=== PATIENT | male | born 1965 | race Caucasian/White ===

== ENCOUNTER 2016-10-21 22:00 | Inpatient (IN) | payer BC ==
[~2016-10-21] VITALS: Ht 175.3 cm; Wt 103.4 kg
--- NOTE | 2016-10-21 22:20 | ED Cardiac General ---
History of Present Illness General Chief Complaint: Cardiac/General Problems Stated Complaint: ELEVATED BLOOD PRESSURE Source: patient Exam Limitations: no limitations History of Present Illness Time seen by provider: 22:18 Initial Comments To ER with reports of hypertension, headache and general malaise. He also reports increasing shortness of breath with minimal activity over the past few days. He's had issues with hypertension in the past and is currently on Bystolic and was started on lisinopril 5 mg 2 days ago. 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 Also states that he's had chest heaviness/tightness that has awakened him from sleep over the course of the past week. He did have a stress test and a cardiac catheterization about 9 years ago. He does not have chest pain present currently, but does c/o headache without focal neurologic symptoms, general fatigue. Location: central Activities at Onset: none NTG SL DATA DEVELOPER: No ASA po DATA DEVELOPER: No Allergies and Home Medications Allergies Coded Allergies: tramadol (Verified Allergy, Unknown, 10/21/16) Review of Systems Constitutional: see HPINo chills, No fever EENTM: No Symptoms Reported Respiratory: See HPI SOA With Exertion Cardiovascular: See HPI Chest Pain Gastrointestinal: No Symptoms Reported Genitourinary: No Symptoms Reported Musculoskeletal: no symptoms reported Skin: no symptoms reported Psychiatric/Neurological: No Symptoms Reported Physical Exam Vital Signs Vital Sign - Last 12Hours 10/21/16 22:00 Temp 98.8 Pulse 73 Resp 20 B/P 161/109 Pulse Ox 99 O2 Delivery Room Air Capillary Refill : General Appearance: No Apparent Distress WD/WN HEENT: PERRL/EOMI TMs Normal Neck: Full Range of Motion Normal Inspection Respiratory: No Accessory Muscle Use No Respiratory Distress Cardiovascular: Regular Rate, Rhythm Normal Peripheral Pulses Gastrointestinal: Normal Bowel Sounds Non Tender Soft Extremity: Normal Capillary Refill Normal Inspection Neurologic/Psychiatric: Alert Oriented x3 No Motor/Sensory Deficits Skin: Normal Color Warm/Dry Progress/Results/Core Measures Results/Orders Lab Results Laboratory Tests Test 10/21/16 22:08 Range/Units Activated Partial Thromboplast Time 27 24-35 SEC Alanine Aminotransferase (ALT/SGPT) 58 H 0-55 U/L Albumin 4.3 3.2-4.5 G/DL Alkaline Phosphatase 96 40-136 U/L Anion Gap 12 5-14 MMOL/L Aspartate Amino Transf (AST/SGOT) 28 5-34 U/L B-Type Natriuretic Peptide < 10.0 <100.0 PG/ML BUN/Creatinine Ratio 12 Basophils # (Auto) 0.0 0.0-0.1 10^3/uL Basophils (%) (Auto) 1 0-10 % Blood Urea Nitrogen 14 7-18 MG/DL Calcium Level 9.2 8.5-10.1 MG/DL Carbon Dioxide Level 22 21-32 MMOL/L Chloride Level 104 98-107 MMOL/L Creatinine 1.13 0.60-1.30 MG/DL Eosinophils # (Auto) 0.1 0.0-0.3 10^3/uL Eosinophils (%) (Auto) 2 0-10 % Estimat Glomerular Filtration Rate > 60 Glucose Level 114 H 70-105 MG/DL Hematocrit 48 40-54 % Hemoglobin 17.0 13.3-17.7 G/DL INR Comment 0.9 0.8-1.4 Lymphocytes # (Auto) 3.6 1.0-4.0 X 10^3 Lymphocytes (%) (Auto) 44 12-44 % Magnesium Level 2.5 H 1.8-2.4 MG/DL Mean Corpuscular Hemoglobin 29 25-34 PG Mean Corpuscular Hemoglobin Concent 35 32-36 G/DL Mean Corpuscular Volume 82 80-99 FL Mean Platelet Volume 11.0 H 7.4-10.4 FL Monocytes # (Auto) 0.7 0.0-1.0 X 10^3 Monocytes (%) (Auto) 8 0-12 % Myoglobin 63.4 10.0-92.0 NG/ML Neutrophils # (Auto) 3.8 1.8-7.8 X 10^3 Neutrophils (%) (Auto) 46 42-75 % Platelet Count 243 130-400 10^3/uL Potassium Level 3.7 3.6-5.0 MMOL/L Prothrombin Time 12.3 12.2-14.7 SEC Red Blood Count 5.84 4.35-5.85 10^6/uL Red Cell Distribution Width 13.1 10.0-14.5 % Sodium Level 138 135-145 MMOL/L Total Bilirubin 1.4 H 0.1-1.0 MG/DL Total Protein 7.2 6.4-8.2 G/DL Troponin I < 0.30 <0.30 NG/ML White Blood Count 8.3 4.3-11.0 10^3/uL My Orders Orders-CROSSPENNIE APRN Cbc With Automated Diff (10/21/16 22:07) Magnesium (10/21/16 22:07) Chest 1 View, Ap/Pa Only (10/21/16 22:07) Ekg Tracing (10/21/16 22:07) Cardiac Profile 1 (10/21/16 22:07) Comprehensive Metabolic Panel (10/21/16 22:07) Myoglobin Serum (10/21/16 22:07) Protime With Inr (10/21/16:) Partial Thromboplastin Time (10/21/16 22:07) O2 (10/21/16 22:07) Monitor-Rhythm Ecg Trace Only (10/21/16 22:07) Lipid Panel (10/22/16 06:00) Saline Lock/Iv-Start (10/21/16 22:07) Ct Head Wo (10/21/16 22:07) BNP (10/21/16 22:07) Labetalol Injection (Normodyne Injection (10/21/16 22:30) Fentanyl Injection (Sublimaze Injection (10/21/16 22:30) Enalaprilat Injection (Vasotec Injection (10/21/16 22:30) Lipase (10/21/16 22:51) Medications Given in ED Current Medications Medications Dose Ordered Sig/Prince Route Start Time Stop Time Status Last Admin Dose Admin Enalaprilat 2.5 mg ONCE ONCE IV 10/21/16 22:30 10/21/16 22:32 DC 10/21/16 22:36 2.5 MG Fentanyl Citrate 50 mcg ONCE ONCE IVP 10/21/16 22:30 10/21/16 22:32 DC 10/21/16 22:36 50 MCG Vital Signs/I&O Vital Sign - Last 12Hours 10/21/16 22:00 Temp 98.8 Pulse 73 Resp 20 B/P 161/109 Pulse Ox 99 O2 Delivery Room Air Diagnostic Imaging Diagonstic Imaging: CT Comments CT scan of the head shows no intracranial hemorrhage or mass effect or edema. No evidence of acute cortical stroke. The visualized sinuses and mastoid air cells are clear. Departure Communication Time/Spoke to Admitting Phy: 23:05 Communication Discussed the case with Dr. Braga. She agrees patient should be admitted for cardiac workup. Time/Spoke to Consulting Physi: 23:05 Communication/Consulting Discussed the case with Dr. Navarro and he agrees to consult Progress Notes 2245- blood pressure was 169/110 on arrival here. Heart rate 70 and regular. Patient was then given a small amount of Vasotec injection, RN believes to be about a quarter of the 2.5 mg dose ordered (0.625 mg) and blood pressure was 150 /93. No additional Vasotec was given even though this reduction in blood pressure was unlikely to be related to the Vasotec. 2306-blood pressure is currently 138/89, heart rate 69 on sinus without ectopy or ST segment changes Impression Impression: Primary Impression: Intermittent chest pain Additional Impressions: Dyspnea on exertion Hypertensive urgency Disposition: ADMITTED INPATIENT Condition: Stable Decision to Admit Reason: Admit from ER (General) Decision to Admit/Date: Oct 21, 2016 Time/Decision to Admit Time: 22:46 Departure-Patient Inst. Referrals: NO,LOCAL PHYSICIAN (PCP/Family) Primary Care Physician PENNIE CROSS APRN Oct 21, 2016 22:20
[2016-10-21] MEDS ORDERED: LABETALOL HCL 20 MG/4 ML VIAL IV ONE (22:30)
[2016-10-21] MEDS ORDERED: fentaNYL INJECTION 100 MCG/2 ML AMP IVP ONE (22:30)
[2016-10-21] MEDS ORDERED: ENALAPRILAT 2.5 MG/2 ML (VASOTEC) VIAL IV ONE (22:30)
[2016-10-21 22:31] LABS: BASOPHILS % (AUTO) 1 % (0-10); EOSINOPHILS # (AUTO) 0.1 10^3/uL (0.0-0.3); EOSINOPHILS % (AUTO) 2 % (0-10); LYMPHOCYTES # (AUTO) 3.6 X 10^3 (1.0-4.0); LYMPHOCYTES % (AUTO) 44 % (12-44); MEAN CORPUSCULAR HEMOGLOBIN 29 PG (25-34); MEAN CORPUSCULAR HGB CONC 35 G/DL (32-36); MEAN CORPUSCULAR VOLUME 82 FL (80-99); MONOCYTES # (AUTO) 0.7 X 10^3 (0.0-1.0); MONOCYTES % (AUTO) 8 % (0-12); NEUTROPHILS # (AUTO) 3.8 X 10^3 (1.8-7.8); NEUTROPHILS % (AUTO) 46 % (42-75); PLATELET COUNT 243 10^3/uL (130-400); RED BLOOD COUNT 5.84 10^6/uL (4.35-5.85); RED CELL DISTRIBUTION WIDTH 13.1 % (10.0-14.5); WHITE BLOOD COUNT 8.3 10^3/uL (4.3-11.0)
[2016-10-21 22:43] LABS: INR 0.9 (0.8-1.4); PROTHROMBIN TIME PATIENT 12.3 SEC (12.2-14.7)
[2016-10-21 22:51] LABS: ALANINE AMINOTRANSFERASE 58 U/L (0-55); ALBUMIN 4.3 G/DL (3.2-4.5); ANION GAP 12 MMOL/L (5-14); ASPARTATE AMINO TRANSFERASE 28 U/L (5-34); BILIRUBIN,TOTAL 1.4 MG/DL (0.1-1.0); BLOOD UREA NITROGEN 14 MG/DL (7-18); BUN/CREATININE RATIO 12; CALCIUM 9.2 MG/DL (8.5-10.1); CARBON DIOXIDE 22 MMOL/L (21-32); CHLORIDE 104 MMOL/L (98-107); CREATININE SERUM 1.13 MG/DL (0.60-1.30); GFR ESTIMATED > 60; GLUCOSE 114 MG/DL (70-105); MAGNESIUM 2.5 MG/DL (1.8-2.4); POTASSIUM 3.7 MMOL/L (3.6-5.0); SODIUM 138 MMOL/L (135-145); TOTAL PROTEIN 7.2 G/DL (6.4-8.2)
[2016-10-21 22:58] LABS: MYOGLOBIN SERUM 63.4 NG/ML (10.0-92.0)
[2016-10-21 23:55] VITALS: BP 154/98
[2016-10-22] VITALS (10 sets, daily range): BP systolic 104–152; BP diastolic 65–99
[2016-10-22] MEDS ORDERED: ACETAMINOPHEN 325 MG TABLET/CAPLET (TYLENOL) ONE (00:01)
[2016-10-22] MEDS ORDERED: IBUPROFEN 800 MG (MOTRIN) TAB PO ONE (00:13)
[2016-10-22] MEDS: IBUPROFEN 800 MG (MOTRIN) TAB PO PRN ×2 (00:32→08:01)
[2016-10-22] MEDS ORDERED: ACETAMINOPHEN 325 MG TABLET/CAPLET (TYLENOL) PO PRN (01:45)
[2016-10-22] MEDS ORDERED: ENALAPRILAT 2.5 MG/2 ML (VASOTEC) VIAL IV PRN (01:45)
[2016-10-22] MEDS ORDERED: ONDANSETRON 4 MG/2 ML (SDV) Z0FRAN IV PRN (01:45)
[2016-10-22 05:11] LABS: CHOLESTEROL 131 MG/DL (< 200); DIRECT LDL 61 MG/DL (1-129); TRIGLYCERIDES 333 MG/DL (<150); VLDL CHOLESTEROL 67 MG/DL (5-40)
--- NOTE | 2016-10-22 06:09 | Diagnostic Imaging Report ---
INDICATION: Hypertension with headache. Comparison with 07/19/2016 FINDINGS: Portable chest shows the lungs to be well-aerated and clear. The heart is not enlarged. No hilar adenopathy. No pulmonary edema. No pneumothorax or pleural effusion. IMPRESSION: Normal portable chest. No changes since previous exam. Dictated by: Dictated on workstation # [id number]
--- NOTE | 2016-10-22 07:39 | Diagnostic Imaging Report ---
PROCEDURE: CT head without contrast. TECHNIQUE: Multiple contiguous axial images were obtained through the brain without the use of intravenous contrast. INDICATION: Hypertension with severe headaches. Baseline. FINDINGS: There is no evidence of intracranial hemorrhage. There is no mass effect or edema. The cortical gyral pattern is normal with no shift of the midline. Basal cisterns are clear. The paranasal sinuses and mastoid air cells are clear. IMPRESSION: Normal CT head without contrast. These findings are in agreement with the preliminary report. Dictated by: Dictated on workstation # [id number]
[2016-10-22] MEDS ORDERED: IBUP-30 PO (08:28)
[2016-10-22] MEDS ORDERED: LISI-556 PO (08:28)
[2016-10-22] MEDS ORDERED: PITA2TAB2 PO (08:28)
[2016-10-22] MEDS ORDERED: NEBI5TAB8 PO (08:28)
--- NOTE | 2016-10-22 08:56 | Consultation-Cardiology ---
HPI-Cardiology Cardiology Consultation Date of Consultation 10/22/16 Date of Admission Indication: chest pain HPI 51-year-old gentleman with history of hypertension, had a cardiac catheterization about 9 years ago and reported that it was normal. 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 Has been having increasing dyspnea on exertion and significant headache, noted to have severe hypertension. Blood pressure improve after loading him with medication. He did not have any further episode of chest pain, still having mild upper epigastric tenderness, reproducible. Denied any palpitation, syncope or near syncopal episodes. Home Medications & Allergies Allergies: Coded Allergies: tramadol (Verified Allergy, Unknown, 10/21/16) Home Medication List Reviewed: Yes IOD-Aumkaf-Qgwnzs Hx Patient Social History Alcohol Use: Occasionally Uses Recreational Drug Use: No Smoking Status: Former Smoker Type Used: Cigarettes Recent Foreign Travel: No Recent Infectious Disease Expo: No Recent Hopitalizations: No Physical Abuse Screen: No Sexual Abuse: No Immunizations Up To Date Date of Influenza Vaccine: Jun 21, 2016 Past Medical History past medical history as discussed below Family Medical History Family Medical Hx noncontributory Constitutional: no symptoms reported see HPI malaise EENTM: no symptoms reported see HPI Respiratory: see HPINo cough, dyspnea on exertionNo hemoptysis, No orthopnea , No phlegm, No short of breath, No stridor, No wheezing, No other Cardiovascular: see HPI chest painNo edema, No Hx of Intervention, No palpitations, No syncope, No vascular heart diseas, No other Gastrointestinal: see HPI abdominal pain other (heartburn) Genitourinary: no symptoms reported see HPI Musculoskeletal: no symptoms reported see HPI Skin: no symptoms reported see HPI Psychiatric/Neurological: No Symptoms Reported See HPI Reviewed Test Results Reviewed Test Results Lab Laboratory Tests Test 10/21/16 22:08 10/22/16 04:07 Range/Units Activated Partial Thromboplast Time 27 24-35 SEC Alanine Aminotransferase (ALT/SGPT) 58 H 0-55 U/L Albumin 4.3 3.2-4.5 G/DL Alkaline Phosphatase 96 40-136 U/L Anion Gap 12 5-14 MMOL/L Aspartate Amino Transf (AST/SGOT) 28 5-34 U/L B-Type Natriuretic Peptide < 10.0 <100.0 PG/ML BUN/Creatinine Ratio 12 Basophils # (Auto) 0.0 0.0-0.1 10^3/uL Basophils (%) (Auto) 1 0-10 % Blood Urea Nitrogen 14 7-18 MG/DL Calcium Level 9.2 8.5-10.1 MG/DL Carbon Dioxide Level 22 21-32 MMOL/L Chloride Level 104 98-107 MMOL/L Creatinine 1.13 0.60-1.30 MG/DL Eosinophils # (Auto) 0.1 0.0-0.3 10^3/uL Eosinophils (%) (Auto) 2 0-10 % Estimat Glomerular Filtration Rate > 60 Glucose Level 114 H 70-105 MG/DL Hematocrit 48 40-54 % Hemoglobin 17.0 13.3-17.7 G/DL INR Comment 0.9 0.8-1.4 Lipase 37 8-78 U/L Lymphocytes # (Auto) 3.6 1.0-4.0 X 10^3 Lymphocytes (%) (Auto) 44 12-44 % Magnesium Level 2.5 H 1.8-2.4 MG/DL Mean Corpuscular Hemoglobin 29 25-34 PG Mean Corpuscular Hemoglobin Concent 35 32-36 G/DL Mean Corpuscular Volume 82 80-99 FL Mean Platelet Volume 11.0 H 7.4-10.4 FL Monocytes # (Auto) 0.7 0.0-1.0 X 10^3 Monocytes (%) (Auto) 8 0-12 % Myoglobin 63.4 10.0-92.0 NG/ML Neutrophils # (Auto) 3.8 1.8-7.8 X 10^3 Neutrophils (%) (Auto) 46 42-75 % Platelet Count 243 130-400 10^3/uL Potassium Level 3.7 3.6-5.0 MMOL/L Prothrombin Time 12.3 12.2-14.7 SEC Red Blood Count 5.84 4.35-5.85 10^6/uL Red Cell Distribution Width 13.1 10.0-14.5 % Sodium Level 138 135-145 MMOL/L Total Bilirubin 1.4 H 0.1-1.0 MG/DL Total Protein 7.2 6.4-8.2 G/DL Troponin I < 0.30 < 0.30 <0.30 NG/ML White Blood Count 8.3 4.3-11.0 10^3/uL Cholesterol Level 131 < 200 MG/DL HDL Cholesterol 27 L 40-60 MG/DL LDL Cholesterol Direct 61 1-129 MG/DL Triglycerides Level 333 H <150 MG/DL VLDL Cholesterol 67 H 5-40 MG/DL Physical Exam Vital Signs Vital Sign - Last 12Hours 10/21/16 22:00 Temp 98.8 Pulse 73 Resp 20 B/P 161/109 Pulse Ox 99 O2 Delivery Room Air Capillary Refill : Less Than 3 Seconds General Appearance: No Apparent Distress WD/WN Eyes: Bilateral Eye EOMI, Bilateral Eye Normal Inspection, Bilateral Eye PERRL HEENT: PERRL/EOMI TMs Normal Normal ENT Inspection Pharynx Normal Neck: Full Range of Motion Normal Inspection Non Tender Supple Carotid Bruit Respiratory: Chest Non Tender Lungs Clear Normal Breath Sounds No Accessory Muscle Use No Respiratory Distress Cardiovascular: Regular Rate, Rhythm No Edema No Gallop No JVD No Murmur Normal Peripheral Pulses Gastrointestinal: Normal Bowel Sounds No Organomegaly No Pulsatile Mass Non Tender Soft Back: Normal Inspection No CVA Tenderness No Vertebral Tenderness Extremity: Normal Capillary Refill Normal Inspection Normal Range of Motion Non Tender No Calf Tenderness No Pedal Edema Neurologic/Psychiatric: Alert Oriented x3 No Motor/Sensory Deficits Normal Mood/Affect Skin: Normal Color Warm/Dry Lymphatic: No Adenopathy A/P-Cardiology Admission Diagnosis Chest pain nonspecific etiology Hypertensive emergency Hyperlipidemia/hypertriglyceridemia Abdominal pain Assessment/Plan Chest pain nonspecific etiology atypical in presentation, resembling angina, planning to proceed with stress test today, cardiac enzymes and EKG did not show any acute abnormality Shortness of breath on exertion, planning to evaluate exercise stress test. Hypertension, hypertensive emergency with headache. Blood pressure is better, secondary to noncompliance with diet and medication, restarted on medication, educated in length about diet. Hyperlipidemia/hypertriglyceridemia. Patient was educated on diet, restart medication and monitor lipids. Gastroesophageal reflux disease, history of peptic ulcer disease, heartburn and abdominal discomfort, tobaccoism, will need to have EGD done as an outpatient. Tobaccoism, patient chewed tobacco daily. Educated on avoiding tobacco product. Obesity, BMI 33, educated on diet and weight loss. Clinical Quality Measures AMI/AHF: ASA po Prior to arrival: No DVT/VTE Risk/Contraindication: Risk Factor Score Per Nursin RFS Level Per Nursing on Admit: 2=Moderate DINAH JOSE MD Oct 22, 2016 08:56
[2016-10-22] MEDS ORDERED: PANTOPRAZOLE 40 MG/10 ML (PROTONIX) VIAL IV SCH (09:00)
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
[2016-10-22] MEDS ORDERED: CATHETER FLUSH 10 ML SYR IV PRN (10:15)
[2016-10-22] MEDS ORDERED: NFNEB10T PO (10:55)
[2016-10-22] MEDS ORDERED: LISI-552 PO (10:55)
[2016-10-22] MEDS ORDERED: lisINopril 20 MG (ZESTRIL) TAB PO NR (10:58)
[2016-10-22] MEDS ORDERED: lisINopril 20 MG (ZESTRIL) TAB ONE (10:58)
[2016-10-22] MEDS ORDERED: CATHETER FLUSH 10 ML SYR IV SCH (14:00)
--- NOTE | 2016-10-23 08:33 | STRESS TEST ---
PROCEDURE PHYSICIAN: DINAH JOSE DATE OF PROCEDURE: 10/22/2016 EXERCISE ECHOCARDIOGRAM STRESS TEST REPORT: REFERRING PHYSICIAN: Dr. Braga. INDICATION FOR THE PROCEDURE: Chest pain. BASELINE HEART RATE: 61 BASELINE BLOOD PRESSURE: 121/71 BASELINE EKG: Sinus rhythm with no ischemic changes. IN SUMMARY: The patient started exercising with a baseline heart rate, blood pressure and EKG mentioned above. He was able to exercise for total of 9 minutes on standard Narendra protocol, achieving maximum heart rate of 144, which is 85% of maximum expected heart rate. With peak exercise level, EKG was showing minimal nondiagnostic changes. Blood pressure was 197/79. He was fairly short of breath. O2 sat was 93%. During recovery, heart rate and blood pressure returned to baseline, EKG returned to baseline. Echocardiographic images were acquired and reviewed in the parasternal long axis parasternal short axis, apical 4 chamber and apical 2 chamber views. Review of the images showed normal left ventricular size with normal contractility with no ischemic changes. IN CONCLUSION: 1. Good exercise tolerance a total of 9 minutes on standard Narendra protocol. Total of 10.1 METs, achieving 85% of maximum expected heart rate. 2. Hypertensive response to exercise returned to baseline during recovery. 3. Minimal nondiagnostic EKG changes with exercise. Returned to baseline during recovery. 4. Normal echocardiographic images at rest and with peak stress test with no ischemic changes. 5. Definity was used for enhancement of the left ventricular cavity. Job ID: [id number] Dictated Date: 10/22/2016 17:39:29 Obstetrics/Gynecology Nurse Date: 10/23/2016 08:30:30 / jennifer
== END 2016-10-22 11:35 | disposition home or self-care (01) | DRG 305 ==
LOC: EDUNIT# 22:06 → ER 22:06 → ICU 22:30
PROVIDERS: ADMIT Family Medicine; ATTEND Family Medicine
DX: I16.0 Hypertensive urgency (principal); I10 Essential (primary) hypertension; R07.89 Other chest pain; Z91.14 Patient's other noncompliance with medication regimen; E78.5 Hyperlipidemia, unspecified; E78.1 Pure hyperglyceridemia; K21.9 Gastro-esophageal reflux disease without esophagitis; F17.220 Nicotine dependence, chewing tobacco, uncomplicated; E66.9 Obesity, unspecified; Z68.33 Body mass index [BMI] 33.0-33.9, adult
CPT/HCPCS: 36415; 70450; 71010; 80053; 80061; 83690; 83735; 83874; 83880; 84484; 85025; 85610; 85730; 93005; 96374; 96375

== ENCOUNTER 2016-11-03 09:00 | Outpatient (CLI) | payer BC ==
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
[~2016-11-03] VITALS: Ht 175.3 cm; Wt 108.9 kg
[~2016-11-03 09:00] MED LIST: IBUP-30 PO; LISI-552 PO; LISI-556 PO; NEBI5TAB8 PO; NFNEB10T PO; PITA2TAB2 PO
[2016-11-03] MEDS ORDERED: NFNEB10T PO (09:30)
[2016-11-03] MEDS ORDERED: LISI-552 PO (09:30)
[2016-11-03] MEDS ORDERED: AMOX500C2 PO (09:30)
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
[2016-11-04] MEDS ORDERED: PANT40TA2 PO (11:43)
[2016-11-04] MEDS ORDERED: SUCR1TAB36 PO (11:43)
[2016-11-08] MEDS ORDERED: DIAZ5TAB3 PO (10:59)
[2016-11-08] MEDS ORDERED: SENN-1 PO (10:59)
[2016-11-08] MEDS ORDERED: OXYC-465 PO (10:59)
[2016-11-08] MEDS ORDERED: ASPI325T32 PO (10:59)
[2016-11-08] MEDS ORDERED: OXC20TCR PO (10:59)
[2016-11-14] MEDS ORDERED: AMLO10TA2 PO (11:19)
== END 2016-11-03 09:41 ==
LOC: PREOP 09:00
PROVIDERS: ATTEND Surgery
DX: Z01.818 Encounter for other preprocedural examination (principal); K21.9 Gastro-esophageal reflux disease without esophagitis; Z12.11 Encounter for screening for malignant neoplasm of colon

== ENCOUNTER 2016-11-04 09:40 | Day surgery (SDC) | payer BC ==
[~2016-11-04] VITALS: Ht 175.3 cm; Wt 108.9 kg
[~2016-11-04 09:40] MED LIST changes: +AMOX500C2 PO
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
[2016-11-04] MEDS ORDERED: NS IV 1000 ML 1,000 ML IV STA (10:01)
--- NOTE | 2016-11-04 10:03 | Progress Note-Pre Operative ---
Pre-Operative Progress Note H&P Reviewed The H&P was reviewed, patient examined and no changes noted. Date H&P Reviewed: Nov 04, 2016 Time H&P Reviewed: 10:03 Pre-Operative Diagnosis: gerd screening colonoscopy MOISÉS MEREDITH DO Nov 04, 2016 10:03 am
[2016-11-04] MEDS ORDERED: NS IV 1000 ML 1,000 ML ONE (10:04)
[2016-11-04] MEDS ORDERED: HURRICAINE EXT TUBE (BENZOCAINE) XX PRN (10:15)
[2016-11-04 10:19] VITALS: BP 126/74
[2016-11-04] MEDS ORDERED: HURRICAINE EXT TUBE (BENZOCAINE) ONE (10:42)
[2016-11-04] MEDS ORDERED: PROPOFOL INJECTION 50 ML IV ONE (10:46)
[2016-11-04] MEDS ORDERED: MIDAZOLAM 2 MG/2 ML (VERSED) VIAL ONE ×2 (10:46→10:51)
[2016-11-04] MEDS ORDERED: SUCR1TAB36 PO (11:43)
[2016-11-04] MEDS ORDERED: PANT40TA2 PO (11:43)
--- NOTE | 2016-11-04 11:43 | Progress Note-Post Operative ---
Post-Operative Progess Note Pre-Operative Diagnosis gerd screening colonoscopy Post-Operative Diagnosis gastritis, colon polyps Post-Op Procedure Note Date of Procedure: Nov 04, 2016 Name of Procedure: egd c biposies, colonoscopy hot bx polypectomy x 4 Procedure Note/Findings see note Anesthesia Type per hospital administrator Estimated blood loss (mL): none Specimen(s) collected antrum, body stomach, descending and sigmoid polyps MOISÉS MEREDITH DO Nov 04, 2016 11:43 am
--- NOTE | 2016-11-04 11:46 | Discharge Inst-Simple/Standard ---
Discharge Inst-Standard Discharge Medications New, Converted or Re-Newed RX: Transmitted to Pharmacy Patient Instructions/Follow Up Plan of Care/Instructions/FU: Follow up with Dr. Temple in 2 - 3 weeks. Take medication as directed. Will need repeat colonoscopy in 3 to 5 years or sooner if any changes in current condition. Activity as Tolerated: Yes Discharge Diet: No Restrictions GARRICK MCNALLY APRN Nov 04, 2016 11:45
[2016-11-04 12:10] VITALS: BP 122/71
[2016-11-04 12:30] VITALS: BP 98/65
[2016-11-04 12:40] VITALS: BP 98/65
--- NOTE | 2016-11-05 10:25 | PROCEDURE REPORT ---
PROCEDURE PHYSICIAN: MOISÉS MEREDITH DATE OF PROCEDURE: 11/04/2016 PREOPERATIVE DIAGNOSIS: GERD, screening colonoscopy. POSTOPERATIVE DIAGNOSES: 1. Gastritis. 2. Colon polyps. PROCEDURE: 1. EGD with biopsies. 2. Colonoscopy with hot biopsy polypectomy x4. SURGEON: Maverick. ANESTHESIA: Per INSPECTOR PACKER. ESTIMATED BLOOD LOSS: None. COMPLICATIONS: None. INDICATIONS: The patient is a 51-year-old male who had recent epigastric abdominal pain and was started on Protonix and had relief. The patient has stopped taking Protonix at this time. He has not had screening colonoscopy either to date. He understands the risks and benefits and wished to proceed with procedures. Consent was signed on chart. PROCEDURE: The patient was taken the endoscopy suite, placed in left lateral recumbent position. Timeout was performed. The scope was then inserted the mouth, down the esophagus, stomach and the duodenum without difficulty. There were no polyps, masses, or ulcerations within the duodenum. The scope was slowly retracted back into the stomach where it was further insufflated noting significant erythema in the antrum and body of the stomach. Biopsies of the antrum and body were obtained. The scope was retroflexed noting no hiatal hernia. No other pathology was noted. The scope was returned to its normal position and slowly withdrawn into the distal esophagus, which had no polyps, masses, ulcerations or erythematous changes. The scope was continued be slowly retracted back noting no other pathology. COLONOSCOPY: Digital rectal exam was performed. There is no palpable polyps, masses, ulcerations. The scope was inserted in the rectum, advanced all of the way to the cecum with minimal difficulty. Prep was adequate. The scope was then slowly retracted. There were no polyps, masses, ulcerations within the cecum, ascending, transverse colon. Within the descending colon, 2 small polyps were present, which hot biopsy polypectomy was performed on each of these. The scope was continued be slowly retracted back where the sigmoid colon 2 other small polyps were present, which hot biopsy polypectomies were performed. The scope was returned back to the rectum where it was also retroflexed noting no other pathology. The scope was returned to its normal position and slowly withdrawn until completely removed. The patient tolerated the procedure well without any complications and taken to the recovery room in stable condition. RECOMMENDATIONS: The patient will need repeat colonoscopy in 3 to 5 years. We will also keep him on the Protonix and will change to a Protonix 40 mg twice a day for 2 weeks and then once daily. We will also put on Carafate 1 gram 4 times a day. We will see him back in the office in approximately 3 weeks to discuss pathology results and see how he is doing at that time. If he has any problems prior the patient will be reevaluated at that time. If he has any problems with his colon prior to 3 to 5 time frame, he should be reexamined at that time for repeat colonoscopy. Job ID: [id number] Dictated Date: 11/04/2016 11:46:41 Fabrication Supervisor Date: 11/05/2016 10:17:11 / derrick
[2016-11-08] MEDS ORDERED: OXYC-465 PO (10:59)
[2016-11-08] MEDS ORDERED: DIAZ5TAB3 PO (10:59)
[2016-11-08] MEDS ORDERED: ASPI325T32 PO (10:59)
[2016-11-08] MEDS ORDERED: SENN-1 PO (10:59)
[2016-11-08] MEDS ORDERED: OXC20TCR PO (10:59)
[2016-11-14] MEDS ORDERED: AMLO10TA2 PO (11:19)
== END 2016-11-04 12:40 | disposition home or self-care (01) ==
LOC: ENDO 09:40
PROVIDERS: ATTEND Surgery
DX: Z12.11 Encounter for screening for malignant neoplasm of colon (principal); D12.4 Benign neoplasm of descending colon; K63.5 Polyp of colon; K29.70 Gastritis, unspecified, without bleeding
CPT/HCPCS: 88305

== ENCOUNTER 2016-11-05 13:49 | Inpatient (IN) | payer BC ==
[~2016-11-05] VITALS: Ht 175.3 cm; Wt 109.8 kg
[~2016-11-05 13:49] MED LIST changes: +PANT40TA2 PO; +SUCR1TAB36 PO
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
--- NOTE | 2016-11-05 14:13 | Diagnostic Imaging Report ---
EXAM: CT head. TECHNIQUE: Noncontrast axial images of the brain were obtained. INDICATION: Left-sided weakness Comparison 10/21/16. FINDINGS: There is no intracranial hemorrhage, edema or mass effect. The brain parenchyma appears unremarkable. No hydrocephalus. The visualized portions of the orbits and paranasal sinuses appear unremarkable. IMPRESSION: Unremarkable study. Dictated by: Dictated on workstation # [id number]
[2016-11-05 14:14] LABS: BASOPHILS % (AUTO) 1 % (0-10); EOSINOPHILS # (AUTO) 0.1 10^3/uL (0.0-0.3); EOSINOPHILS % (AUTO) 2 % (0-10); LYMPHOCYTES # (AUTO) 2.4 X 10^3 (1.0-4.0); LYMPHOCYTES % (AUTO) 36 % (12-44); MEAN CORPUSCULAR HEMOGLOBIN 29 PG (25-34); MEAN CORPUSCULAR HGB CONC 34 G/DL (32-36); MEAN CORPUSCULAR VOLUME 84 FL (80-99); MEAN PLATELET VOLUME 10.7 FL (7.4-10.4); MONOCYTES # (AUTO) 0.7 X 10^3 (0.0-1.0); MONOCYTES % (AUTO) 11 % (0-12); NEUTROPHILS # (AUTO) 3.4 X 10^3 (1.8-7.8); NEUTROPHILS % (AUTO) 51 % (42-75); PLATELET COUNT 216 10^3/uL (130-400); WHITE BLOOD COUNT 6.7 10^3/uL (4.3-11.0)
--- NOTE | 2016-11-05 14:14 | Diagnostic Imaging Report ---
PA view of the chest. INDICATION: Left arm numbness. FINDINGS: The lungs are clear. The heart size is normal. No effusion or pneumothorax. The mediastinum and john appear unremarkable. IMPRESSION: Unremarkable exam. Dictated by: Dictated on workstation # [id number]
[2016-11-05] MEDS ORDERED: NS 100 ML (IVPB) BAG IV ONE (14:15)
[2016-11-05] MEDS ORDERED: IOHEXOL 350 MG/ML 100 ML (OMNIPAQUE 350) VIAL IV ONE (14:15)
[2016-11-05 14:30] LABS: PROTHROMBIN TIME PATIENT 12.6 SEC (12.2-14.7)
[2016-11-05 14:38] LABS: ALANINE AMINOTRANSFERASE 64 U/L (0-55); ALBUMIN 4.1 G/DL (3.2-4.5); ANION GAP 10 MMOL/L (5-14); ASPARTATE AMINO TRANSFERASE 34 U/L (5-34); BILIRUBIN,TOTAL 1.5 MG/DL (0.1-1.0); BLOOD UREA NITROGEN 10 MG/DL (7-18); BUN/CREATININE RATIO 9; CALCIUM 8.9 MG/DL (8.5-10.1); CARBON DIOXIDE 24 MMOL/L (21-32); CHLORIDE 108 MMOL/L (98-107); CREATININE SERUM 1.08 MG/DL (0.60-1.30); GFR ESTIMATED > 60; GLUCOSE 118 MG/DL (70-105); POTASSIUM 4.1 MMOL/L (3.6-5.0); SODIUM 142 MMOL/L (135-145); TOTAL PROTEIN 6.9 G/DL (6.4-8.2)
[2016-11-05] MEDS ORDERED: fentaNYL INJECTION 100 MCG/2 ML AMP IVP ONE (15:15)
[2016-11-05] MEDS ORDERED: KETOROLAC 30 MG/ML VIAL IVP ONE (15:15)
--- NOTE | 2016-11-05 15:44 | Diagnostic Imaging Report ---
PROCEDURE: CT angiography of the head and CT angiography of the neck with and without contrast. TECHNIQUE: Contiguous noncontrast images were obtained from the skull base through the vertex. After intravenous contrast administration, helical CT angiography of the neck was performed. Source data was reformatted into multiple MIP projections. Delayed post contrast acquisition was also obtained. INDICATION: Left-sided weakness. Vision loss. 80 mL of Omnipaque 350 is administered intravenously. FINDINGS: CTA NECK: The aortic arch appears normal. There is normal variation of common origin of the brachiocephalic and left common carotid artery. The subclavian arteries are normal. The right common carotid artery and the left common carotid artery are normal. No significant plaque at the carotid bifurcation of the right side. Minimal calcified plaque in the proximal left internal carotid artery is seen. Both external carotid arteries are patent. The internal carotid artery segments in the neck appear normal. The vertebral arteries are codominant and both sides demonstrate patency with no significant disease. Soft tissue findings in the neck demonstrate unremarkable appearance of the lung apices, thyroid gland, submandibular and parotid glands. The visualized portions of the paranasal sinuses appear grossly unremarkable. No significantly enlarged lymph nodes in the cervical chain on either side. The osseous structures demonstrate ossification with a posterior longitudinal ligament in the cervical spine most prominent at the C2/3 level and appears to result in spinal canal stenosis reducing the AP dimension of the spinal canal at the disc level to 7 mm with suggestion of mild to moderate compression of the spinal cord at this level. Effect on the spinal cord can be assessed with an MRI of the cervical spine. CTA HEAD: The basilar artery is relatively small in caliber but is patent. There is roughly 50% contribution to the perfusion of the right POWDER CUTTING OPERATOR from a well formed right PCOM. The left the PCOM appears very small. The intracranial segments of the right internal carotid artery appears patent with no significant stenosis. The right MCA and ALEX are patent. The left ICA intracranially is patent with patent MCA and ALEX branches. The central venous sinuses appear patent. The postcontrast parenchymal phase images in the brain demonstrate no enhancing mass. IMPRESSION: CTA NECK: 1. Minimal atherosclerotic plaque in the proximal left ICA with no significant stenosis or vessel occlusion. 2. 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 This can be better assessed with MRI of the cervical spine. CTA HEAD: No significant vessel occlusion, stenosis or aneurysm in the central intracranial arteries. Dictated by: Dictated on workstation # [id number]
[2016-11-05 16:00] VITALS: BP 135/78
[2016-11-05] MEDS ORDERED: NS IV 1000 ML 1,000 ML ONE (16:44)
[2016-11-05] MEDS ORDERED: LORazepam INJ 2 MG/ML (ATIVAN) VIAL IVP ONE (16:45)
[2016-11-05] MEDS: NS IV 1000 ML 1,000 ML IV SCH (16:59)
[2016-11-05] MEDS ORDERED: CATHETER FLUSH 10 ML SYR IV PRN (17:00)
[2016-11-05] MEDS ORDERED: fentaNYL INJECTION 100 MCG/2 ML AMP IVP NR (17:15)
[2016-11-05] MEDS ORDERED: LORazepam INJ 2 MG/ML (ATIVAN) VIAL IVP NR (17:15)
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
[2016-11-05] MEDS ORDERED: GADOBUTROL 10 MMOL/10 ML (GADAVIST) VIAL IV ONE (18:00)
--- NOTE | 2016-11-05 18:07 | Diagnostic Imaging Report ---
PROCEDURE: MR imaging cervical spine without contrast. TECHNIQUE: Multiplanar, multisequence MR imaging of the cervical spine was performed without contrast. INDICATION: 51-year-old male presents with onset of left arm numbness and blurred vision in left eye COMPARISON: CT head and neck from 11/05/16. FINDINGS: The craniovertebral junction is normal. The cervical cord and thecal sac demonstrate no abnormal MR signal. The cervical vertebral bodies appear well aligned and the vertebral heights appear well-maintained. There is a disc degeneration at essentially all cervical levels. There is anterior bridging osteophytes at C3-4, C4-5 and C6-7. There is also prominent bridging of the osteophyte, posteriorly, at C2-3 demonstrated on the previous CTA. C2-3: Broad-based disc osteophyte complex which impresses on the thecal sac and indents the cord. There is moderate severe left lateral recess narrowing and moderate left neural foraminal encroachment. Associated canal stenosis is noted with the canal measuring approximately 8 mm in the AP dimension. Ossification of the posterior longitudinal ligament extends along the posterior aspect of the C3 vertebral body. C3-4: Broad-based disc osteophyte complex which impresses on the thecal sac. There is some mild to moderate left lateral recess narrowing and left neural foramen encroachment. These findings are accentuated by bilateral hypertrophic facet changes, left greater than right. C4-5: Disc degeneration with broad-based disc osteophyte complex which impresses on the thecal sac and mildly indents the cord. There is no significant canal stenosis or neural foramen encroachment. C5-6: Broad-based disc osteophyte complex which impresses on the thecal sac and indents the cord. There is moderate bilateral lateral recess narrowing and moderate severe left neural foramen encroachment and mild to moderate right neural foramen encroachment. C6-7: Minimal chronic broad-based disc osteophyte complex which impresses on the thecal sac and mildly indents the cord. There is moderate left lateral recess narrowing and left neural foramen encroachment with mild right lateral recess narrowing. C7-T1: Disc degeneration but no canal stenosis or neural foramen encroachment. IMPRESSION: Moderate severe cervical spondylosis with disc degeneration at all levels with broad-based disc osteophyte complex at multiple levels. There is also ossification of the posterior longitudinal ligament in the upper cervical level. This does result in borderline canal stenosis. There is, however, moderate to severe lateral recess narrowing and neural foramen encroachment at the levels described above. Additional nonemergent findings, as described. Dictated by: Dictated on workstation # [id number]
--- NOTE | 2016-11-05 18:30 | Diagnostic Imaging Report ---
PROCEDURE: MR imaging of the brain with and without contrast. TECHNIQUE: Multiplanar, multisequence MR imaging of the brain was performed with and without contrast. INDICATION: 51-year-old male presents with new onset left arm numbness and blurred vision in the left eye. COMPARISONS: CTA head and neck from 11/05/16. FINDINGS: There is patient motion which does limit assessment. Midline structures are not displaced. Lateral, third and fourth ventricles are normal in size, shape and anatomic position. There is no evidence of mass, mass effect, hydrocephalus or hemorrhage. The rapp-white differentiation is normal. There are small focal areas of increased FLAIR and T2 signal in both the cerebral hemispheres most likely representing areas of chronic microvascular ischemic change. 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 Rapp-white differentiation is otherwise well maintained and there is no sulcal effacement. There are no abnormal extra-axial fluid collections or hemorrhage. Basilar cisterns appear normal. There are no abnormal areas of enhancement. The craniovertebral junction is normal. The sellar and suprasellar regions are unremarkable. The visualized vascular flow voids are also unremarkable. The petrous apices as well as the seventh and eighth nerve complexes are normal. The semicircular canals and cochlea show normal signal. Sinuses, orbits and mastoid air cells are also grossly normal. IMPRESSION: 1. Patient motion does limit assessment. 2. Scattered areas of nonspecific white matter change in both cerebral hemispheres. This pattern of gliosis does not suggest a demyelinating process. 3. 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 This is a normal variation. Additional nonemergent findings, as described above. Dictated by: Dictated on workstation # [id number]
[2016-11-05 20:00] VITALS: BP 131/76
[2016-11-05] MEDS: NEBIVOLOL 5 MG TAB (BYSTOLIC) PO SCH (20:14)
[2016-11-05] MEDS: SUCRALFATE 1 GM (CARAFATE) TAB PO SCH (20:15)
[2016-11-05] MEDS ORDERED: fentaNYL INJECTION 100 MCG/2 ML AMP IVP PRN (20:30)
[2016-11-05] MEDS ORDERED: KETOROLAC 15 MG/ML VIAL IVP PRN (20:30)
[2016-11-05] MEDS ORDERED: SUCRALFATE 1 GM (CARAFATE) TAB PO SCH (21:00)
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
[2016-11-05] MEDS ORDERED: SUCCINYLCHOLINE INJ 100 MG/5 ML SYR INJ ONE (23:59)
[2016-11-05] MEDS ORDERED: MIDAZOLAM 5 MG/5 ML (VERSED) VIAL IV ONE (23:59)
[2016-11-06 00:30] VITALS: BP 122/56
[2016-11-06] MEDS: NS IV 1000 ML 1,000 ML IV SCH ×4 (02:41→18:00)
[2016-11-06 04:10] VITALS: BP 130/67
[2016-11-06] MEDS: SUCRALFATE 1 GM (CARAFATE) TAB PO SCH ×4 (04:46→19:59)
[2016-11-06] MEDS: PANTOPRAZOLE 40 MG (PROTONIX) TAB PO SCH ×2 (06:06→19:59)
[2016-11-06 06:49] LABS: BILIRUBIN,URINE NEGATIVE (NEGATIVE); KETONES,URINE NEGATIVE (NEGATIVE); LEUKOCYTE ESTERASE ,URINE NEGATIVE (NEGATIVE); NITRITE,URINE NEGATIVE (NEGATIVE); PH,URINE 6 (5-9); PROTEIN,URINE 1+ (NEGATIVE); UROBILINOGEN,URINE NORMAL (NORMAL)
[2016-11-06 06:56] LABS: SQUAMOUS EPITHELIAL CELL,UR 0-2 /HPF
[2016-11-06] MEDS ORDERED: PANTOPRAZOLE 40 MG (PROTONIX) TAB PO SCH (07:00)
[2016-11-06 07:46] VITALS: BP 138/69
[2016-11-06] MEDS ORDERED: NAPR500T3 PO (08:34)
[2016-11-06] MEDS: lisINopril 20 MG (ZESTRIL) TAB PO SCH (09:00)
[2016-11-06] MEDS ORDERED: ASPIRIN 81 MG CHEW (CHILDREN'S ASA) PO SCH (09:00)
[2016-11-06] MEDS ORDERED: GENTAMICIN 40 MG/ML 2 ML INJ SDV ONE (10:52)
[2016-11-06 11:02] VITALS: BP 155/64
--- NOTE | 2016-11-06 12:12 | Diagnostic Imaging Report ---
PROCEDURE: US Carotid Duplex Bilateral. TECHNIQUE: Multiple real-time grayscale images were obtained over the carotid arteries in various projections bilaterally. Additional duplex Doppler and color Doppler images were also obtained. INDICATION: TIA. FINDINGS: Grayscale images demonstrate no significant plaque. There is color Doppler demonstrating patency of the common, internal and external carotid arteries bilaterally. There is antegrade flow in the vertebral arteries. The peak systolic velocities in the right ICA are 97, 98 and 76 CM per second from proximal to distal and on the left are 91, 96 and 89 CM per second. ICA versus CC ratio is up to 0.9 on the right side and 0.9 on the left. IMPRESSION: Estimated underlying stenosis is under 25% bilaterally. Dictated by: Dictated on workstation # [id number]
[2016-11-06] MEDS: LACTATED RINGERS 1,000 ML IV PRN ×3 (12:50→15:34)
[2016-11-06] MEDS ORDERED: DEXMEDETOMIDINE PRE-MIX (OR) 50 ML IV ONE ×2 (13:10→13:11)
[2016-11-06] MEDS ORDERED: proPOfol 200 MG/20 ML (DIPRIVAN) VIAL IV ONE (13:17)
[2016-11-06] MEDS ORDERED: ONDANSETRON 4 MG/2 ML (SDV) Z0FRAN ONE ×2 (13:17→17:18)
[2016-11-06] MEDS ORDERED: LIDOCAINE PF 2% 10 ML (XYLOCAINE) AMP ONE (13:17)
[2016-11-06] MEDS ORDERED: MIDAZOLAM 2 MG/2 ML (VERSED) VIAL ONE (13:17)
[2016-11-06] MEDS ORDERED: LACTATED RINGERS 1,000 ML IV ONE ×4 (13:17→17:57)
[2016-11-06] MEDS ORDERED: fentaNYL INJECTION 250 MCG/5 ML AMP ONE (13:17)
[2016-11-06] MEDS ORDERED: SUCCINYLCHOLINE INJ 100 MG/5 ML SYR ONE (13:17)
[2016-11-06] MEDS ORDERED: SEVOFLURANE (ULTANE) 15 ML INHAL SOLN ONE ×5 (13:17→17:57)
[2016-11-06] MEDS ORDERED: TRANEXAMIC ACID 100 MG/ML 10 ML INJECTION IV ONE (13:33)
[2016-11-06] MEDS ORDERED: ceFAZolin 2 GM/50 ML NS 50 ML IV ONE (14:15)
[2016-11-06] MEDS ORDERED: ceFAZolin INJECTION 1,000 MG in NS (IVPB) 50 ML IV ONE (14:15)
[2016-11-06] MEDS ORDERED: ceFAZolin 1,000 MG (ANCEF) VIAL ONE (14:19)
[2016-11-06] MEDS ORDERED: ROCURONIUM 50 MG/5 ML (ZEMURON) VIAL IV ONE (14:22)
[2016-11-06] MEDS ORDERED: PHENYLEPHRINE 100 MCG/ML 10 ML (ANESTHESIA) SYR ONE (16:11)
[2016-11-06] MEDS ORDERED: HYDROmorphone (DILAUDID) 2 MG/ML VIAL ONE (17:18)
[2016-11-06] MEDS ORDERED: morphine INJ 10 MG/ML 1ML (SYR OR VIAL) ONE (17:18)
--- NOTE | 2016-11-06 17:43 | Progress Note-Post Operative ---
Post-Operative Progess Note [employer] Pre-Operative Diagnosis Cervical Stenosis, OPLL, Cervical Spondylosis with Myelopathy Post-Operative Diagnosis Same Post-Op Procedure Note Date of Procedure: Nov 06, 2016 Name of Procedure: C2-7 Laminectomy w/ foraminotomies and C2-T2 PSF with instrumentation and bone graft Procedure Note/Findings Stenosis Anesthesia Type GETA Estimated blood loss (mL): 1500 TONNY RICHTER MD Nov 06, 2016 5:43 pm
[2016-11-06] MEDS ORDERED: morphine INJ 10 MG/ML 1ML (SYR OR VIAL) IVP PRN ×2 (18:00)
[2016-11-06] MEDS ORDERED: ONDANSETRON 4 MG/2 ML (SDV) Z0FRAN IV PRN (18:00)
[2016-11-06] MEDS ORDERED: PROMETHAZINE 12.5 MG (PHENERGAN) SUPP PR PRN (18:00)
[2016-11-06] MEDS ORDERED: MEPERIDINE (DEMEROL) INJ 50 MG/ML IVP PRN (18:00)
[2016-11-06] MEDS ORDERED: ONDANSETRON 4 MG/2 ML (SDV) Z0FRAN IVP PRN (18:00)
[2016-11-06] MEDS ORDERED: HYDROmorphone (DILAUDID) 2 MG/ML VIAL IVP PRN (18:00)
[2016-11-06] MEDS ORDERED: DIAZEPAM 5 MG (VALIUM) TABLET PO PRN (18:00)
[2016-11-06] MEDS ORDERED: diphenhydrAMINE 25 MG TAB (BENADRYL) PO PRN (18:00)
[2016-11-06] MEDS ORDERED: PROMETHAZINE 25 MG (PHENERGAN) TAB PO PRN (18:00)
--- NOTE | 2016-11-06 18:22 | Diagnostic Imaging Report ---
EXAM: Fluoroscopy. INDICATION: Cervical fusion FINDINGS: Fluoroscopic assistance was provided for Dr. Troncoso during this cervical fusion exam. 18.5 seconds of fluoroscopy time was visualized. AP and lateral spot films of the cervical spine were obtained. There are bilateral pedicle screws and interconnecting rods extending from C2 through the upper most thoracic spine. IMPRESSION: 1. Fluoroscopic assistance was provided for Dr. Troncoso. 2. A followup AP and lateral study would be recommended for continued evaluation. Dictated by: Dictated on workstation # [id number]
[2016-11-06 19:16] VITALS: BP 106/56
[2016-11-06] MEDS: oxyCODONE/APAP 10/325MG (PERCOCET 10) TABLET PO PRN (19:59)
[2016-11-06 20:30] VITALS: BP 105/58
[2016-11-06] MEDS: NEBIVOLOL 5 MG TAB (BYSTOLIC) PO SCH (21:00)
--- NOTE | 2016-11-06 21:44 | Progress Note (SOAP) ---
Subjective Subjective/Events-last exam PT SEEN THIS MORNING - HE DENIED ANY HEADACHE, DIZZINESS, NECK PAIN, ARM PAIN OR NUMBNESS. HE REPORTS THAT HE IS NERVOUS THIS MORNING ABOUT HIS UPCOMING SURGERY LATER TODAY. Review of Systems General: Fatigue Malaise HEENT: No Head Aches Pulmonary: No Dyspnea, No Cough Cardiovascular: No: Chest Pain, Palpitations Gastrointestinal: No: Abdominal Pain, Nausea Musculoskeletal: No: neck pain Neurological: No: Confusion, Weakness Objective Exam Vital Signs Date Time Temp Pulse Resp B/P Pulse Ox O2 Delivery O2 Flow Rate FiO2 11/06/16 20:24 4.50 11/06/16 19:16 97.4 68 18 106/56 98 Room Air 11/06/16 11:02 98.3 73 20 155/64 96 Room Air 11/06/16 09:00 96 Room Air 11/06/16 07:46 98.1 75 20 138/69 97 Room Air 11/06/16 07:00 74 11/06/16 04:10 97.8 76 18 130/67 96 Room Air 11/06/16 01:00 74 11/06/16 00:30 96.8 71 18 122/56 95 Room Air I & O 11/06/16 07:00 Intake Total 1000 ml Output Total 700 ml Balance 300 ml Capillary Refill : Less Than 3 Seconds General Appearance: No Apparent Distress WD/WN HEENT: PERRL/EOMI Respiratory: Chest Non Tender Lungs Clear Normal Breath Sounds No Accessory Muscle Use No Respiratory Distress Cardiovascular: Regular Rate, Rhythm Gastrointestinal: normal bowel sounds non tender soft no organomegaly no pulsatile mass Extremity: No Pedal Edema Neurologic/Psychiatric: Alert Oriented x3 Normal Mood/Affect Skin: Normal Color Warm/Dry Lymphatic: No Adenopathy Assessment/Plan Assessment/Plan Assess & Plan/Chief Complaint TIA MIGRAINE HEADACHE HYPERTENSION ANXIETY C2/C3 MILD TO MODERATE CORD COMPRESSION TIA SYMPTOMS - CT SCAN NEGATIVE - - MRI NEGATIVE - PLANNING ON SURGERY OF PATIENT'S NECK TODAY - WILL NOT START ASPIRIN AT THIS TIME. - SEE EMERGENCY DEPT REPORT OF CONVERSATION WITH SPECIALIST FROM [facility] WITH DR. CEVALLOS'S RECOMMENDATIONS. WILL GET CAROTID ULTRASOUND TODAY. HYPERTENSION -RESTARTED HOME MEDS. PLANNING ON SURGERY LATER TODAY WITH DR. RICHTER. C2/3 COMPRESSION - DEFER TO DR. RICHTER Diagnosis/Problems: Clinical Quality Measures DVT/VTE Risk/Contraindication: Risk Factor Score Per Nursin RFS Level Per Nursing on Admit: 1=Low/No VTE PPX Stroke: Date of last known well: Nov 05, 2016 Time of last known well: 12:00 CRYSTAL BESS MD Nov 06, 2016 21:44
[2016-11-06] MEDS: ceFAZolin INJECTION 2,000 MG in NS (IVPB) 50 ML IV SCH (22:37)
[2016-11-07 00:49] VITALS: BP 103/56
[2016-11-07] MEDS: NS IV 1000 ML 1,000 ML IV SCH ×3 (02:25→22:28)
[2016-11-07] MEDS: oxyCODONE/APAP 10/325MG (PERCOCET 10) TABLET PO PRN ×3 (02:52→10:10)
[2016-11-07 04:20] VITALS: BP 108/56
[2016-11-07] MEDS: ceFAZolin INJECTION 2,000 MG in NS (IVPB) 50 ML IV SCH ×2 (05:22→14:20)
[2016-11-07] MEDS: SUCRALFATE 1 GM (CARAFATE) TAB PO SCH ×4 (05:23→20:44)
[2016-11-07] MEDS: PANTOPRAZOLE 40 MG (PROTONIX) TAB PO SCH ×2 (05:23→20:44)
[2016-11-07] MEDS: MULTIVIT W/MINERALS TAB (THERAGRAN M) PO SCH (05:24)
[2016-11-07 05:25] LABS: MEAN PLATELET VOLUME 11.5 FL (7.4-10.4); RED BLOOD COUNT 3.89 10^6/uL (4.35-5.85); RED CELL DISTRIBUTION WIDTH 12.8 % (10.0-14.5)
[2016-11-07 05:47] LABS: ALANINE AMINOTRANSFERASE 42 U/L (0-55); ALBUMIN 3.1 G/DL (3.2-4.5); ANION GAP 8 MMOL/L (5-14); ASPARTATE AMINO TRANSFERASE 31 U/L (5-34); BILIRUBIN,TOTAL 1.5 MG/DL (0.1-1.0); BLOOD UREA NITROGEN 10 MG/DL (7-18); BUN/CREATININE RATIO 11; CALCIUM 7.7 MG/DL (8.5-10.1); CARBON DIOXIDE 23 MMOL/L (21-32); CHLORIDE 108 MMOL/L (98-107); CREATININE SERUM 0.92 MG/DL (0.60-1.30); GFR ESTIMATED > 60; GLUCOSE 120 MG/DL (70-105); POTASSIUM 4.4 MMOL/L (3.6-5.0); SODIUM 139 MMOL/L (135-145); TOTAL PROTEIN 4.9 G/DL (6.4-8.2)
--- NOTE | 2016-11-07 06:35 | Progress Note (SOAP) ---
Subjective Subjective/Events-last exam Feeling ok, moderate pain, but arms/legs moving better and numbness improved. Objective Exam Vital Signs Date Time Temp Pulse Resp B/P Pulse Ox O2 Delivery O2 Flow Rate FiO2 11/07/16 04:20 98.1 78 20 108/56 98 Nasal Cannula 4.00 11/07/16 01:00 66 11/07/16 00:49 98.6 75 20 103/56 98 Nasal Cannula 4.00 11/06/16 22:03 63 11/06/16 21:00 Nasal Cannula 4.00 11/06/16 20:30 96.9 74 20 105/58 99 Nasal Cannula 4.00 11/06/16 20:24 4.50 11/06/16 19:16 97.4 68 18 106/56 98 Nasal Cannula 4.00 11/06/16 11:02 98.3 73 20 155/64 96 Room Air 11/06/16 09:00 96 Room Air 11/06/16 07:46 98.1 75 20 138/69 97 Room Air 11/06/16 07:00 74 I & O 11/07/16 07:00 Intake Total 3825 ml Output Total 1465 ml Balance 2360 ml Capillary Refill : Less Than 3 Seconds General Appearance: No Apparent Distress Neck: Supple Tender Midline Respiratory: No Accessory Muscle Use No Respiratory Distress Cardiovascular: Regular Rate, Rhythm Neurologic/Psychiatric: Alert Oriented x3 No Motor/Sensory Deficits Results Lab Laboratory Tests 11/07/16 04:54: Alanine Aminotransferase (ALT/SGPT) 42, Albumin 3.1L, Alkaline Phosphatase 61, Anion Gap 8, Aspartate Amino Transf (AST/SGOT) 31, BUN/Creatinine Ratio 11, Blood Urea Nitrogen 10, Calcium Level 7.7L, Carbon Dioxide Level 23, Chloride Level 108H, Creatinine 0.92, Estimat Glomerular Filtration Rate > 60, Glucose Level 120H, Hematocrit 34L, Hemoglobin 11.3#L, Mean Corpuscular Hemoglobin 29, Mean Corpuscular Hemoglobin Concent 34, Mean Corpuscular Volume 87, Mean Platelet Volume 11.5H, Platelet Count 191, Potassium Level 4.4, Red Blood Count 3.89L, Red Cell Distribution Width 12.8, Sodium Level 139, Total Bilirubin 1.5H , Total Protein 4.9L, White Blood Count 10.0 Assessment/Plan Assessment/Plan Assess & Plan/Chief Complaint Cervical Spondylosis Ossification of Posterior Longitudinal ligament Cervical Stenosis - Neural Canal and neural foraminal due to osseous structures S/P C2-T2 PSF with Lami Up with PT today Pain control Defer to Dr Braga for other Medical Issues Likely home Thursday from spine perspective unless other issues require additional treatment/time Diagnosis/Problems: Clinical Quality Measures DVT/VTE Risk/Contraindication: Risk Factor Score Per Nursin RFS Level Per Nursing on Admit: 1=Low/No VTE PPX Stroke: Date of last known well: Nov 05, 2016 Time of last known well: 12:00 TONNY RICHTER MD Nov 07, 2016 6:34 am
[2016-11-07] MEDS: lisINopril 20 MG (ZESTRIL) TAB PO SCH (08:40)
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
--- NOTE | 2016-11-07 10:03 | Progress Note (SOAP) ---
Subjective Subjective/Events-last exam PT IS A 51 Y/O MALE WHO IS KNOWN TO ME FROM CLINIC AND PREVIOUS HOSPITALIZATIONS. HE WAS ADMITTED WITH TIA LIKE SYMPTOMS AND PATIENT WAS FOUND TO HAVE CERVICAL SPINE STENOSIS. PT IS FEELING LESS PAIN FROM HIS NECK TODAY - FEELS LIKE HIS MUSCLES ARE NOT QUITE TIGHT COMPARED TO YESTERDAY. Review of Systems General: Fatigue Malaise HEENT: No Head Aches Pulmonary: No Dyspnea, No Cough Cardiovascular: No: Chest Pain Gastrointestinal: No: Abdominal Pain, Nausea Musculoskeletal: : neck pain Neurological: : WeaknessNo: Confusion Objective Exam Vital Signs Date Time Temp Pulse Resp B/P Pulse Ox O2 Delivery O2 Flow Rate FiO2 11/07/16 06:53 73 11/07/16 04:20 98.1 78 20 108/56 98 Nasal Cannula 4.00 11/07/16 01:00 66 11/07/16 00:49 98.6 75 20 103/56 98 Nasal Cannula 4.00 11/06/16 22:03 63 11/06/16 21:00 Nasal Cannula 4.00 11/06/16 20:30 96.9 74 20 105/58 99 Nasal Cannula 4.00 11/06/16 20:24 4.50 11/06/16 19:16 97.4 68 18 106/56 98 Nasal Cannula 4.00 11/06/16 11:02 98.3 73 20 155/64 96 Room Air I & O 11/07/16 07:00 Intake Total 3825 ml Output Total 1665 ml Balance 2160 ml Capillary Refill : Less Than 3 Seconds General Appearance: No Apparent Distress WD/WN HEENT: PERRL/EOMI Pharynx Normal Neck: Full Range of Motion Supple Respiratory: Chest Non Tender Lungs Clear Normal Breath Sounds Cardiovascular: Regular Rate, Rhythm Gastrointestinal: normal bowel sounds non tender soft no organomegaly Extremity: Normal Capillary Refill No Pedal Edema Neurologic/Psychiatric: Alert Oriented x3 Normal Mood/Affect Other (NECK WITH MAGUI IN PLACE, DRESSING BLOODY) Skin: Warm/Dry Lymphatic: No Adenopathy Results Lab Laboratory Tests 11/07/16 04:54: Alanine Aminotransferase (ALT/SGPT) 42, Albumin 3.1L, Alkaline Phosphatase 61, Anion Gap 8, Aspartate Amino Transf (AST/SGOT) 31, BUN/Creatinine Ratio 11, Blood Urea Nitrogen 10, Calcium Level 7.7L, Carbon Dioxide Level 23, Chloride Level 108H, Creatinine 0.92, Estimat Glomerular Filtration Rate > 60, Glucose Level 120H, Hematocrit 34L, Hemoglobin 11.3#L, Mean Corpuscular Hemoglobin 29, Mean Corpuscular Hemoglobin Concent 34, Mean Corpuscular Volume 87, Mean Platelet Volume 11.5H, Platelet Count 191, Potassium Level 4.4, Red Blood Count 3.89L, Red Cell Distribution Width 12.8, Sodium Level 139, Total Bilirubin 1.5H , Total Protein 4.9L, White Blood Count 10.0 Microbiology 11/05/16 MRSA Screen - Final, Complete MRSA not isolated Assessment/Plan Assessment/Plan Assess & Plan/Chief Complaint TIA MIGRAINE HEADACHE HYPERTENSION ANXIETY 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 CEVALLOS'S RECOMMENDATIONS. HYPERTENSION -RESTARTED HOME MEDS. C2/3 COMPRESSION - DEFER TO DR. RICHTER Clinical Quality Measures DVT/VTE Risk/Contraindication: Risk Factor Score Per Nursin RFS Level Per Nursing on Admit: 1=Low/No VTE PPX Stroke: Date of last known well: Nov 05, 2016 Time of last known well: 12:00 CRYSTAL BESS MD Nov 07, 2016 10:03
[2016-11-07] MEDS ORDERED: ASPIRIN E.C. 325 MG (ECOTRIN) TABLET PO NR (10:10)
[2016-11-07] MEDS ORDERED: LORazepam INJ 2 MG/ML (ATIVAN) VIAL IVP PRN (10:45)
[2016-11-07] MEDS ORDERED: fentaNYL PCA 300 MCG/30 ML VIAL IV PRN (10:45)
[2016-11-07] MEDS ORDERED: fentaNYL INJECTION 100 MCG/2 ML AMP IVP NR (10:52)
[2016-11-07] MEDS ORDERED: LORazepam INJ 2 MG/ML (ATIVAN) VIAL IVP NR (10:53)
[2016-11-07 12:45] VITALS: BP 121/68
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
--- NOTE | 2016-11-07 13:34 | Anesthesia-General Post-Op ---
General Patient Condition Mental Status/LOC: Same as Preop Cardiovascular: Satisfactory Nausea/Vomiting: Absent Respiratory: Satisfactory Pain: Controlled Complications: Absent Post Op Complications Complications None Follow Up Care/Instructions Patient Instructions None needed. Anesthesia/Patient Condition Patient Condition Patient is doing well, stable vital signs, no apparent adverse anesthesia problems. 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 No complications reported per nursing. NAYELI MERCER CRNA Nov 07, 2016 13:34
[2016-11-07 13:45] VITALS: BP 127/73
--- NOTE | 2016-11-07 14:26 | OPERATIVE REPORT ---
PROCEDURE PHYSICIAN: TONNY TRONCOSO DATE OF PROCEDURE: 11/06/2016 PREOPERATIVE DIAGNOSES: 1. Cervical stenosis neural canal, neural foraminal due to disk and osseous structures. 2. 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 3. Cervical spondylosis with myelopathy. POSTOPERATIVE DIAGNOSES: 1. Cervical stenosis neural canal, neural foraminal due to disk and osseous structures. 2. 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 3. Cervical spondylosis with myelopathy. PROCEDURES PERFORMED: 1. C2-3 laminectomy. 2. C3-4 laminectomy. 3. C3-4 laminectomy. 4. C4-5 laminectomy. 5. C5-6 laminectomy. 6. C6-7 laminectomy. 7. Bilateral foraminotomies from C2-7. 8. C2-3 posterior spinal fusion. 9. C3-4 posterior spinal fusion. 10. C4-5 posterior spinal fusion. 11. C5-6 posterior spinal fusion. 12. C6-7 posterior spinal fusion. 13. C7-T1 posterior spinal fusion. 14. T1-2 posterior spinal fusion. 15. C2-T2 posterior lateral mass and pedicle screw instrumentation. 16. Autograph for spine surgery, local. 17. Allograph for spine surgery, morselized. DATE AND TIME OF SURGERY: Please see anesthesia record. IMPLANTS USED: Medtronic vertex select instrumentation and MagniFuse bone graft. SURGEON: Dr. Troncoso. HEAD TURNING MACHINE OPERATOR: SARAH oFrte. ROLE OF PRODUCT TESTER FIBERGLASS: Aid in retraction of the procedure, aid in implantation, instrumentation, wound closure. ANESTHESIA: General endotracheal. ESTIMATED BLOOD LOSS: 1500 mL. IV FLUIDS: Please see anesthesia record. ANTIBIOTICS: Ancef. COMPLICATIONS: None. Mr. Mc is a 51 year-old male with severe onset of neck pain, weakness, numbness, tingling, gait disturbance and myelopathy features, which were rapidly progressive, intolerable, admitted for symptoms and high-grade stenosis found on imaging and desires operative treatment. DESCRIPTION OF PROCEDURE: The patient was taken to the preoperative holding area and brought back to the operative suite. After adequate induction of general anesthetic and appropriate preoperative antibiotics, the patient was turned prone on Bucky table. Careful padding to the lower extremities and sterile prep and drape the posterior cervicothoracic spine. Spinal monitoring was performed throughout the procedure and stable. Incision made from C2 to T2. Full exposure carried out to the edges of the lateral mass. Once exposure was confirmed and levels were verified, screw holes were placed for T1 and T2 pedicle screws. Lateral mass screws were drilled into C3-4-5 and 6 and pars screws were placed into C2. At this point, the decompression was begun. Bilateral C2-3, 3-4, 4-5, 5-6 and 6-7 laminal foraminotomies were created. Once the foraminotomies were created bilaterally, a trough was created to perform and en bloc removal of the lamina and a dome laminectomy of 2 and 7 was performed with a complete laminectomy of C3-4-5 and 6. Once these were removed in their entirety, hemostasis was achieved with bipolar electrocautery and FloSeal. Decompression was assured, neural monitoring was stable. Screws were placed in all the holes, rods were applied. Correction and raising of the head to try to correct some of the kyphosis was present and then once final tightening was performed, a high speed bur was used to corticate posterior lateral structures from C2 to T2 and a combination of autograft and allograft bone was packed in the posterior lateral gutters along the length of the fusion for the fusion portion the procedure. Deep drain was placed. The wound was closed in layers. The patient was transferred to the recovery room in stable condition having tolerated procedure well with stable spinal monitoring. Job ID: [id number] Dictated Date: 11/06/2016 17:47:01 Motion Picture Equipment Supervisor Date: 11/07/2016 14:13:49 / jennifer
[2016-11-07 15:35] VITALS: BP 138/71
[2016-11-07 19:15] VITALS: BP 147/70
[2016-11-07] MEDS: NEBIVOLOL 5 MG TAB (BYSTOLIC) PO SCH (20:44)
[2016-11-07] MEDS: ACETAMINOPHEN 325 MG TABLET/CAPLET (TYLENOL) PO PRN (23:32)
[2016-11-08] VITALS: BP 135/71
--- NOTE | 2016-11-08 00:57 | Progress Note (SOAP) ---
Subjective Subjective/Events-last exam POD #2, s/p C2-7 laminectomy, bilateral laminoforaminotomies, C2-T2 PSF Complains of severe posterior cervical pain BUE paresthesia improvement Ambulated in room with PT on POD #1 Review of Systems General: No Chills Pulmonary: No Cough Cardiovascular: No: Chest Pain Gastrointestinal: No: Abdominal Pain, Nausea, Vomiting Musculoskeletal: : neck pain Neurological: No: Incoordination, Numbness, Weakness Objective Exam Vital Signs Date Time Temp Pulse Resp B/P Pulse Ox O2 Delivery O2 Flow Rate FiO2 11/07/16 23:32 100.9 11/07/16 21:00 18 11/07/16 21:00 Room Air 11/07/16 19:15 99.1 106 22 147/70 97 Room Air 11/07/16 19:00 96 11/07/16 18:16 20 11/07/16 15:35 97.5 92 20 138/71 97 Room Air 11/07/16 13:45 99.1 92 20 127/73 94 Room Air 11/07/16 12:45 98.2 90 16 121/68 97 Nasal Cannula 2.50 11/07/16 12:18 86 11/07/16 11:53 20 11/07/16 09:00 Room Air 11/07/16 06:53 73 11/07/16 04:20 98.1 78 20 108/56 98 Nasal Cannula 4.00 11/07/16 01:00 66 I & O 11/08/16 07:00 Intake Total 1750 ml Output Total 1240 ml Balance 510 ml Capillary Refill : Less Than 3 Seconds General Appearance: Moderate Distress Neck: Other (Posterior cervical soreness with muscle spasm) Respiratory: No Accessory Muscle Use No Respiratory Distress Gastrointestinal: soft Extremity: Normal Capillary Refill Normal Inspection Other (BUE and BLE motor intact, NVI) Neurologic/Psychiatric: Alert Oriented x3 No Motor/Sensory Deficits 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 Norm as Tested Skin: Other (Dressing CDI) Results Lab Laboratory Tests 11/07/16 04:54: Alanine Aminotransferase (ALT/SGPT) 42, Albumin 3.1L, Alkaline Phosphatase 61, Anion Gap 8, Aspartate Amino Transf (AST/SGOT) 31, BUN/Creatinine Ratio 11, Blood Urea Nitrogen 10, Calcium Level 7.7L, Carbon Dioxide Level 23, Chloride Level 108H, Creatinine 0.92, Estimat Glomerular Filtration Rate > 60, Glucose Level 120H, Hematocrit 34L, Hemoglobin 11.3#L, Mean Corpuscular Hemoglobin 29, Mean Corpuscular Hemoglobin Concent 34, Mean Corpuscular Volume 87, Mean Platelet Volume 11.5H, Platelet Count 191, Potassium Level 4.4, Red Blood Count 3.89L, Red Cell Distribution Width 12.8, Sodium Level 139, Total Bilirubin 1.5H , Total Protein 4.9L, White Blood Count 10.0 Microbiology 11/05/16 MRSA Screen - Final, Complete MRSA not isolated Assessment/Plan Assessment/Plan Assess & Plan/Chief Complaint Cervical Myelopathy Cervical stenosis with OPLL Intractable pain 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
[2016-11-08] MEDS: oxyCODONE/APAP 10/325MG (PERCOCET 10) TABLET PO PRN (01:50)
[2016-11-08 04:00] VITALS: BP 130/60
[2016-11-08 06:00] LABS: MEAN PLATELET VOLUME 10.9 FL (7.4-10.4); RED BLOOD COUNT 3.57 10^6/uL (4.35-5.85); RED CELL DISTRIBUTION WIDTH 12.8 % (10.0-14.5); WHITE BLOOD COUNT 8.6 10^3/uL (4.3-11.0)
[2016-11-08 06:30] LABS: ALANINE AMINOTRANSFERASE 32 U/L (0-55); ANION GAP 8 MMOL/L (5-14); ASPARTATE AMINO TRANSFERASE 31 U/L (5-34); BILIRUBIN,TOTAL 0.9 MG/DL (0.1-1.0); BLOOD UREA NITROGEN 6 MG/DL (7-18); BUN/CREATININE RATIO 7; CALCIUM 7.7 MG/DL (8.5-10.1); CARBON DIOXIDE 24 MMOL/L (21-32); CHLORIDE 108 MMOL/L (98-107); CREATININE SERUM 0.84 MG/DL (0.60-1.30); GFR ESTIMATED > 60; GLUCOSE 128 MG/DL (70-105); POTASSIUM 3.9 MMOL/L (3.6-5.0); SODIUM 140 MMOL/L (135-145); TOTAL PROTEIN 5.1 G/DL (6.4-8.2)
[2016-11-08] MEDS: SUCRALFATE 1 GM (CARAFATE) TAB PO SCH ×4 (06:33→21:29)
[2016-11-08] MEDS: MULTIVIT W/MINERALS TAB (THERAGRAN M) PO SCH (06:33)
[2016-11-08] MEDS: PANTOPRAZOLE 40 MG (PROTONIX) TAB PO SCH ×2 (06:33→21:29)
[2016-11-08] MEDS: lisINopril 20 MG (ZESTRIL) TAB PO SCH (08:14)
[2016-11-08] MEDS: ASPIRIN E.C. 325 MG (ECOTRIN) TABLET PO SCH (08:14)
[2016-11-08] MEDS: oxyCODONE ER 20 MG (OxyCONTIN CR) TAB PO SCH ×3 (08:14→21:30)
[2016-11-08 08:23] VITALS: BP 110/62
[2016-11-08] MEDS: NS IV 1000 ML 1,000 ML IV SCH ×2 (08:26→17:27)
[2016-11-08] MEDS: DIAZEPAM 5 MG (VALIUM) TABLET PO PRN ×2 (10:56→17:12)
[2016-11-08] MEDS ORDERED: OXC20TCR PO (10:59)
[2016-11-08] MEDS ORDERED: DIAZ5TAB3 PO (10:59)
[2016-11-08] MEDS ORDERED: SENN-1 PO (10:59)
[2016-11-08] MEDS ORDERED: ASPI325T32 PO (10:59)
[2016-11-08] MEDS ORDERED: OXYC-465 PO (10:59)
--- NOTE | 2016-11-08 11:42 | Physical Therapy Progress Note ---
Therapy Progress Note Patient refused tx x2 today. Patient states he is having 10/10 pain in his neck and a lot of spasms. He does not want to participate at this time, however , he states he has been ambulating to the bathroom and actually took a shower this morning. Will check back Thursday if he is still here. ALIZE BUSTOS PT Nov 08, 2016 11:42
[2016-11-08 12:13] VITALS: BP 124/71
[2016-11-08 16:00] VITALS: BP 116/68
--- NOTE | 2016-11-08 16:13 | Progress Note (SOAP) ---
Subjective Subjective/Events-last exam PT STATES THAT HE IS FEELING BETTER TODAY - HE IS HAVING NECK PAIN, BUT IT HAS IMPROVED. Review of Systems General: Fatigue Pulmonary: No Dyspnea Cardiovascular: No: Chest Pain Gastrointestinal: No: Nausea Musculoskeletal: : neck pain Neurological: : Weakness Objective Exam Vital Signs Date Time Temp Pulse Resp B/P Pulse Ox O2 Delivery O2 Flow Rate FiO2 11/08/16 12:13 99.0 81 16 124/71 100 Room Air 11/08/16 09:00 Room Air 11/08/16 08:23 96.2 80 16 110/62 93 Room Air 11/08/16 07:00 81 11/08/16 04:00 97.0 91 22 130/60 94 Room Air 11/08/16 01:00 109 11/08/16 00:02 99.7 11/08/16 00:00 98.4 109 22 135/71 92 Room Air 11/07/16 23:32 100.9 11/07/16 21:00 18 11/07/16 21:00 Room Air 11/07/16 19:15 99.1 106 22 147/70 97 Room Air 11/07/16 19:00 96 11/07/16 18:16 20 I & O 11/08/16 07:00 Intake Total 3100 ml Output Total 1685 ml Balance 1415 ml Capillary Refill : Less Than 3 Seconds General Appearance: No Apparent Distress WD/WN HEENT: PERRL/EOMI Neck: Supple Respiratory: Chest Non Tender Lungs Clear Normal Breath Sounds Cardiovascular: Regular Rate, Rhythm Gastrointestinal: normal bowel sounds non tender soft no organomegaly Extremity: No Pedal Edema Neurologic/Psychiatric: Alert Oriented x3 No Motor/Sensory Deficits Skin: Warm/Dry Lymphatic: No Adenopathy Results Lab Laboratory Tests 11/08/16 05:40: Alanine Aminotransferase (ALT/SGPT) 32, Albumin 3.0L, Alkaline Phosphatase 59, Anion Gap 8, Aspartate Amino Transf (AST/SGOT) 31, BUN/Creatinine Ratio 7, Blood Urea Nitrogen 6L, Calcium Level 7.7L, Carbon Dioxide Level 24, Chloride Level 108H, Creatinine 0.84, Estimat Glomerular Filtration Rate > 60, Glucose Level 128H, Hematocrit 31L, Hemoglobin 10.5L, Mean Corpuscular Hemoglobin 29, Mean Corpuscular Hemoglobin Concent 34, Mean Corpuscular Volume 88, Mean Platelet Volume 10.9H, Platelet Count 166, Potassium Level 3.9, Red Blood Count 3.57L, Red Cell Distribution Width 12.8, Sodium Level 140, Total Bilirubin 0.9, Total Protein 5.1L, White Blood Count 8.6 Microbiology 11/05/16 MRSA Screen - Final, Complete MRSA not isolated Assessment/Plan Assessment/Plan Assess & Plan/Chief Complaint TIA MIGRAINE HEADACHE HYPERTENSION ANXIETY 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 CEVALLOS'S RECOMMENDATIONS. HYPERTENSION -RESTARTED HOME MEDS. C2/3 COMPRESSION - DEFER TO DR. RICHTER - MUSCLE SPASMS - THE VALIUM WAS SOPPED LAST NIGHT BY SPECIALIST -- I RESTARTED AROUND 10PM TODAY. Clinical Quality Measures DVT/VTE Risk/Contraindication: Risk Factor Score Per Nursin RFS Level Per Nursing on Admit: 1=Low/No VTE PPX Stroke: Date of last known well: Nov 05, 2016 Time of last known well: 12:00 CRYSTAL BESS MD Nov 08, 2016 16:13
[2016-11-08 20:04] VITALS: BP 97/51
[2016-11-08] MEDS: NEBIVOLOL 5 MG TAB (BYSTOLIC) PO SCH (21:29)
[2016-11-08] MEDS: ACETAMINOPHEN 325 MG TABLET/CAPLET (TYLENOL) PO PRN (23:22)
[2016-11-09] VITALS: BP 128/61
[2016-11-09] MEDS: DIAZEPAM 5 MG (VALIUM) TABLET PO PRN (01:31)
[2016-11-09] MEDS: NS IV 1000 ML 1,000 ML IV SCH ×2 (03:56→14:08)
[2016-11-09 04:00] VITALS: BP 143/75
[2016-11-09] MEDS: MULTIVIT W/MINERALS TAB (THERAGRAN M) PO SCH (06:35)
[2016-11-09] MEDS: PANTOPRAZOLE 40 MG (PROTONIX) TAB PO SCH ×2 (06:35→20:42)
[2016-11-09] MEDS: SUCRALFATE 1 GM (CARAFATE) TAB PO SCH ×4 (06:35→20:43)
[2016-11-09] MEDS: ASPIRIN E.C. 325 MG (ECOTRIN) TABLET PO SCH (08:10)
[2016-11-09] MEDS: lisINopril 20 MG (ZESTRIL) TAB PO SCH (08:10)
[2016-11-09] MEDS: oxyCODONE ER 20 MG (OxyCONTIN CR) TAB PO SCH ×3 (08:10→20:42)
[2016-11-09 08:15] VITALS: BP 132/77
--- NOTE | 2016-11-09 09:03 | Progress Note (SOAP) ---
Subjective Subjective/Events-last exam Was doing much better yesterday, but overnight started spasming and having a lot of pain. He feels like he is hurting too much to go home today. Objective Exam Vital Signs Date Time Temp Pulse Resp B/P Pulse Ox O2 Delivery O2 Flow Rate FiO2 11/09/16 04:00 98.4 85 16 143/75 93 Room Air 11/09/16 00:00 99.1 96 21 128/61 90 Room Air 11/08/16 21:00 Room Air 11/08/16 20:04 99.3 81 16 97/51 96 Room Air 11/08/16 16:00 100.2 85 24 116/68 91 Room Air 11/08/16 12:13 99.0 81 16 124/71 100 Room Air I & O 11/09/16 07:00 Intake Total 3680 ml Output Total 1320 ml Balance 2360 ml Capillary Refill : Less Than 3 Seconds General Appearance: Mild Distress Neck: Limited Range of Motion Tender Midline Respiratory: No Accessory Muscle Use No Respiratory Distress Gastrointestinal: soft Extremity: Normal Capillary Refill Neurologic/Psychiatric: Alert Oriented x3 No Motor/Sensory Deficits Results Lab Microbiology 11/05/16 MRSA Screen - Final, Complete MRSA not isolated Assessment/Plan Assessment/Plan Assess & Plan/Chief Complaint Cervical Spondylosis Ossification of Posterior Longitudinal ligament Cervical Stenosis - Neural Canal and neural foraminal due to osseous structures S/P C2-T2 PSF with Lami Up with PT today Pain control Likely home tomorrow if pain is controlled better Clinical Quality Measures DVT/VTE Risk/Contraindication: Risk Factor Score Per Nursin RFS Level Per Nursing on Admit: 1=Low/No VTE PPX Stroke: Date of last known well: Nov 05, 2016 Time of last known well: 12:00 TONNY RICHTER MD Nov 09, 2016 9:03 am
[2016-11-09] MEDS: oxyCODONE/APAP 10/325MG (PERCOCET 10) TABLET PO PRN ×2 (10:15→18:37)
[2016-11-09] MEDS ORDERED: DIAZEPAM 2 MG (VALIUM) TAB PO ONE (10:45)
[2016-11-09 11:43] VITALS: BP 133/78
--- NOTE | 2016-11-09 11:59 | Progress Note (SOAP) ---
Subjective Subjective/Events-last exam PT REPORTS THAT HE IS IN QUITE A BIT OF PAIN - HAS NOT HAD ADEQUATE PAIN CONTROL SINCE 11PM LAST NIGHT AND IS HAVING MUSCLE SPAMS OF HIS NECK AND UPPER BACK Review of Systems General: Fatigue Malaise HEENT: No Head Aches Pulmonary: No Dyspnea, No Cough Cardiovascular: No: Chest Pain Gastrointestinal: No: Abdominal Pain, Nausea Musculoskeletal: : back pain (UPPER BACK): neck pain Neurological: : WeaknessNo: Confusion Objective Exam Vital Signs Date Time Temp Pulse Resp B/P Pulse Ox O2 Delivery O2 Flow Rate FiO2 11/09/16 11:43 98.3 85 16 133/78 93 Room Air 11/09/16 09:00 Room Air 11/09/16 08:15 99.3 82 20 132/77 95 Room Air 11/09/16 04:00 98.4 85 16 143/75 93 Room Air 11/09/16 00:00 99.1 96 21 128/61 90 Room Air 11/08/16 21:00 Room Air 11/08/16 20:04 99.3 81 16 97/51 96 Room Air 11/08/16 16:00 100.2 85 24 116/68 91 Room Air 11/08/16 12:13 99.0 81 16 124/71 100 Room Air I & O 11/09/16 07:00 Intake Total 3680 ml Output Total 1320 ml Balance 2360 ml Capillary Refill : Less Than 3 Seconds General Appearance: No Apparent Distress WD/WN HEENT: PERRL/EOMI Pharynx Normal Respiratory: Chest Non Tender Lungs Clear Normal Breath Sounds Cardiovascular: Regular Rate, Rhythm Gastrointestinal: normal bowel sounds non tender soft no organomegaly no pulsatile mass Extremity: No Pedal Edema Neurologic/Psychiatric: Alert Oriented x3 No Motor/Sensory Deficits Normal Mood/Affect Skin: Warm/Dry Lymphatic: No Adenopathy Results Lab Microbiology 11/05/16 MRSA Screen - Final, Complete MRSA not isolated Assessment/Plan Assessment/Plan Assess & Plan/Chief Complaint TIA MIGRAINE HEADACHE HYPERTENSION ANXIETY 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 CEVALLOS'S RECOMMENDATIONS. HYPERTENSION -RESTARTED HOME MEDS. C2/3 COMPRESSION - DEFER TO DR. RICHTER - MUSCLE SPASMS -SCHEDULE VALIUM THREE TIMES DAILY. Clinical Quality Measures DVT/VTE Risk/Contraindication: Risk Factor Score Per Nursin RFS Level Per Nursing on Admit: 1=Low/No VTE PPX Stroke: Date of last known well: Nov 05, 2016 Time of last known well: 12:00 CRYSTAL BESS MD Nov 09, 2016 11:59
[2016-11-09] MEDS: DIAZEPAM 5 MG (VALIUM) TABLET PO SCH ×2 (14:12→20:43)
[2016-11-09 16:00] VITALS: BP 125/74
[2016-11-09] MEDS: NEBIVOLOL 5 MG TAB (BYSTOLIC) PO SCH (20:42)
[2016-11-10] VITALS (22 sets, daily range): BP systolic 77–153; BP diastolic 40–95
[2016-11-10] MEDS: NS IV 1000 ML 1,000 ML IV SCH ×2 (00:14→19:04)
[2016-11-10] MEDS: SUCRALFATE 1 GM (CARAFATE) TAB PO SCH ×4 (06:37→21:00)
[2016-11-10] MEDS: MULTIVIT W/MINERALS TAB (THERAGRAN M) PO SCH (06:37)
[2016-11-10] MEDS: PANTOPRAZOLE 40 MG (PROTONIX) TAB PO SCH (06:37)
[2016-11-10] MEDS: oxyCODONE/APAP 10/325MG (PERCOCET 10) TABLET PO PRN (06:39)
[2016-11-10] MEDS ORDERED: FUROSEMIDE 40 MG/4 ML INJ (LASIX) ONE (08:48)
[2016-11-10] MEDS ORDERED: FUROSEMIDE 40 MG/4 ML INJ (LASIX) IVP ONE ×2 (08:50→13:45)
[2016-11-10] MEDS ORDERED: NALOXONE 0.4 MG/ML 1 ML (NARCAN) VIAL ONE (08:51)
[2016-11-10] MEDS ORDERED: NALOXONE 0.4 MG/ML 1 ML (NARCAN) VIAL IV ONE ×2 (08:54→13:45)
--- NOTE | 2016-11-10 09:22 | Physical Therapy Progress Note ---
Therapy Progress Note Per nursing will not be seen due to getting ready to be sent to ICU for possible PE. Nursing states pt was at 40% Sat. when they arrived. 1 visit, no tx. YAN WEISS PTA Nov 10, 2016 09:22
--- NOTE | 2016-11-10 09:27 | Physical Therapy Daily Note ---
PT Daily Note-Current Subjective Pt sitting in recliner upon arrival. Pt reports feeling better. Pt agrees to PT. Mental Status Patient Orientation: Person, Place, Situation Transfers Functional [place] Measure 0=Not Assessed/NA 4=Minimal Assistance 1=Total Assistance 5=Supervision or Setup 2=Maximal Assistance 6=Modified [place] 3=Moderate Assistance 7=Complete IndependenceIRFPAI Quality Coding Scale 6 Independent with activity with or without an assistive device 5 Patient requires set up or clean up by helper. Patient completes activity by themselves 4 Supervision or touching assist (CGA). [place] provide cues , steadying assist 3 The helper provides less than half the effort to complete the activity 2 The helper provides more than half the effort to complete the activity 1 Dependent. The helper does all the effort to complete an activity 7 Patient refused to complete or attempt activity 9 The patient did not perform the activity before the current illness or injury 88 Not attempted due to Medical conditions or safety concerns Transfers (B, C, W/C) (FIM): 5 Scootin Sit to/from Stand: 5 Sit to Stand (QC): 5 Weight Bearing Weight Bearing Restriction: Full Weight Bearing Location Restriction: LE Bilateral Gait Training Does the Patient Walk?: Yes Gait (FIM): 4 Distance (FIM): 3=150 ft Distance: 400' Walk 50 ft with 2 Turns(QC): 4 Walk 150 ft (QC): 4 Gait Level of Assist: 4 Gait Persons Needed: 1 Gait Assistive Device: FWW Pt walks with normalized gait. Wheelchair Training Does the Pt Use a Wheelchair?: No Treatments Pt transfers from recliner and ambulates in hallway using FWW at [facility]. Pt returns to recliner to rest with feet at end of tx. Pt is left with all needs met. Assessment Current Status: Good Progress Pt tolerates ambulation better than previous tx and walks farther and more independence. PT Resident Physician In Radiology Goals Resident Physician In Radiology Goals PT [facility]pc Goals Time Frame: Nov 14, 2016 Transfers (B,C,W/C) (FIM): 6 Rollin Gait (FIM): 6 Distance: 150' Gait Assistive Device: FWW PT Plan Problem List Problem List: Activity Tolerance, Functional Strength, Balance Treatment/Plan Treatment Plan: Continue Plan of Care Treatment Plan: Bed Mobility, Education, Functional Activity [place], Functional Strength, Gait, Safety, Therapeutic Exercise, Transfers Treatment Duration: Nov 14, 2016 Visits Per Week: 5-6 Minutes/Day (M-F): 15-30 Minutes/Day (Sat/[place]): 15-30 Safety Risks/Education Patient Education: Gait Training, Correct Positioning, Safety Issues Teaching Recipient: Patient, Significant Other Teaching Methods: Discussion Response to Teaching: Verbalize Understanding Time/GCodes Time In: 855 Time Out: 920 Total Billed Treatment Time: 25 Total Billed Treatment visit, GT (17m) & FA (8m) YAN WEISS PTA Nov 10, 2016 09:27
--- NOTE | 2016-11-10 09:56 | Consultation-Cardiology ---
HPI-Cardiology Cardiology Consultation Date of Consultation 11/10/16 Date of Admission Indication: acute respiratory failure HPI 51 years old gentleman who was seen in the hospital for chest pain and shortness of breath about 2 weeks ago had a stress test did not show any ischemia, admitted on November 05 for headache and numbness in his arm, underwent CT 2-7 laminectomy surgery on November 06, 2016, was doing well and getting ready for discharge today, this morning he was noted to have more facial swelling and increasing shortness of breath, tachycardic, transferred to the intensive care unit. Upper my evaluation he was on BiPAP machine. Unable to provide full history, history was obtained by reviewing his records and discussing with his family. 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) Alcohol Use: Occasionally Uses Recreational Drug Use: No Smoking Status: Former Smoker Type Used: Smokeless Tobacco 2nd Hand Smoke Exposure: No Recent Foreign Travel: No Recent Infectious Disease Expo: No Recent Hopitalizations: No Physical Abuse Screen: No Sexual Abuse: No Immunizations Up To Date Date of Influenza Vaccine: Jun 21, 2016 Past Medical History past medical history as discussed below Family Medical History Significant Family History: Hypertension Family History: Abdominal aortic aneurysm Alcoholism Arthritis Asthma Cardiovascular disease Cataracts Completed stroke Diabetes mellitus Glaucoma Headache disorder Hypertension Kidney disease Myocardial infarction Psychosocial problem Respiratory disorder Severe allergy Visual disorder Constitutional: see HPI malaise weakness EENTM: blurred vision see HPI Respiratory: see HPI dyspnea on exertion short of breath Cardiovascular: see HPINo chest pain, edemaNo Hx of Intervention, No palpitations, No syncope, No vascular heart diseas, No other Gastrointestinal: no symptoms reported see HPI Genitourinary: no symptoms reported see HPI Musculoskeletal: see HPI back pain muscle weakness neck pain Skin: no symptoms reported see HPI Psychiatric/Neurological: No Symptoms Reported See HPI Reviewed Test Results Reviewed Test Results Lab no labs were done today Physical Exam Vital Signs Vital Sign - Last 12Hours 11/05/16 11/06/16 14:10 19:16 Temp 98.1 Pulse 73 Resp 17 B/P 141/85 Pulse Ox 98 O2 Delivery Room Air O2 Flow Rate 4.00 Capillary Refill : Less Than 3 Seconds General Appearance: WD/WN Moderate Distress Eyes: Bilateral Eye EOMI, Bilateral Eye Normal Inspection, Bilateral Eye PERRL HEENT: PERRL/EOMI TMs Normal Normal ENT Inspection Pharynx Normal Neck: Non Tender Supple Other (recovering from surgery to the neck) Respiratory: Chest Non Tender No Accessory Muscle Use No Respiratory Distress Crackles Other (on BiPAP) Cardiovascular: No Edema No Gallop No JVD No Murmur Normal Peripheral Pulses Tachycardia Gastrointestinal: Normal Bowel Sounds No Organomegaly No Pulsatile Mass Non Tender Soft Back: Normal Inspection No CVA Tenderness No Vertebral Tenderness Extremity: Normal Capillary Refill Normal Inspection Normal Range of Motion Non Tender No Calf Tenderness No Pedal Edema Neurologic/Psychiatric: Alert Oriented x3 No Motor/Sensory Deficits Normal Mood/Affect Skin: Normal Color Warm/Dry Lymphatic: No Adenopathy A/P-Cardiology Admission Diagnosis Acute respiratory failure Laminectomy Hypertension Chest pain Assessment/Plan Acute respiratory failure, unknown etiology, could be fluid overload. He is postoperative day number 4, I will evaluate blood gases and chest x-ray, evaluate metabolic profile and BNP. Received a dose of Lasix, on BiPAP. Consider adding Lovenox if okay with Dr. Troncoso Headache, numbness and weakness in the upper extremity, probably secondary to the spinal stenosis, status post C2-7 laminectomy, procedure done on November 06, 2016 Chest pain nonspecific etiology, seen for episode of chest pain in October 2016 , had an exercise stress echo, able to exercise for 9 minutes on Narendra protocol , no ischemic changes. Hypertension, status post admission for hypertensive emergency early in October , currently blood pressure medication on hold, restart them once more stable. Monitor blood pressure closely. History of tobaccoism, chewing tobacco. Hyperlipidemia. Clinical Quality Measures DVT/VTE Risk/Contraindication: Risk Factor Score Per Nursin RFS Level Per Nursing on Admit: 1=Low/No VTE PPX Stroke: Date of last known well: Nov 05, 2016 Time of last known well: 12:00 DINAH JOSE MD Nov 10, 2016 09:56
[2016-11-10] MEDS: ASPIRIN E.C. 325 MG (ECOTRIN) TABLET PO SCH (10:00)
[2016-11-10] MEDS: lisINopril 20 MG (ZESTRIL) TAB PO SCH (10:00)
[2016-11-10 10:10] LABS: ABG HCO3 30 MMOL/L (23-27); ABG OXYGEN SATURATION 99 % (94-100); ABG PCO2 60 MMHG (35-45); ABG PO2 106 MMHG (79-93); ABG TCO2 31.5 MMOL/L (21.0-31.0)
[2016-11-10 10:12] LABS: MEAN PLATELET VOLUME 10.2 FL (7.4-10.4); RED BLOOD COUNT 3.62 10^6/uL (4.35-5.85); RED CELL DISTRIBUTION WIDTH 13.1 % (10.0-14.5); WHITE BLOOD COUNT 8.3 10^3/uL (4.3-11.0)
[2016-11-10 10:14] LABS: ABG PH 7.31 (7.37-7.43); ALLENS TEST YES-POS; PATIENT TEMP 99.4
--- NOTE | 2016-11-10 10:16 | Progress Note (SOAP) ---
Subjective Subjective/Events-last exam PHONE CALL FROM RN THIS MORNING - PT HAD OXYGEN SATURATION OF 40%. HIS DAUGHTER WAS AT THE BEDSIDE, STATED THAT HE HAD BEEN SLEEPING WELL THIS MORNING, NO ACUTE CONCERNS UNTIL STAFF CAME INTO THE ROOM AND STARTED TO TRY TO GET DWAYNE TO WAKE UP AND HE WOULD NOT WAKE EASILY. HE WAS GIVEN NARCAN WHILE I WAS IN THE ROOM AND DWAYNE STARTED TO COMPLAIN OF BURNING PAIN IN HIS SHOULDERS AND BACK. HE DENIES CHEST PAIN, DOES COMPLAIN OF SHORTNESS OF BREATH. DAYTIME RN NOTES THAT PT WAS QUITE SWOLLEN ON HER EVAL OF PATIENT THIS MORNING. NIGHT NURSE DID NOT REPORT FLUID OVERLOAD ON THE HAND-OFF OF THE PATIENT THIS MORNING TO DAYSHIFT NURSE. Review of Systems Cardiovascular: No: Chest Pain Musculoskeletal: : neck pain: shoulder pain Neurological: : Confusion: Weakness Objective Exam Vital Signs Date Time Temp Pulse Resp B/P Pulse Ox O2 Delivery O2 Flow Rate FiO2 11/10/16 09:07 118 11/10/16 09:00 130 14 95 50.00 11/10/16 08:45 102.0 125 14 149/70 88 Nasal Cannula 8.00 11/10/16 00:00 97.0 79 20 153/85 92 Room Air 11/09/16 21:00 Room Air 11/09/16 16:00 96.4 64 20 125/74 98 Room Air 11/09/16 11:43 98.3 85 16 133/78 93 Room Air I & O 11/10/16 07:00 Intake Total 3360 ml Output Total 1829 ml Balance 1531 ml Capillary Refill : Less Than 3 Seconds General Appearance: WD/WN Moderate Distress HEENT: PERRL/EOMI Neck: Full Range of Motion Supple Respiratory: Chest Non Tender Decreased Breath Sounds Cardiovascular: Tachycardia Gastrointestinal: normal bowel sounds non tender soft no organomegaly no pulsatile mass Extremity: Pedal Edema (UPPER EXTREMITY EDEMA ) Neurologic/Psychiatric: Other (AROUSABLE - SLEEPY SITTING UP AT THE SIDE OF THE BED) Skin: Warm/Dry Other (DRESSING ON NECK C/D/I) Lymphatic: No Adenopathy Results Lab Microbiology 11/05/16 MRSA Screen - Final, Complete MRSA not isolated Assessment/Plan Assessment/Plan Assess & Plan/Chief Complaint ACUTE RESPIRATORY FAILURE FLUID OVERLOAD SEPSIS BY CRITERIA LEFT LOWER LOBE PNEUMONIA MIGRAINE HEADACHE HYPERTENSION ANXIETY 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 CEVALLOS'S RECOMMENDATIONS. LEFT LOWER LOBE PNEUMONIA - SEPSIS BY CRITERIA - START ON HOSPITAL ACQUIRED PNEUMONIA PROTOCOL, WILL NOT START ON SEPSIS PROTOCOL DUE TO PT HAVING ACUTE FLUID OVERLOAD AND PUSHING TOO MUCH FLUID WOULD LEAD TO WORSENING ILLNESS OF PATIENT. RESPIRATORY FAILURE - IMPROVED - PT HAD OXYGEN OF 40% ON INITIAL EVAL BY AIDE - BY THE TIME I GOT TO THE ROOM, PT HAD IMPROVED - OXYGEN WAS UP TO 8 LITERS, AND WITH PERSISTENT PRODDING OF PATIENT TO TAKE A DEEP BREATH, HIS OXYGEN WAS UP TO 90%. BIPAP WAS PLACED ON PT, NARCAN GIVEN AND SYMPTOMS STABILIZED. HYPERTENSION -RESTARTED HOME MEDS. C2/3 COMPRESSION - DEFER TO DR. RICHTER - MUSCLE SPASMS -SCHEDULE VALIUM THREE TIMES DAILY - DECREASE DOSE TO 2MG. Clinical Quality Measures DVT/VTE Risk/Contraindication: Risk Factor Score Per Nursin RFS Level Per Nursing on Admit: 1=Low/No VTE PPX Stroke: Date of last known well: Nov 05, 2016 Time of last known well: 12:00 CRYSTAL BESS MD Nov 10, 2016 10:16
--- NOTE | 2016-11-10 10:27 | Diagnostic Imaging Report ---
EXAMINATION: Portable erect AP chest at 1004 hours. INDICATION: Shortness of breath. FINDINGS: The heart is mildly enlarged and the heart has increased in size since the prior exam of 11/05/2016. Also, the central pulmonary vascularity does seem somewhat more prominent than on the prior exam. There is no evidence for overt congestive failure but there may be an element of mild pulmonary congestion present. Also, a new area of pneumonia/atelectasis has developed in the left lung base. The lungs are otherwise clear. There is no significant pleural effusion identified. The mediastinum is not widened. In the interval since the prior study, the patient has undergone a surgical procedure and there are now orthopedic fixation screws and interconnecting rods overlying the cervicothoracic junction. Skin ray are also seen in this area. IMPRESSION: 1. The appearance of the chest has worsened since the prior study as cardiomegaly and mild pulmonary congestion have developed. There is also a new area of pneumonia/atelectasis involving the left lung base. 2. There are post operative changes consistent with an interval fusion of the cervicothoracic junction. 3. These results were discussed with Dr. Nory Braga. Dictated by: Dictated on workstation # [id number]
[2016-11-10] MEDS ORDERED: PHARMACY TO DOSE IV SCH (10:30)
[2016-11-10 10:41] LABS: ALANINE AMINOTRANSFERASE 44 U/L (0-55); ALBUMIN 3.4 G/DL (3.2-4.5); ANION GAP 9 MMOL/L (5-14); ASPARTATE AMINO TRANSFERASE 30 U/L (5-34); BILIRUBIN,TOTAL 0.8 MG/DL (0.1-1.0); BLOOD UREA NITROGEN 13 MG/DL (7-18); BUN/CREATININE RATIO 14; CALCIUM 8.5 MG/DL (8.5-10.1); CARBON DIOXIDE 27 MMOL/L (21-32); CHLORIDE 103 MMOL/L (98-107); CREATININE SERUM 0.93 MG/DL (0.60-1.30); GFR ESTIMATED > 60; GLUCOSE 132 MG/DL (70-105); POTASSIUM 3.9 MMOL/L (3.6-5.0); SODIUM 139 MMOL/L (135-145); TOTAL PROTEIN 5.9 G/DL (6.4-8.2)
[2016-11-10] MEDS ORDERED: VANCOMYCIN 2000 MG/NS 500 ML IVPB IV NR ×2 (11:00)
--- NOTE | 2016-11-10 11:46 | Occ Therapy Progress Note ---
Therapy Progress Note Pt. transferred to ICU. Let nursing know that OT will need new orders to continue treatment. Nursing verbalizes understanding. 1140 SUDHA ANAND OT Nov 10, 2016 11:46
[2016-11-10] MEDS ORDERED: NS IV 1000 ML 1,000 ML IV SCH ×3 (12:00→18:15)
--- NOTE | 2016-11-10 12:45 | Progress Note (SOAP) ---
Subjective Subjective/Events-last exam Transferred to ICU with SOB and fever, neck feels great Objective Exam Vital Signs Date Time Temp Pulse Resp B/P Pulse Ox O2 Delivery O2 Flow Rate FiO2 11/10/16 09:07 118 11/10/16 09:00 130 14 95 50.00 11/10/16 08:45 102.0 125 14 149/70 88 Nasal Cannula 8.00 11/10/16 00:00 97.0 79 20 153/85 92 Room Air 11/09/16 21:00 Room Air 11/09/16 16:00 96.4 64 20 125/74 98 Room Air I & O 11/10/16 07:00 Intake Total 3360 ml Output Total 1829 ml Balance 1531 ml Capillary Refill : Less Than 3 Seconds General Appearance: Mild Distress Results Lab Laboratory Tests 11/10/16 10:02: Isidoro Test YES-POS, Arterial Blood Base Excess 4.0H, Arterial Blood HCO3 30H, Arterial Blood Oxygen Saturation 99, Arterial Blood Partial Pressure CO2 60H, Arterial Blood Partial Pressure O2 106H, Arterial Blood Total CO2 31.5H, Arterial Blood pH 7.31*L, Blood Gas Inspired Oxygen 50% BIPAP, Blood Gas Patient Temperature 99.4, Blood Gas Puncture Site RT RAD, Blood Gas Ventilator Setting NO 11/10/16 10:07: Alanine Aminotransferase (ALT/SGPT) 44, Albumin 3.4, Alkaline Phosphatase 66, Anion Gap 9, Aspartate Amino Transf (AST/SGOT) 30, B-Type Natriuretic Peptide 99.5, BUN/Creatinine Ratio 14, Blood Urea Nitrogen 13, Calcium Level 8.5, Carbon Dioxide Level 27, Chloride Level 103, Creatinine 0.93, Estimat Glomerular Filtration Rate > 60, Glucose Level 132H, Hematocrit 32L, Hemoglobin 10.6L, Mean Corpuscular Hemoglobin 29, Mean Corpuscular Hemoglobin Concent 33, Mean Corpuscular Volume 90, Mean Platelet Volume 10.2, Platelet Count 239, Potassium Level 3.9, Red Blood Count 3.62L, Red Cell Distribution Width 13.1, Sodium Level 139, Total Bilirubin 0.8, Total Protein 5.9L, White Blood Count 8.3 11/10/16 11:25: Lactic Acid Level 0.84 Microbiology 11/05/16 MRSA Screen - Final, Complete MRSA not isolated Assessment/Plan Assessment/Plan Assess & Plan/Chief Complaint Cervical Spondylosis Ossification of Posterior Longitudinal ligament Cervical Stenosis - Neural Canal and neural foraminal due to osseous structures S/P C2-T2 PSF with [facility] D/W Dr Braga, will work on lungs. Clinical Quality Measures DVT/VTE Risk/Contraindication: Risk Factor Score Per Nursin RFS Level Per Nursing on Admit: 1=Low/No VTE PPX Stroke: Date of last known well: Nov 05, 2016 Time of last known well: 12:00 TONNY RICHTER MD Nov 10, 2016 12:45 pm
[2016-11-10] MEDS ORDERED: DIAZEPAM 2 MG (VALIUM) TAB PO SCH (13:00)
[2016-11-10 13:12] LABS: ABG BASE EXCESS 3.7 MMOL/L (-2.5-2.5); ABG HCO3 30 MMOL/L (23-27); ABG OXYGEN SATURATION 99 % (94-100); ABG PCO2 60 MMHG (35-45); ABG PO2 113 MMHG (79-93); ABG TCO2 31.5 MMOL/L (21.0-31.0)
[2016-11-10 13:13] LABS: ALLENS TEST YES-POS
[2016-11-10 13:14] LABS: ABG PH 7.31 (7.37-7.43)
--- NOTE | 2016-11-10 13:25 | Diagnostic Imaging Report ---
INDICATION: Dyspnea, leg swelling. COMPARISON: None. TECHNIQUE: The bilateral lower extremity deep venous system was interrogated from the common femoral vein through the popliteal vein. These images were assessed for grayscale appearance, color and spectral Doppler blood flow, compression, and augmentation. FINDINGS: There is no evidence of intraluminal filling defect. Normal compression and augmentation is noted throughout. Soft tissues are unremarkable. IMPRESSION: 1. No sonographic evidence of deep venous thrombosis in the bilateral lower extremities. Dictated by: Dictated on workstation # [id number]
[2016-11-10] MEDS: ENOXAPARIN 40 MG/0.4 ML (LOVENOX) SYR SC SCH (13:45)
[2016-11-10] MEDS: CEFEPIME INJECTION 2,000 MG in NS (IVPB) 50 ML IV SCH ×2 (14:45→21:34)
--- NOTE | 2016-11-10 15:52 | Pulmonary Progress Note ---
Subjective Subjective/Events-last exam 51yo who presented to hospital secondary JEAN, numbness in arm and found to have cervical stenosis. Pt is now s/p laminectomy that was done 11/06. Pt was transferred up to ICU today secondary to lethargy and unable to wake up. Pt was found to have acute respiratory acidosis on ABG and was placed on BiPAP. BiPAP has not improved patients condition and C02 remains about the same. I am consulted for ICU management. Son is at bedside. Unable to obtain ROS secondary to sedation. Exam Exam Vital Signs Date Time Temp Pulse Resp B/P Pulse Ox O2 Delivery O2 Flow Rate FiO2 11/10/16 14:40 88 15 97 35.00 11/10/16 13:00 82 11/10/16 12:00 84 13 132/90 96 NIV/Bilevel 40.00 11/10/16 12:00 84 12 97 40.00 11/10/16 11:00 92 14 121/78 98 NIV/Bilevel 40.00 11/10/16 10:00 105 9 132/77 97 NIV/Bilevel 40.00 11/10/16 09:07 118 11/10/16 09:00 97 NIV/Bilevel 50 11/10/16 09:00 130 14 95 50.00 11/10/16 08:45 102.0 125 14 149/70 88 Nasal Cannula 8.00 11/10/16 00:00 97.0 79 20 153/85 92 Room Air 11/09/16 21:00 Room Air 11/09/16 16:00 96.4 64 20 125/74 98 Room Air I & O 11/10/16 07:00 Intake Total 3360 ml Output Total 1829 ml Balance 1531 ml General Appearance: Moderate Distress HEENT: PERRL/EOMI Neck: Full Range of Motion Supple Respiratory: Chest Non Tender Decreased Breath Sounds Cardiovascular: Tachycardia Capillary Refill: Less Than 3 Seconds Gastrointestinal: normal bowel sounds non tender soft no organomegaly no pulsatile mass Extremity: Pedal Edema (UPPER EXTREMITY EDEMA ) Neurologic/Psychiatric: Other (AROUSABLE - SLEEPY SITTING UP AT THE SIDE OF THE BED) Skin: Warm/Dry Other (DRESSING ON NECK C/D/I) Lymphatic: No Adenopathy Results Lab Laboratory Tests 11/10/16 10:07 Assessment/Plan Assessment/Plan Cervical Spondylosis Cervical Stenosis - s/p surgery Unresponsive secondary to medications and NIDHI -Will have anesthesia reintubate -Continue to monitor in ICU S/P C2-T2 PSF with [facility] Clinical Quality Measures DVT/VTE Risk/Contraindication: Risk Factor Score Per Nursin RFS Level Per Nursing on Admit: 1=Low/No VTE PPX Stroke: Date of last known well: Nov 05, 2016 Time of last known well: 12:00 ANTONIETTA DEGROOT DO Nov 10, 2016 15:52
[2016-11-10] MEDS ORDERED: proPOfol 200 MG/20 ML (DIPRIVAN) VIAL IV ONE (15:56)
[2016-11-10] MEDS ORDERED: DEXMEDETOMIDINE PRE-MIX 100 ML IV SCH (16:15)
[2016-11-10] MEDS ORDERED: SODIUM CHLORIDE FLUSH 10 ML IV PRN (16:45)
--- NOTE | 2016-11-10 16:55 | Anesthesia-Procedure Note ---
Procedure Start/Stop Time Date of Procedure: Nov 10, 2016 Start Time: 16:15 Stop Time: 16:45 Procedures/Interventions Reason for Intubation: Impending respiratory failure RSI: Yes 100% pre-Ox, [id number]: Yes Intubation Method: orotracheal Videoscope used: Yes Grade View: 2 Medications: Propofol (200 mg), Succinylcholine (100 mg), Versed (2.5mg) Positive End Tide CO2: Yes Breath Sounds after Intubation: bilateral-equal ETT Securred @ (cm): 23 Intubated with ease: No (Patient was difficult to intubate, larynx was anterior and difficult to place tube. There was also some airway edema noted.) Intubation Complications: no complications Post Intubation Xray-done: Yes Progress Care turned over to BOW REPAIRER [employer] and RT. Arterial Line Catheter: 20G Type: Radial Location: Left Procedure: prepped, draped in sterile fashion, good wave-form was obtained, patient tolerated procedure well, no immediate complications, post procedure area cleaned, post procedure dressing applied RAMY FARRELL CRNA Nov 10, 2016 16:55
[2016-11-10] MEDS ORDERED: PROPOFOL DRIP (ICU) 100 ML IV ONE (17:09)
[2016-11-10] MEDS: LEVOFLOXACIN 750 MG/150 ML IV 150 ML IV SCH (17:46)
--- NOTE | 2016-11-10 17:53 | Diagnostic Imaging Report ---
Indication: Dyspnea, intubation. Discussion: Single portable semiupright view of the chest was obtained, comparison earlier same date. Interval intubation with endotracheal tube tip in good position projected over the midtrachea. Postoperative changes of the cervical spine are stable. New enteric tube with tip in the gastric fundus in good position. Low lung volumes with bilateral pulmonary infiltrates, stable. Stable normal heart size. No pleural fluid or pneumothorax. Impression: 1. Enteric tube and endotracheal tube in good position. 2. Bilateral pulmonary infiltrates, stable. Dictated by: Dictated on workstation # [id number]
[2016-11-10] MEDS ORDERED: NOREPINEPHRINE 4 MG in D5W 250 ML (IVPB) 250 ML IV SCH (18:00)
[2016-11-10] MEDS: PROPOFOL DRIP (ICU) 100 ML IV SCH (18:04)
[2016-11-10 18:09] LABS: ABG HCO3 29 MMOL/L (23-27); ABG OXYGEN SATURATION 100 % (94-100); ABG PCO2 53 MMHG (35-45); ABG PH 7.36 (7.37-7.43); ABG PO2 148 MMHG (79-93); ABG TCO2 30.4 MMOL/L (21.0-31.0); ALLENS TEST ART LINE; PATIENT TEMP 100.8
[2016-11-10] MEDS ORDERED: NS IV 1000 ML 1,000 ML IV ONE (18:10)
[2016-11-10] MEDS: morphine INJ 4 MG/ML 1 ML (VIAL/SYRINGE) IVP PRN (19:55)
[2016-11-10] MEDS: NEBIVOLOL 5 MG TAB (BYSTOLIC) PO SCH (21:00)
[2016-11-10] MEDS ORDERED: oxyCODONE ER 20 MG (OxyCONTIN CR) TAB PO SCH (21:00)
[2016-11-10] MEDS ORDERED: VANCOMYCIN 1500 MG/NS 500 ML IVPB IV SCH ×2 (23:00)
[2016-11-11] VITALS (25 sets, daily range): BP systolic 104–169; BP diastolic 54–111
[2016-11-11] MEDS: morphine INJ 4 MG/ML 1 ML (VIAL/SYRINGE) IVP PRN ×2 (02:34→22:36)
[2016-11-11 04:42] LABS: ABG HCO3 28 MMOL/L (23-27); ABG OXYGEN SATURATION 100 % (94-100); ABG PCO2 40 MMHG (35-45); ABG PH 7.46 (7.37-7.43); ABG PO2 129 MMHG (79-93)
[2016-11-11 04:44] LABS: ALLENS TEST ART LINE
[2016-11-11 04:45] LABS: PATIENT TEMP 98.4
[2016-11-11 04:49] LABS: MEAN PLATELET VOLUME 10.4 FL (7.4-10.4); RED BLOOD COUNT 3.01 10^6/uL (4.35-5.85); RED CELL DISTRIBUTION WIDTH 12.7 % (10.0-14.5); WHITE BLOOD COUNT 4.7 10^3/uL (4.3-11.0)
[2016-11-11] MEDS: PROPOFOL DRIP (ICU) 100 ML IV SCH (05:19)
[2016-11-11 05:22] LABS: ALANINE AMINOTRANSFERASE 32 U/L (0-55); ALBUMIN 2.6 G/DL (3.2-4.5); ANION GAP 8 MMOL/L (5-14); ASPARTATE AMINO TRANSFERASE 22 U/L (5-34); BILIRUBIN,TOTAL 0.9 MG/DL (0.1-1.0); BLOOD UREA NITROGEN 14 MG/DL (7-18); BUN/CREATININE RATIO 16; CALCIUM 7.7 MG/DL (8.5-10.1); CARBON DIOXIDE 25 MMOL/L (21-32); CHLORIDE 107 MMOL/L (98-107); CREATININE SERUM 0.86 MG/DL (0.60-1.30); GFR ESTIMATED > 60; GLUCOSE 97 MG/DL (70-105); MAGNESIUM 1.7 MG/DL (1.8-2.4); POTASSIUM 3.4 MMOL/L (3.6-5.0); SODIUM 140 MMOL/L (135-145); TOTAL PROTEIN 4.8 G/DL (6.4-8.2)
[2016-11-11] MEDS: MAGNESIUM 1 GM/100 ML IVPB 100 ML IV SCH ×3 (06:00→08:06)
[2016-11-11] MEDS: KCL 20 MEQ TAB (K-DUR) PO SCH (06:00)
[2016-11-11] MEDS: POTASSIUM CL 10MEQ/50ML IVPB 50 ML IV SCH (06:00)
[2016-11-11] MEDS: SUCRALFATE 1 GM (CARAFATE) TAB PO SCH ×4 (06:00→20:03)
[2016-11-11] MEDS ORDERED: RT-ALBUTEROL/IPRATROPIUM 3 ML (DUONEB) VIAL ONE (06:37)
[2016-11-11] MEDS: RT-ALBUTEROL/IPRATROPIUM 3 ML (DUONEB) VIAL INH SCH ×4 (06:40→20:23)
--- NOTE | 2016-11-11 06:40 | Pulmonary Progress Note ---
Subjective Subjective/Events-last exam PT is now wide awake and alert on ventilator. He appears to be doing well. He is not on any pressors. Exam Exam Vital Signs Date Time Temp Pulse Resp B/P Pulse Ox O2 Delivery O2 Flow Rate FiO2 11/11/16 06:00 73 13 123/71 99 Mechanical Ventilator 50.00 11/11/16 05:19 141/68 11/11/16 05:00 73 13 112/64 99 Mechanical Ventilator 50.00 11/11/16 04:07 80 14 99 50 11/11/16 04:00 98.4 11/11/16 04:00 79 13 117/67 99 Mechanical Ventilator 50.00 11/11/16 03:00 74 14 123/64 99 Mechanical Ventilator 50.00 11/11/16 02:03 77 14 99 50 11/11/16 02:00 80 14 111/67 98 Mechanical Ventilator 50.00 11/11/16 01:00 77 11/11/16 01:00 80 14 104/59 99 Mechanical Ventilator 50.00 11/11/16 00:25 80 14 99 50 11/11/16 00:00 99.0 11/11/16 00:00 99 Mechanical Ventilator 50 11/11/16 00:00 80 13 111/65 100 Mechanical Ventilator 50.00 11/10/16 23:00 83 13 112/67 100 Mechanical Ventilator 50.00 11/10/16 22:08 83 14 100 70 11/10/16 22:00 99.6 82 14 107/67 100 Mechanical Ventilator 50.00 11/10/16 21:00 82 13 96/52 100 Mechanical Ventilator 60.00 11/10/16 20:19 87 14 99 70 11/10/16 20:00 101.0 86 14 111/52 100 Mechanical Ventilator 60.00 11/10/16 20:00 99 Mechanical Ventilator 60 11/10/16 20:00 101.0 11/10/16 19:00 83 11/10/16 19:00 83 14 121/68 100 Mechanical Ventilator 60.00 11/10/16 18:19 82 14 100 70 11/10/16 18:04 98/60 11/10/16 18:00 84 14 95/57 100 NIV/Bilevel 40.00 11/10/16 17:01 92 14 94 50 11/10/16 17:00 87 13 77/40 98 NIV/Bilevel 40.00 11/10/16 16:41 92 15 108/78 94 Mechanical Ventilator 50.00 11/10/16 16:00 94 8 84/52 97 NIV/Bilevel 40.00 11/10/16 16:00 95 NIV/Bilevel 35 11/10/16 15:00 88 122/74 94 NIV/Bilevel 40.00 11/10/16 14:40 88 15 97 35.00 11/10/16 14:00 92 9 140/83 98 NIV/Bilevel 40.00 11/10/16 13:00 81 25 132/95 98 NIV/Bilevel 40.00 11/10/16 13:00 82 11/10/16 12:00 84 13 132/90 96 NIV/Bilevel 40.00 11/10/16 12:00 84 12 97 40.00 11/10/16 12:00 97 NIV/Bilevel 40 11/10/16 11:00 92 14 121/78 98 NIV/Bilevel 40.00 11/10/16 10:00 105 9 132/77 97 NIV/Bilevel 40.00 11/10/16 09:07 118 11/10/16 09:00 97 NIV/Bilevel 50 11/10/16 09:00 130 14 95 50.00 11/10/16 08:45 102.0 125 14 149/70 88 Nasal Cannula 8.00 I & O 11/11/16 07:00 Intake Total 0 ml Output Total 2775 ml Balance -2775 ml General Appearance: No Apparent Distress Anxious HEENT: PERRL/EOMI Neck: Full Range of Motion Supple Respiratory: Chest Non Tender Decreased Breath Sounds Cardiovascular: Tachycardia Capillary Refill: Less Than 3 Seconds Gastrointestinal: normal bowel sounds non tender soft no organomegaly no pulsatile mass Extremity: Pedal Edema (UPPER EXTREMITY EDEMA ) Neurologic/Psychiatric: Other (AROUSABLE - SLEEPY SITTING UP AT THE SIDE OF THE BED) Skin: Warm/Dry Other (DRESSING ON NECK C/D/I) Lymphatic: No Adenopathy Results Lab Laboratory Tests 11/10/16 10:07 11/11/16 04:35 Assessment/Plan Assessment/Plan Cervical Spondylosis Cervical Stenosis - s/p surgery Unresponsive secondary to medications and NIDHI -Pt is wide awake on ventilator. He is motioning that he wants ET tube out. Weaning parameters are good. -Will proceed with extubation now that pt is wide awake and alert. Hypotension -resolved with IVF Electrolyte replacement -replace and recheck S/P C2-T2 PSF with [facility] Clinical Quality Measures DVT/VTE Risk/Contraindication: Risk Factor Score Per Nursin RFS Level Per Nursing on Admit: 1=Low/No VTE PPX Stroke: Date of last known well: Nov 05, 2016 Time of last known well: 12:00 ANTONIETTA DEGROOT DO Nov 11, 2016 06:40
[2016-11-11] MEDS ORDERED: DIAZEPAM 2 MG (VALIUM) TAB PO PRN (06:45)
[2016-11-11] MEDS: NS IV 1000 ML 1,000 ML IV SCH ×3 (06:47→16:00)
[2016-11-11] MEDS ORDERED: PANTOPRAZOLE 40 MG/10 ML (PROTONIX) VIAL IV SCH (07:00)
[2016-11-11] MEDS: MULTIVIT W/MINERALS TAB (THERAGRAN M) PO SCH (07:00)
[2016-11-11] MEDS ORDERED: NS IV NR (07:05)
[2016-11-11] MEDS ORDERED: POTASSIUM PHOSPHATE IV NR (07:05)
--- NOTE | 2016-11-11 07:20 | Progress Note (SOAP) ---
Subjective Subjective/Events-last exam PT REPORTS THAT HE IS FEELING FATIGUED, SORE THROAT, BUT DOES FEEL BETTER, FEELS LIKE HE IS BREATHING EASIER. HE HAS SOME NECK PAIN, BUT IT IS NOT OVERWHELMING PAIN LIKE EARLIER Review of Systems General: Fatigue Malaise HEENT: No Head Aches Pulmonary: DyspneaNo Cough Cardiovascular: No: Chest Pain Gastrointestinal: No: Abdominal Pain, Nausea Musculoskeletal: : neck pain Neurological: : WeaknessNo: Confusion Objective Exam Vital Signs Date Time Temp Pulse Resp B/P Pulse Ox O2 Delivery O2 Flow Rate FiO2 11/11/16 06:30 96 14 157/86 98 Nasal Cannula 4.00 11/11/16 06:00 73 13 123/71 99 Mechanical Ventilator 50.00 11/11/16 05:19 141/68 11/11/16 05:00 73 13 112/64 99 Mechanical Ventilator 50.00 11/11/16 04:07 80 14 99 50 11/11/16 04:00 98.4 11/11/16 04:00 79 13 117/67 99 Mechanical Ventilator 50.00 11/11/16 03:00 74 14 123/64 99 Mechanical Ventilator 50.00 11/11/16 02:03 77 14 99 50 11/11/16 02:00 80 14 111/67 98 Mechanical Ventilator 50.00 11/11/16 01:00 77 11/11/16 01:00 80 14 104/59 99 Mechanical Ventilator 50.00 11/11/16 00:25 80 14 99 50 11/11/16 00:00 99.0 11/11/16 00:00 99 Mechanical Ventilator 50 11/11/16 00:00 80 13 111/65 100 Mechanical Ventilator 50.00 11/10/16 23:00 83 13 112/67 100 Mechanical Ventilator 50.00 11/10/16 22:08 83 14 100 70 11/10/16 22:00 99.6 82 14 107/67 100 Mechanical Ventilator 50.00 11/10/16 21:00 82 13 96/52 100 Mechanical Ventilator 60.00 11/10/16 20:19 87 14 99 70 11/10/16 20:00 101.0 86 14 111/52 100 Mechanical Ventilator 60.00 11/10/16 20:00 99 Mechanical Ventilator 60 11/10/16 20:00 101.0 11/10/16 19:00 83 11/10/16 19:00 83 14 121/68 100 Mechanical Ventilator 60.00 11/10/16 18:19 82 14 100 70 11/10/16 18:04 98/60 11/10/16 18:00 84 14 95/57 100 NIV/Bilevel 40.00 11/10/16 17:01 92 14 94 50 11/10/16 17:00 87 13 77/40 98 NIV/Bilevel 40.00 11/10/16 16:41 92 15 108/78 94 Mechanical Ventilator 50.00 11/10/16 16:00 94 8 84/52 97 NIV/Bilevel 40.00 11/10/16 16:00 95 NIV/Bilevel 35 11/10/16 15:00 88 122/74 94 NIV/Bilevel 40.00 11/10/16 14:40 88 15 97 35.00 11/10/16 14:00 92 9 140/83 98 NIV/Bilevel 40.00 11/10/16 13:00 81 25 132/95 98 NIV/Bilevel 40.00 11/10/16 13:00 82 11/10/16 12:00 84 13 132/90 96 NIV/Bilevel 40.00 11/10/16 12:00 84 12 97 40.00 11/10/16 12:00 97 NIV/Bilevel 40 11/10/16 11:00 92 14 121/78 98 NIV/Bilevel 40.00 11/10/16 10:00 105 9 132/77 97 NIV/Bilevel 40.00 11/10/16 09:07 118 11/10/16 09:00 97 NIV/Bilevel 50 11/10/16 09:00 130 14 95 50.00 11/10/16 08:45 102.0 125 14 149/70 88 Nasal Cannula 8.00 I & O 11/11/16 07:00 Intake Total 0 ml Output Total 2775 ml Balance -2775 ml Capillary Refill : Less Than 3 Seconds General Appearance: No Apparent Distress WD/WN HEENT: PERRL/EOMI Pharynx Normal Respiratory: Chest Non Tender Decreased Breath Sounds Cardiovascular: Regular Rate, Rhythm Gastrointestinal: normal bowel sounds non tender soft no organomegaly no pulsatile mass Extremity: No Pedal Edema Neurologic/Psychiatric: Alert Oriented x3 Normal Mood/Affect Lymphatic: No Adenopathy Results Lab Laboratory Tests 11/10/16 10:02: Isidoro Test YES-POS, Arterial Blood Base Excess 4.0H, Arterial Blood HCO3 30H, Arterial Blood Oxygen Saturation 99, Arterial Blood Partial Pressure CO2 60H, Arterial Blood Partial Pressure O2 106H, Arterial Blood Total CO2 31.5H, Arterial Blood pH 7.31*L, Blood Gas Inspired Oxygen 50% BIPAP, Blood Gas Patient Temperature 99.4, Blood Gas Puncture Site RT RAD, Blood Gas Ventilator Setting NO 11/10/16 10:07: Alanine Aminotransferase (ALT/SGPT) 44, Albumin 3.4, Alkaline Phosphatase 66, Anion Gap 9, Aspartate Amino Transf (AST/SGOT) 30, B-Type Natriuretic Peptide 99.5, BUN/Creatinine Ratio 14, Blood Urea Nitrogen 13, Calcium Level 8.5, Carbon Dioxide Level 27, Chloride Level 103, Creatinine 0.93, Estimat Glomerular Filtration Rate > 60, Glucose Level 132H, Hematocrit 32L, Hemoglobin 10.6L, Mean Corpuscular Hemoglobin 29, Mean Corpuscular Hemoglobin Concent 33, Mean Corpuscular Volume 90, Mean Platelet Volume 10.2, Platelet Count 239, Potassium Level 3.9, Red Blood Count 3.62L, Red Cell Distribution Width 13.1, Sodium Level 139, Total Bilirubin 0.8, Total Protein 5.9L, White Blood Count 8.3 11/10/16 11:25: Lactic Acid Level 0.84 11/10/16 12:45: Isidoro Test YES-POS, Arterial Blood Base Excess 3.7H, Arterial Blood HCO3 30H, Arterial Blood Oxygen Saturation 99, Arterial Blood Partial Pressure CO2 60H, Arterial Blood Partial Pressure O2 113H, Arterial Blood Total CO2 31.5H, Arterial Blood pH 7.31*L, Blood Gas Inspired Oxygen 40% BIPAP, Blood Gas Patient Temperature 98.0, Blood Gas Puncture Site LT RADIAL, Blood Gas Ventilator Setting NO 11/10/16 18:01: Isidoro Test ART LINE, Arterial Blood Base Excess 4.0H, Arterial Blood HCO3 29H, Arterial Blood Oxygen Saturation 100, Arterial Blood Partial Pressure CO2 53H, Arterial Blood Partial Pressure O2 148H, Arterial Blood Total CO2 30.4, Arterial Blood pH 7.36L, Blood Gas Inspired Oxygen 70%, Blood Gas Patient Temperature 100.8, Blood Gas Puncture Site ARTLINE, Blood Gas Ventilator Setting YES, Glucometer 123H 11/11/16 04:35: Isidoro Test ART LINE, Arterial Blood Base Excess 4.0H, Arterial Blood HCO3 28H, Arterial Blood Oxygen Saturation 100, Arterial Blood Partial Pressure CO2 40, Arterial Blood Partial Pressure O2 129H, Arterial Blood Total CO2 29.0, Arterial Blood pH 7.46H, Blood Gas Inspired Oxygen 50%, Blood Gas Patient Temperature 98.4, Blood Gas Puncture Site SHIRA, Blood Gas Ventilator Setting YES, Alanine Aminotransferase (ALT/SGPT) 32, Albumin 2.6L, Alkaline Phosphatase 46, Anion Gap 8, Aspartate Amino Transf (AST/SGOT) 22, BUN/Creatinine Ratio 16, Blood Urea Nitrogen 14, Calcium Level 7.7L, Carbon Dioxide Level 25, Chloride Level 107, Creatinine 0.86, Estimat Glomerular Filtration Rate > 60, Glucose Level 97, Hematocrit 27L, Hemoglobin 8.8L, Magnesium Level 1.7L, Mean Corpuscular Hemoglobin 29, Mean Corpuscular Hemoglobin Concent 33, Mean Corpuscular Volume 89, Mean Platelet Volume 10.4, Phosphorus Level 1.0*L, Platelet Count 203, Potassium Level 3.4L, Red Blood Count 3.01L, Red Cell Distribution Width 12.7, Sodium Level 140, Total Bilirubin 0.9, Total Protein 4.8L, White Blood Count 4.7 Microbiology 11/05/16 MRSA Screen - Final, Complete MRSA not isolated Assessment/Plan Assessment/Plan Assess & Plan/Chief Complaint ACUTE RESPIRATORY FAILURE FLUID OVERLOAD SEPSIS BY CRITERIA LEFT LOWER LOBE PNEUMONIA MIGRAINE HEADACHE HYPERTENSION ANXIETY 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 CEVALLOS'S RECOMMENDATIONS. LEFT LOWER LOBE PNEUMONIA - SEPSIS BY CRITERIA - STARTED ON HOSPITAL ACQUIRED PNEUMONIA PROTOCOL, WILL NOT START ON SEPSIS PROTOCOL DUE TO PT HAVING ACUTE FLUID OVERLOAD AND PUSHING TOO MUCH FLUID WOULD LEAD TO WORSENING ILLNESS OF PATIENT. RESPIRATORY FAILURE - PT DETERIORATED YESTERDAY IN THE ICU - WAS PLACED ON VENT - EXTUBATED THIS MORNING AT [address] DEGROOT. HYPERTENSION -RESTARTED HOME MEDS. C2/3 COMPRESSION - DEFER TO DR. RICHTER - MUSCLE SPASMS -SCHEDULE VALIUM THREE TIMES DAILY - DECREASE DOSE TO 2MG WHEN TAKING PO AND PRN PAIN MEDICATION DOSE DECREASED WELL BY DR. DEGROOT. HYPOPHOSPHATEMIA, HYPOMAGNESEMIA - REPLACEMENT BY PROTOCOL. ANEMIA - MONITOR H AND H. Clinical Quality Measures DVT/VTE Risk/Contraindication: Risk Factor Score Per Nursin RFS Level Per Nursing on Admit: 1=Low/No VTE PPX Stroke: Date of last known well: Nov 05, 2016 Time of last known well: 12:00 CRYSTAL BESS MD Nov 11, 2016 07:20
[2016-11-11] MEDS ORDERED: SALIVA STIMULANT MOUTH SPRAY (BIOTENE) 1.5 OZ MM PRN (07:45)
--- NOTE | 2016-11-11 08:22 | Cardiology Progress Note ---
Subjective Subjective/Events-last exam patient is laying down in bed, extubated this morning. Feeling better. Awake, responding appropriately. Denied any chest pain. Review of Systems General: No Chills, No Night Sweats, No Fatigue, No Malaise, No Appetite, No Other HEENT: No Head Aches, No Visual Changes, No Eye Pain, No Ear Pain, No Dysphasia , No Sinus Congestion, No Post Nasal Drip, No Sore Throat, No Other Pulmonary: DyspneaNo Cough, No Pleuritic Chest Pain, No Other Cardiovascular: No: Chest Pain, Edema, Lt Headedness, Orthopnea, Other, Palpitations, Paroxysmal Noc. Dyspnea Objective-Cardiology Exam Last Set of Vital Signs Vital Signs 11/11/16 11/11/16 11/11/16 04:00 04:07 06:30 Temp 98.4 Pulse 96 Resp 14 B/P 157/86 Pulse Ox 98 O2 Delivery Nasal Cannula O2 Flow Rate 4.00 FiO2 50 Capillary Refill : Less Than 3 Seconds I&O Intake and Output 11/11/16 00:00 Intake Total 1100 ml Output Total 3000 ml Balance -1900 ml Intake Oral 100 ml IV Total 1000 ml Output Urine Total 2875 ml Drainage Total 125 ml General: Alert, Oriented X3, Cooperative, Mild Distress HEENT: Atraumatic, PERRLA Neck: Supple, No JVD, No Thyromegaly Lungs: Clear to Auscultation, Normal Air Movement Heart: Regular Rate, Normal S1, Normal S2, No Murmurs Abdomen: Normal Bowel Sounds, Soft, No Tenderness, No Hepatosplenomegaly, No Masses Extremities: No Clubbing, No Cyanosis, No Edema, Normal Pulses, No Tenderness/ Swelling Skin: No Rashes, No Breakdown, No Significant Lesion Neuro: Normal Gait, Normal Speech, Strength at 5/5 X4 Ext, Normal Tone, Sensation Intact Psych/Mental Status: Mental Status NL, Mood NL Results Lab Laboratory Tests 11/10/16 10:07 11/11/16 04:35 A/P-Cardiology Admission Diagnosis Acute respiratory failure Laminectomy Hypertension Chest pain Assessment/Plan Status post acute respiratory failure, intubated last night, extubated at this time, probably secondary to CO2 retention and pain medication. Managed by Dr. Guerrero. Feeling better at this time. Headache, numbness and weakness in the upper extremity, probably secondary to the spinal stenosis, status post C2-7 laminectomy, procedure done on November 06, 2016 Chest pain nonspecific etiology, seen for episode of chest pain in October 2016 , had an exercise stress echo, able to exercise for 9 minutes on Narendra protocol , no ischemic changes. Hypertension, status post admission for hypertensive emergency early in October , currently blood pressure medication on hold, restart them once more stable. Monitor blood pressure closely. History of tobaccoism, chewing tobacco. Hyperlipidemia. Clinical Quality Measures DVT/VTE Risk/Contraindication: Risk Factor Score Per Nursin RFS Level Per Nursing on Admit: 1=Low/No VTE PPX Stroke: Date of last known well: Nov 05, 2016 Time of last known well: 12:00 DINAH JOSE MD Nov 11, 2016 08:22
--- NOTE | 2016-11-11 09:03 | Diagnostic Imaging Report ---
EXAMINATION: Portable erect AP chest at 0517 hours. INDICATION: Respiratory distress. FINDINGS: This exam is less than optimal due to the shallow inspiration. Allowing for this technical factor, the overall appearance of the chest has not changed significantly since 11/10/2016. The right midlung may be somewhat better aerated. There is still some residual alveolar/interstitial infiltrate involving each lung base. The upper lungs are relatively clear. The heart is stable in size when compared to the prior exam. The mediastinum is not widened. The osseous structures are intact. The orthopedic hardware overlying the cervicothoracic junction, skin ray, ET tube, and NG line noted previously are again evident and no different. IMPRESSION: The right midlung is somewhat better aerated than on the prior study. There is still involvement of both lung bases by atelectasis/infiltrate, however. A followup study would be recommended for continued evaluation. Dictated by: Dictated on workstation # [id number]
--- NOTE | 2016-11-11 09:18 | Diagnostic Imaging Report ---
Indication: PICC line placement. Discussion: Single portable upright view of the chest was obtained, comparison earlier today. New right upper extremity PICC line with tip in the distal SVC in good position. Normal heart size. Postoperative changes are again noted within the cervical spine. Bilateral pulmonary infiltrates are again noted, atelectasis versus pneumonia. No pleural fluid or pneumothorax. Impression: 1. New right upper extremity PICC line with tip in distal SVC in good position. 2. Bilateral pulmonary infiltrates. Dictated by: Dictated on workstation # [id number]
[2016-11-11] MEDS ORDERED: TROUGH ORDER-PHARMACY XX NR (10:00)
[2016-11-11] MEDS: ASPIRIN E.C. 325 MG (ECOTRIN) TABLET PO SCH (10:04)
[2016-11-11] MEDS: lisINopril 20 MG (ZESTRIL) TAB PO SCH (10:04)
[2016-11-11] MEDS: CHLORHEXIDINE 0.12% SOLN 15 ML (PERIDEX) UDC PO SCH ×2 (10:05→20:03)
[2016-11-11] MEDS: LEVOFLOXACIN 750 MG/150 ML IV 150 ML IV SCH (10:05)
[2016-11-11] MEDS: CEFEPIME INJECTION 2,000 MG in NS (IVPB) 50 ML IV SCH ×2 (10:05→20:03)
[2016-11-11] MEDS: ENOXAPARIN 40 MG/0.4 ML (LOVENOX) SYR SC SCH (10:05)
--- NOTE | 2016-11-11 11:04 | Physical Therapy Evaluation ---
PT Evaluation-General Medical Diagnosis Admission Date Nov 05, 2016 at 15:59 Medical Diagnosis: s/p C2-T2 Psf with laminectomy Onset Date: Nov 06, 2016 Therapy Diagnosis Therapy Diagnosis: general debility Height/Weight Height (Feet): 5 Height (Inches): 9.00 Weight (Pounds): 240 Weight (Ounces): 0.0 Precautions Precautions/Isolations: Standard Precautions Weight Bear Status Weight Bearing Restriction: Full Weight Bearing Location Restriction: LE Bilateral Referral Physician: Jose Elias Moulton Reason for Referral: Evaluation/Treatment Medical History Pertinent Medical History: GERD, HTN Additional Medical History resp failure Current History transfer to ICU due to resp. failure and intubated; currently off vent, alert Reviewed History: Yes Social History Home: Single Level Current Living Status: Other Family (son) Entry Into Home: Stairs Without Railing PT Steps Into Home: 2 Prior/Core FIM Prior Level of Function Functional [place]eller Measure 0=Not Assessed/NA 4=Minimal Assistance 1=Total Assistance 5=Supervision or Setup 2=Maximal Assistance 6=Modified Teller 3=Moderate Assistance 7=Complete Teller Bed Mobility: 7 Transfers (B,C,W/C) (FIM): 7 Gait: 7 did ambulate with FWW PLOF per patient and family PT Evaluation-Current Subjective Patient is agreeable to participate with PT. Pain Numeric Pain Scale: 10-Worst Possible Pain Location: Posterior Location Body Site: Neck Pain Description: Pressure, Acute Pt/Family Goals return to home BHUPENDRA Objective Patient Orientation: Normal For Age Problem Solving: Good Attachments: Oxygen, Drains, Romo Catheter PIC line ROM/Strength ROM Lower Extremities bilateral LE WFL Strenght Lower Extremities bilateral LE WFL Integumentary/Posture Integumentary refer to nursing notes Bowel Incontinence: No Bladder Incontinence: No Posture WNL Neuromuscular (Tone, Coordination, Reflexes) grossly intact Sensory Vision: Functional Hearing: Functional Sensation Right Lower Extremit: Intact Sensation Left Lower Extremity: Intact Transfers Functional [place]eller Measure 0=Not Assessed/NA 4=Minimal Assistance 1=Total Assistance 5=Supervision or Setup 2=Maximal Assistance 6=Modified Teller 3=Moderate Assistance 7=Complete Teller Transfers (B, C, W/C) (FIM): 4 Scootin Rollin Supine to/from Sit: 4 Sit to/from Stand: 5 Gait Mode of Locomotion: Walk Anticipated Mode of Locomotion: Walk Gait (FIM): 1 Distance (FIM): 1=up to 49 ft Distance: 30' Gait Level of Assist: 4 Gait Persons Needed: 1 Gait Assistive Device: FWW Comments/Gait Description CGA for safety Balance Sitting Static: Normal Sitting Dynamic: Normal Standing Static: Normal Standing Dynamic: Normal Assessment/Needs 51 y.o. male, transfer to ICU secondary to resp. failure, will benefit from skilled PT to address functional mobility to ensure safe return to home with family at maximum LOF. Patient desires to return to home this week. Rehab Potential: Good PT Finished Cigar Maker Goals Finished Cigar Maker Goals PT Half-Way Goals Time Frame: Nov 17, 2016 Transfers (B,C,W/C) (FIM): 6 Gait (FIM): 6 Distance: 150' Gait Assistive Device: FWW PT Plan Treatment/Plan Treatment Plan: Continue Plan of Care Treatment Plan: Bed Mobility, Education, Functional Activity Oseas, Functional Strength, Gait, Safety, Therapeutic Exercise, Transfers Treatment Duration: Nov 17, 2016 # of days/week 5-6 Visits Per Week: 5-6 Minutes/Day (M-F): 15-30 Minutes/Day (Sat/[place]): 15-30 Pt/Family Agrees w/Plan: Yes Time/GCodes Time In: 1020 Time Out: 1035 Total Billed Treatment Time: 15 Total Billed Treatment 1 visit EVLow 15 min ANABELL FLEMING PT Nov 11, 2016 11:04
[2016-11-11] MEDS: VANCOMYCIN 2000 MG/NS 500 ML IVPB IV SCH ×4 (13:44→22:36)
--- NOTE | 2016-11-11 14:04 | Progress Note-Standard ---
Standard Progress Note Progress Notes/Assess & Plan Progress/Assessment & Plan Up in chair, breathing well No complaints from spine perspective Imp: Post op Pneumonia Cervical Stenosis/Spondylosis Myleopathy Defer to Dr Braga, stable from spine perspective TONNY RICHTER MD Nov 11, 2016 2:04 pm
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
[2016-11-11 18:52] LABS: ALANINE AMINOTRANSFERASE 37 U/L (0-55); ALBUMIN 2.6 G/DL (3.2-4.5); ANION GAP 8 MMOL/L (5-14); ASPARTATE AMINO TRANSFERASE 26 U/L (5-34); BILIRUBIN,TOTAL 0.8 MG/DL (0.1-1.0); BLOOD UREA NITROGEN 9 MG/DL (7-18); BUN/CREATININE RATIO 13; CALCIUM 7.3 MG/DL (8.5-10.1); CARBON DIOXIDE 24 MMOL/L (21-32); CHLORIDE 111 MMOL/L (98-107); CREATININE SERUM 0.67 MG/DL (0.60-1.30); GFR ESTIMATED > 60; GLUCOSE 90 MG/DL (70-105); MAGNESIUM 1.8 MG/DL (1.8-2.4); POTASSIUM 3.6 MMOL/L (3.6-5.0); SODIUM 143 MMOL/L (135-145); TOTAL PROTEIN 4.9 G/DL (6.4-8.2)
[2016-11-11] MEDS: NEBIVOLOL 5 MG TAB (BYSTOLIC) PO SCH (20:03)
[2016-11-12] VITALS (12 sets, daily range): BP systolic 129–176; BP diastolic 68–106
[2016-11-12] MEDS: NS IV 1000 ML 1,000 ML IV SCH (01:29)
[2016-11-12] MEDS: morphine INJ 4 MG/ML 1 ML (VIAL/SYRINGE) IVP PRN (02:40)
[2016-11-12] MEDS ORDERED: POLYETHYLENE GLYCOL 17 GM (MIRALAX) PACK PO PRN ×2 (04:15→04:30)
[2016-11-12] MEDS ORDERED: POLYETHYLENE GLYCOL 17 GM (MIRALAX) PACK PO ONE (04:30)
[2016-11-12 04:58] LABS: MEAN PLATELET VOLUME 10.5 FL (7.4-10.4); RED BLOOD COUNT 3.32 10^6/uL (4.35-5.85); RED CELL DISTRIBUTION WIDTH 12.5 % (10.0-14.5); WHITE BLOOD COUNT 6.1 10^3/uL (4.3-11.0)
[2016-11-12 05:32] LABS: ALANINE AMINOTRANSFERASE 53 U/L (0-55); ALBUMIN 2.9 G/DL (3.2-4.5); ANION GAP 9 MMOL/L (5-14); ASPARTATE AMINO TRANSFERASE 42 U/L (5-34); BILIRUBIN,TOTAL 0.9 MG/DL (0.1-1.0); BLOOD UREA NITROGEN 10 MG/DL (7-18); BUN/CREATININE RATIO 14; CALCIUM 8.1 MG/DL (8.5-10.1); CARBON DIOXIDE 25 MMOL/L (21-32); CHLORIDE 108 MMOL/L (98-107); CREATININE SERUM 0.71 MG/DL (0.60-1.30); GFR ESTIMATED > 60; GLUCOSE 112 MG/DL (70-105); PHOSPHORUS 1.9 MG/DL (2.3-4.7); POTASSIUM 3.8 MMOL/L (3.6-5.0); SODIUM 142 MMOL/L (135-145); TOTAL PROTEIN 5.4 G/DL (6.4-8.2)
[2016-11-12] MEDS: KCL 20 MEQ TAB (K-DUR) PO SCH (05:57)
[2016-11-12] MEDS: MAGNESIUM 1 GM/100 ML IVPB 100 ML IV SCH (05:57)
[2016-11-12] MEDS: POTASSIUM CL 10MEQ/50ML IVPB 50 ML IV SCH (05:57)
[2016-11-12] MEDS: PANTOPRAZOLE 40 MG (PROTONIX) TAB PO SCH (06:13)
[2016-11-12] MEDS: SUCRALFATE 1 GM (CARAFATE) TAB PO SCH ×4 (06:13→21:05)
[2016-11-12] MEDS: MULTIVIT W/MINERALS TAB (THERAGRAN M) PO SCH (06:13)
[2016-11-12] MEDS: oxyCODONE/APAP 7.5-325 MG (PERCOCET 7.5) TABLET PO PRN (06:14)
[2016-11-12] MEDS ORDERED: POTASSIUM PHOSPHATE INJ 30 MM in NS (IVPB) 250 ML IV ONE (06:30)
--- NOTE | 2016-11-12 06:30 | Pulmonary Progress Note ---
Subjective Subjective/Events-last exam Pt is doing well off vent. No complications noted. Exam Exam Vital Signs Date Time Temp Pulse Resp B/P Pulse Ox O2 Delivery O2 Flow Rate FiO2 11/12/16 06:00 75 21 143/97 98 Nasal Cannula 2.00 11/12/16 05:00 78 25 149/93 97 Nasal Cannula 2.00 11/12/16 04:11 98 Nasal Cannula 2.00 11/12/16 04:00 73 15 146/92 97 Nasal Cannula 2.00 11/12/16 03:00 79 23 144/96 98 Nasal Cannula 2.00 11/12/16 02:00 70 17 152/100 97 Nasal Cannula 2.00 11/12/16 01:00 78 11/12/16 01:00 78 13 156/106 97 Nasal Cannula 2.00 11/12/16 00:00 98.3 80 17 148/95 99 Nasal Cannula 2.00 11/12/16 00:00 99 Nasal Cannula 2.00 11/11/16 23:00 82 12 128/69 96 Nasal Cannula 2.00 11/11/16 22:00 85 17 169/96 97 Nasal Cannula 2.00 11/11/16 21:00 85 16 159/111 96 Nasal Cannula 2.00 11/11/16 20:23 97 2.00 11/11/16 20:00 80 16 152/94 98 Nasal Cannula 2.00 11/11/16 19:45 100 Nasal Cannula 2.00 11/11/16 19:00 77 11/11/16 19:00 97.9 75 15 145/82 98 Nasal Cannula 2.00 11/11/16 18:00 77 16 160/89 98 Nasal Cannula 4.00 11/11/16 17:00 88 22 156/92 98 Nasal Cannula 4.00 11/11/16 16:00 81 16 149/94 98 Nasal Cannula 4.00 11/11/16 16:00 97 Nasal Cannula 4.00 11/11/16 16:00 98.0 Nasal Cannula 4.00 11/11/16 15:00 75 14 150/100 99 Nasal Cannula 4.00 11/11/16 14:00 83 13 155/87 98 Nasal Cannula 4.00 11/11/16 13:00 90 11/11/16 13:00 75 13 166/ 99 Nasal Cannula 4.00 11/11/16 12:00 97 Nasal Cannula 4.00 11/11/16 12:00 97.6 Nasal Cannula 4.00 11/11/16 12:00 89 158/90 97 Nasal Cannula 4.00 11/11/16 11:19 98 2.00 11/11/16 10:13 2.00 11/11/16 10:00 92 27 98 Nasal Cannula 4.00 11/11/16 09:00 87 21 96 Nasal Cannula 4.00 11/11/16 08:00 91 13 150/82 97 Nasal Cannula 4.00 11/11/16 08:00 98.4 11/11/16 08:00 97 Nasal Cannula 4.00 11/11/16 07:00 96 11/11/16 07:00 99 15 151/83 96 Nasal Cannula 4.00 11/11/16 06:30 96 14 157/86 98 Nasal Cannula 4.00 I & O 11/12/16 07:00 Intake Total 1970 ml Output Total 3923 ml Balance -1953 ml General Appearance: No Apparent Distress Anxious HEENT: PERRL/EOMI Neck: Full Range of Motion Supple Respiratory: Chest Non Tender Decreased Breath Sounds Cardiovascular: Tachycardia Capillary Refill: Less Than 3 Seconds Gastrointestinal: normal bowel sounds non tender soft no organomegaly no pulsatile mass Extremity: Pedal Edema (UPPER EXTREMITY EDEMA ) Neurologic/Psychiatric: Alert Oriented x3 Other (AROUSABLE - SLEEPY SITTING UP AT THE SIDE OF THE BED) Skin: Warm/Dry Other (DRESSING ON NECK C/D/I) Lymphatic: No Adenopathy Results Lab Laboratory Tests 11/10/16 10:07 11/11/16 04:35 11/11/16 18:30 11/12/16 04:30 Assessment/Plan Assessment/Plan Cervical Spondylosis Cervical Stenosis - s/p surgery -Pain control NIDHI -Home CPAP Hypoxia with pulmonary edema and atelectasis -IS -titrate oxygen to D/C -Lasix 40mg IV X 1 hypophos -replace Transfer to floor Clinical Quality Measures DVT/VTE Risk/Contraindication: Risk Factor Score Per Nursin RFS Level Per Nursing on Admit: 1=Low/No VTE PPX Stroke: Date of last known well: Nov 05, 2016 Time of last known well: 12:00 ANTONIETTA DEGROOT DO Nov 12, 2016 06:30
[2016-11-12] MEDS ORDERED: FUROSEMIDE 40 MG/4 ML INJ (LASIX) ONE (06:39)
[2016-11-12] MEDS ORDERED: FUROSEMIDE 40 MG/4 ML INJ (LASIX) IVP ONE (06:45)
[2016-11-12] MEDS: RT-ALBUTEROL/IPRATROPIUM 3 ML (DUONEB) VIAL INH SCH ×4 (06:51→18:56)
--- NOTE | 2016-11-12 07:24 | Progress Note (SOAP) ---
Subjective Subjective/Events-last exam Pt states that he is doing okay. No complaints as far as spine is concerned. Objective Exam Vital Signs Date Time Temp Pulse Resp B/P Pulse Ox O2 Delivery O2 Flow Rate FiO2 11/12/16 06:52 98 2.00 11/12/16 06:00 75 21 143/97 98 Nasal Cannula 2.00 11/12/16 05:00 78 25 149/93 97 Nasal Cannula 2.00 11/12/16 04:11 98 Nasal Cannula 2.00 11/12/16 04:00 73 15 146/92 97 Nasal Cannula 2.00 11/12/16 03:00 79 23 144/96 98 Nasal Cannula 2.00 11/12/16 02:00 70 17 152/100 97 Nasal Cannula 2.00 11/12/16 01:00 78 11/12/16 01:00 78 13 156/106 97 Nasal Cannula 2.00 11/12/16 00:00 98.3 80 17 148/95 99 Nasal Cannula 2.00 11/12/16 00:00 99 Nasal Cannula 2.00 11/11/16 23:00 82 12 128/69 96 Nasal Cannula 2.00 11/11/16 22:00 85 17 169/96 97 Nasal Cannula 2.00 11/11/16 21:00 85 16 159/111 96 Nasal Cannula 2.00 11/11/16 20:23 97 2.00 11/11/16 20:00 80 16 152/94 98 Nasal Cannula 2.00 11/11/16 19:45 100 Nasal Cannula 2.00 11/11/16 19:00 77 11/11/16 19:00 97.9 75 15 145/82 98 Nasal Cannula 2.00 11/11/16 18:00 77 16 160/89 98 Nasal Cannula 4.00 11/11/16 17:00 88 22 156/92 98 Nasal Cannula 4.00 11/11/16 16:00 81 16 149/94 98 Nasal Cannula 4.00 11/11/16 16:00 97 Nasal Cannula 4.00 11/11/16 16:00 98.0 Nasal Cannula 4.00 11/11/16 15:00 75 14 150/100 99 Nasal Cannula 4.00 11/11/16 14:00 83 13 155/87 98 Nasal Cannula 4.00 11/11/16 13:00 90 11/11/16 13:00 75 13 166/ 99 Nasal Cannula 4.00 11/11/16 12:00 97 Nasal Cannula 4.00 11/11/16 12:00 97.6 Nasal Cannula 4.00 11/11/16 12:00 89 158/90 97 Nasal Cannula 4.00 11/11/16 11:19 98 2.00 11/11/16 10:13 2.00 11/11/16 10:00 92 27 98 Nasal Cannula 4.00 11/11/16 09:00 87 21 96 Nasal Cannula 4.00 11/11/16 08:00 91 13 150/82 97 Nasal Cannula 4.00 11/11/16 08:00 98.4 11/11/16 08:00 97 Nasal Cannula 4.00 I & O 11/12/16 06:59 Intake Total 2595 ml Output Total 3923 ml Balance -1328 ml Capillary Refill : Less Than 3 Seconds General Appearance: No Apparent Distress WD/WN Respiratory: No Accessory Muscle Use Peripheral Pulses: 2+ Radial Pulses (R), 2+ Radial Pulses (L) Extremity: Normal Capillary Refill Normal Range of Motion Neurologic/Psychiatric: Oriented x3 No Motor/Sensory Deficits Results Lab Laboratory Tests 11/11/16 10:10: Vancomycin Level Trough 7.8L 11/11/16 18:30: Alanine Aminotransferase (ALT/SGPT) 37, Albumin 2.6L, Alkaline Phosphatase 47, Anion Gap 8, Aspartate Amino Transf (AST/SGOT) 26, BUN/Creatinine Ratio 13, Blood Urea Nitrogen 9, Calcium Level 7.3L, Carbon Dioxide Level 24, Chloride Level 111H, Creatinine 0.67, Estimat Glomerular Filtration Rate > 60, Glucose Level 90, Magnesium Level 1.8, Phosphorus Level 2.0L, Potassium Level 3.6, Sodium Level 143, Total Bilirubin 0.8, Total Protein 4.9L 11/12/16 04:30: Alanine Aminotransferase (ALT/SGPT) 53, Albumin 2.9L, Alkaline Phosphatase 54, Anion Gap 9, Aspartate Amino Transf (AST/SGOT) 42H, BUN/Creatinine Ratio 14, Blood Urea Nitrogen 10, Calcium Level 8.1L, Carbon Dioxide Level 25, Chloride Level 108H, Creatinine 0.71, Estimat Glomerular Filtration Rate > 60, Glucose Level 112H, Magnesium Level 2.0, Phosphorus Level 1.9L, Potassium Level 3.8, Sodium Level 142, Total Bilirubin 0.9, Total Protein 5.4L, Hematocrit 29L, Hemoglobin 9.7L, Mean Corpuscular Hemoglobin 29, Mean Corpuscular Hemoglobin Concent 33, Mean Corpuscular Volume 88, Mean Platelet Volume 10.5H, Platelet Count 241, Red Blood Count 3.32L, Red Cell Distribution Width 12.5, White Blood Count 6.1 Microbiology 11/10/16 Blood Culture - Preliminary, Resulted No growth 11/10/16 Gram Stain - Final, Resulted 11/10/16 Sputum Culture - Preliminary, Resulted Usual/normal gordon isolated. Assessment/Plan Assessment/Plan Assess & Plan/Chief Complaint Imp: Post op Pneumonia Cervical Stenosis/Spondylosis Myleopathy Continue current medical therapy Up with physical therapy when able DC KAITLIN drain Clinical Quality Measures DVT/VTE Risk/Contraindication: Risk Factor Score Per Nursin RFS Level Per Nursing on Admit: 1=Low/No VTE PPX Stroke: Date of last known well: Nov 05, 2016 Time of last known well: 12:00 DWAYNE KAUR Nov 12, 2016 07:24
--- NOTE | 2016-11-12 07:51 | Progress Note (SOAP) ---
Subjective Subjective/Events-last exam PT REPORTS FEELING BETTER. HE CONTINUES TO HAVE SOME SHORTNESS OF BREATH, HIS PAIN IS IMPROVED. Review of Systems General: Fatigue, Malaise HEENT: No Head Aches, No Eye Pain Pulmonary: Dyspnea, Cough Cardiovascular: No: Chest Pain Genitourinary: No Dysuria, No Frequency Musculoskeletal: neck pain Neurological: No: Confusion Objective Exam Vital Signs Date Time Temp Pulse Resp B/P Pulse Ox O2 Delivery O2 Flow Rate FiO2 11/12/16 06:52 98 2.00 11/12/16 06:00 75 21 143/97 98 Nasal Cannula 2.00 11/12/16 05:00 78 25 149/93 97 Nasal Cannula 2.00 11/12/16 04:11 98 Nasal Cannula 2.00 11/12/16 04:00 73 15 146/92 97 Nasal Cannula 2.00 11/12/16 03:00 79 23 144/96 98 Nasal Cannula 2.00 11/12/16 02:00 70 17 152/100 97 Nasal Cannula 2.00 11/12/16 01:00 78 11/12/16 01:00 78 13 156/106 97 Nasal Cannula 2.00 11/12/16 00:00 98.3 80 17 148/95 99 Nasal Cannula 2.00 11/12/16 00:00 99 Nasal Cannula 2.00 11/11/16 23:00 82 12 128/69 96 Nasal Cannula 2.00 11/11/16 22:00 85 17 169/96 97 Nasal Cannula 2.00 11/11/16 21:00 85 16 159/111 96 Nasal Cannula 2.00 11/11/16 20:23 97 2.00 11/11/16 20:00 80 16 152/94 98 Nasal Cannula 2.00 11/11/16 19:45 100 Nasal Cannula 2.00 11/11/16 19:00 77 11/11/16 19:00 97.9 75 15 145/82 98 Nasal Cannula 2.00 11/11/16 18:00 77 16 160/89 98 Nasal Cannula 4.00 11/11/16 17:00 88 22 156/92 98 Nasal Cannula 4.00 11/11/16 16:00 81 16 149/94 98 Nasal Cannula 4.00 11/11/16 16:00 97 Nasal Cannula 4.00 11/11/16 16:00 98.0 Nasal Cannula 4.00 11/11/16 15:00 75 14 150/100 99 Nasal Cannula 4.00 11/11/16 14:00 83 13 155/87 98 Nasal Cannula 4.00 11/11/16 13:00 90 11/11/16 13:00 75 13 166/ 99 Nasal Cannula 4.00 11/11/16 12:00 97 Nasal Cannula 4.00 11/11/16 12:00 97.6 Nasal Cannula 4.00 11/11/16 12:00 89 158/90 97 Nasal Cannula 4.00 11/11/16 11:19 98 2.00 11/11/16 10:13 2.00 11/11/16 10:00 92 27 98 Nasal Cannula 4.00 11/11/16 09:00 87 21 96 Nasal Cannula 4.00 11/11/16 08:00 91 13 150/82 97 Nasal Cannula 4.00 11/11/16 08:00 98.4 11/11/16 08:00 97 Nasal Cannula 4.00 I & O 11/12/16 06:59 Intake Total 2595 ml Output Total 3923 ml Balance -1328 ml Capillary Refill : Less Than 3 Seconds General Appearance: No Apparent Distress, WD/WN HEENT: PERRL/EOMI, Pharynx Normal Neck: Full Range of Motion, Supple Respiratory: Chest Non Tender, Decreased Breath Sounds Cardiovascular: Regular Rate, Rhythm, No Edema Gastrointestinal: normal bowel sounds, non tender, soft, no organomegaly, no pulsatile mass Neurologic/Psychiatric: Alert, Oriented x3, No Motor/Sensory Deficits, Normal Mood/Affect Skin: Warm/Dry Lymphatic: No Adenopathy Results Lab Laboratory Tests 11/11/16 10:10: Vancomycin Level Trough 7.8L 11/11/16 18:30: Alanine Aminotransferase (ALT/SGPT) 37, Albumin 2.6L, Alkaline Phosphatase 47, Anion Gap 8, Aspartate Amino Transf (AST/SGOT) 26, BUN/Creatinine Ratio 13, Blood Urea Nitrogen 9, Calcium Level 7.3L, Carbon Dioxide Level 24, Chloride Level 111H, Creatinine 0.67, Estimat Glomerular Filtration Rate > 60, Glucose Level 90, Magnesium Level 1.8, Phosphorus Level 2.0L, Potassium Level 3.6, Sodium Level 143, Total Bilirubin 0.8, Total Protein 4.9L 11/12/16 04:30: Alanine Aminotransferase (ALT/SGPT) 53, Albumin 2.9L, Alkaline Phosphatase 54, Anion Gap 9, Aspartate Amino Transf (AST/SGOT) 42H, BUN/Creatinine Ratio 14, Blood Urea Nitrogen 10, Calcium Level 8.1L, Carbon Dioxide Level 25, Chloride Level 108H, Creatinine 0.71, Estimat Glomerular Filtration Rate > 60, Glucose Level 112H, Magnesium Level 2.0, Phosphorus Level 1.9L, Potassium Level 3.8, Sodium Level 142, Total Bilirubin 0.9, Total Protein 5.4L, Hematocrit 29L, Hemoglobin 9.7L, Mean Corpuscular Hemoglobin 29, Mean Corpuscular Hemoglobin Concent 33, Mean Corpuscular Volume 88, Mean Platelet Volume 10.5H, Platelet Count 241, Red Blood Count 3.32L, Red Cell Distribution Width 12.5, White Blood Count 6.1 Microbiology 11/10/16 Blood Culture - Preliminary, Resulted No growth 11/10/16 Gram Stain - Final, Resulted 11/10/16 Sputum Culture - Preliminary, Resulted Usual/normal gordon isolated. 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 CEVALLOS'S RECOMMENDATIONS. LEFT LOWER LOBE PNEUMONIA - SEPSIS BY CRITERIA - STARTED ON HOSPITAL ACQUIRED PNEUMONIA PROTOCOL, WILL NOT START ON SEPSIS PROTOCOL DUE TO PT HAVING ACUTE FLUID OVERLOAD AND PUSHING TOO MUCH FLUID WOULD LEAD TO WORSENING ILLNESS OF PATIENT. RESPIRATORY FAILURE - PT DETERIORATED YESTERDAY IN THE ICU - WAS PLACED ON VENT - EXTUBATED THIS MORNING AT [address] DEGROOT. HYPERTENSION -RESTARTED HOME MEDS. C2/3 COMPRESSION - DEFER TO DR. RICHTER - MUSCLE SPASMS -SCHEDULE VALIUM THREE TIMES DAILY - DECREASE DOSE TO 2MG WHEN TAKING PO AND PRN PAIN MEDICATION DOSE DECREASED WELL BY DR. DEGROOT. HYPOPHOSPHATEMIA, HYPOMAGNESEMIA - REPLACEMENT BY PROTOCOL. ANEMIA - MONITOR H AND H. Clinical Quality Measures DVT/VTE Risk/Contraindication: Risk Factor Score Per Nursin RFS Level Per Nursing on Admit: 1=Low/No VTE PPX Stroke: Date of last known well: Nov 05, 2016 Time of last known well: 12:00 CRYSTAL BESS MD Nov 12, 2016 07:51
[2016-11-12] MEDS ORDERED: POLYETHYLENE GLYCOL 17 GM (MIRALAX) PACK PO NR (08:00)
[2016-11-12] MEDS: ASPIRIN E.C. 325 MG (ECOTRIN) TABLET PO SCH (08:44)
[2016-11-12] MEDS: lisINopril 20 MG (ZESTRIL) TAB PO SCH (08:44)
[2016-11-12] MEDS: SENNA W/DOCUSATE (SENOKOT S) TABLET PO SCH ×2 (08:47→21:05)
--- NOTE | 2016-11-12 09:11 | Cardiology Progress Note ---
Subjective Subjective/Events-last exam Patient is sitting up in chair, complaining of headache. Denies any CP or dyspnea. Review of Systems General: No Night Sweats, Fatigue Malaise HEENT: Head AchesNo Visual Changes, No Dysphasia, No Sore Throat Pulmonary: No Dyspnea, No Cough Cardiovascular: No: Chest Pain, Edema, Palpitations, Paroxysmal Noc. Dyspnea Gastrointestinal: No: Abdominal Pain, Nausea, Vomiting Genitourinary: No Dysuria, No Frequency Musculoskeletal: : back pain: neck pain Neurological: : WeaknessNo: Change in speech, Confusion, Numbness Objective-Cardiology Exam Last Set of Vital Signs Vital Signs 11/11/16 11/12/16 11/12/16 04:07 08:00 08:49 Temp 96.3 Pulse 88 Resp 14 B/P 129/79 Pulse Ox 98 O2 Delivery Nasal Cannula O2 Flow Rate 2.00 FiO2 50 Capillary Refill : Less Than 3 Seconds I&O Intake and Output 11/12/16 00:00 Intake Total 250 ml Output Total 2695 ml Balance -2445 ml Intake Oral 150 ml IV Total 100 ml Output Urine Total 2675 ml Drainage Total 20 ml General: Alert, Oriented X3, Cooperative, Mild Distress HEENT: Atraumatic, PERRLA Neck: Supple, No JVD, No Thyromegaly Lungs: Clear to Auscultation, Normal Air Movement Heart: Regular Rate, Normal S1, Normal S2, No Murmurs Abdomen: Normal Bowel Sounds, Soft, No Tenderness, No Hepatosplenomegaly, No Masses Extremities: No Clubbing, No Cyanosis, No Edema, Normal Pulses, No Tenderness/ Swelling Skin: No Rashes, No Breakdown, No Significant Lesion Neuro: Normal Gait, Normal Speech, Strength at 5/5 X4 Ext, Normal Tone, Sensation Intact Psych/Mental Status: Mental Status NL, Mood NL Results Lab Laboratory Tests 11/11/16 18:30 11/12/16 04:30 A/P-Cardiology Admission Diagnosis Acute respiratory failure Laminectomy Hypertension Chest pain Assessment/Plan Status post acute respiratory failure, intubated last night, extubated at this time, probably secondary to CO2 retention and pain medication. Managed by Dr. Guerrero. Feeling better at this time. Headache, numbness and weakness in the upper extremity, probably secondary to the spinal stenosis, status post C2-7 laminectomy, procedure done on November 06, 2016 Chest pain nonspecific etiology, seen for episode of chest pain in October 2016 , had an exercise stress echo, able to exercise for 9 minutes on Narendra protocol , no ischemic changes. Hypertension, status post admission for hypertensive emergency early in October , blood pressure meds restarted, continue to monitor. History of tobaccoism, chewing tobacco. Hyperlipidemia. Clinical Quality Measures DVT/VTE Risk/Contraindication: Risk Factor Score Per Nursin RFS Level Per Nursing on Admit: 1=Low/No VTE PPX Stroke: Date of last known well: Nov 05, 2016 Time of last known well: 12:00 SID MERIDA Nov 12, 2016 09:11
[2016-11-12] MEDS ORDERED: IBUPROFEN 600 MG (MOTRIN) TAB PO ONE (10:27)
--- NOTE | 2016-11-12 10:35 | Physical Therapy Daily Note ---
PT Daily Note-Current Subjective Pt agrees to PT. Does note that he just laid down and was hesitant to get up; however, during gait, he expressed that it felt good to walk. Pain Numeric Pain Scale: 4 Comment: "headache" requested pain meds Mental Status Patient Orientation: Person, Place, Time, Situation Attachments: Oxygen (in situ during and post treatment. ) Transfers Functional Gary Measure 0=Not Assessed/NA 4=Minimal Assistance 1=Total Assistance 5=Supervision or Setup 2=Maximal Assistance 6=Modified [place] 3=Moderate Assistance 7=Complete IndependenceIRFPAI Quality Coding Scale 6 Independent with activity with or without an assistive device 5 Patient requires set up or clean up by helper. Patient completes activity by themselves 4 Supervision or touching assist (CGA). [place] provide cues , steadying assist 3 The helper provides less than half the effort to complete the activity 2 The helper provides more than half the effort to complete the activity 1 Dependent. The helper does all the effort to complete an activity 7 Patient refused to complete or attempt activity 9 The patient did not perform the activity before the current illness or injury 88 Not attempted due to Medical conditions or safety concerns Transfers (B, C, W/C) (FIM): 5 Supine to/from Sit: 5 Sit to/from Stand: 5 SBA with all functional transfers for safety. Gait Training Gait (FIM): 4 Distance (FIM): 3=150 ft Distance: 200 ft Gait Assistive Device: FWW slow and steady; improved as he progresses. Improved marquez and step length with time. Assessment Current Status: Good Progress Improved functional transfers and gait distance. Making functional gains. PT Towel Hemmer Goals Alf Goals PT Alf Goals Time Frame: Nov 17, 2016 Transfers (B,C,W/C) (FIM): 6 Gait (FIM): 6 Distance: 150' Gait Assistive Device: FWW PT Plan Problem List Problem List: Activity Tolerance, Functional Strength Treatment/Plan Treatment Plan: Continue Plan of Care Treatment Plan: Bed Mobility, Education, Functional Activity Oseas, Functional Strength, Gait, Safety, Therapeutic Exercise, Transfers Treatment Duration: Nov 17, 2016 Visits Per Week: 5-6 Minutes/Day (M-F): 15-30 Minutes/Day (Sat/[place]): 15-30 Safety Risks/Education Patient Education: Transfer Techniques, Safety Issues Teaching Recipient: Patient Teaching Methods: Demonstration, Discussion Response to Teaching: Reinforcement Needed Time/GCodes Time In: 1000 Time Out: 1025 Total Billed Treatment Time: 25 Total Billed Treatment visit FA 10 GT 15 MAGAN BYERS PT Nov 12, 2016 10:35
--- NOTE | 2016-11-12 10:36 | Occupational Ther Daily Note ---
OT Current Status-Daily Note Subjective Pt. states that he has a headache. Does not state a pain number. Nursing notified. Appearance Pt. is awake and oriented. However, somewhat drowsy. Hard to understand at times, as he "mumbles" a bit. Mental Status/Objective Patient Orientation: Person Functional Pioneer Measure 0=Not Assessed/NA 4=Minimal Assistance 1=Total Assistance 5=Supervision or Setup 2=Maximal Assistance 6=Modified [place] 3=Moderate Assistance 7=Complete Pioneer Attachments: Drains, Romo Catheter, IV, Oxygen ADL-Treatment Transfers (B, C, W/C) (FIM): 4 (Pt. requires min assit for supine-sit. Will not let OT put bed flat to practice log rolling. Keeps HOB upright. Then requires min assist to transfer from bed-chair.) Pt. agrees to sit up in chair. States that he is tired. Noted that pt's bandages on back of neck are soaking through. Pt. has soaked his bed sheet and his pillow covering. Nursing notified of this and OT changed bed linens. All needs met up in chair. Family in room with pt. Other Treatment Pt. is educated about back safety and back precautions. Nods that he verbalizes understanding. Is not ready yet to begin ADL training. Education OT Patient Education: Correct positioning, Modified ADL techniques, Progress toward Goal/Update tx plan, Purpose of tx/functional activities, Reviewed precautions, Rehab process, Transfer techniques Teaching Recipient: Patient Teaching Methods: Demonstration, Discussion Response to Teaching: Verbalize Understanding, Return Demonstration OT Short Term Goals Short Term Goals 1=Demonstrate adherence to instructed precautions during ADL tasks. 2=Patient will verbalize/demonstrate understanding of assistive devices/ modifications for ADL. 3=Patient will improve strength/tolerance for activity to enable patient to perform ADL's. OT Custodial Goals Custodial Goals Time Frame: Nov 21, 2016 Eating (FIM): 6 Grooming(FIM): 6 Bathing(FIM): 6 Upper Body Dressing(FIM): 6 Lower Body Dressing(FIM): 5 Toileting(FIM): 6 Toilet/Commode Transfer(FIM): 6 Shower Transfer(FIM): 6 Additional Goals: 2-Verbalize Understanding, 3-ImproveStrength/Oseas 1=Demonstrate adherence to instructed precautions during ADL tasks. 2=Patient will verbalize/demonstrate understanding of assistive devices/ modifications for ADL. 3=Patient will improve strength/tolerance for activity to enable patient to perform ADL's. OT Education/Plan Problem List/Assessment Assessment: Decreased Activ Tolerance, Dependent Transfers, Impaired Bed Mobility, Impaired Funct Balance, Impaired I ADL's, Impaired Self-Care Skills Pt would benefit from skilled OT to increase his independence in basic self care to allow him to return home safely after surgery and respiratory distress/ pneumonia. Discharge Recommendations Plan/Recommendations: Continue POC Therapy D/C Recommendations: Home w/ Family Support, Occupational Therapy Home Care Equpiment Recommendations-D/C: Hip Kit Comment Unsure of all of pt's equipment needs at this time. Treatment Plan/Plan of Care Treatment,Training & Education: Yes Patient would benefit from OT for education, treatment and training to promote independence in ADL's, mobility, safety and/or upper extremity function for ADL' s. Plan of Care: ADL Retraining, Functional Mobility, UE Funct Exercise/Act Treatment Duration: Nov 21, 2016 Visits Per Week: 5 Agreement: Yes Rehab Potential: Good Time/GCodes Start Time: 09:00 Stop Time: 09:15 Total Time Billed (hr/min): 15 Billed Treatment Time 1, SUDHA MOTTA OT Nov 12, 2016 10:36
[2016-11-12] MEDS: LEVOFLOXACIN 750 MG TAB (LEVAQUIN) PO SCH (10:59)
[2016-11-12] MEDS: ENOXAPARIN 40 MG/0.4 ML (LOVENOX) SYR SC SCH (11:00)
[2016-11-12] MEDS ORDERED: IBUPROFEN 600 MG (MOTRIN) TAB PO SCH (12:00)
--- NOTE | 2016-11-12 12:03 | Diagnostic Imaging Report ---
INDICATION: Post extubation. Compared 11/11/2016. FINDINGS: Perihilar and basilar infiltrates are not substantially changed from the prior. Heart size and configuration stable. No gross overdistention of the pulmonary vascularity. No effusion or pneumothorax. Basilar infiltrates remain asymmetric, greater left than right. Postsurgical changes and support apparatus stable. IMPRESSION: Bibasilar and perihilar infiltrates, greater left, showed no substantial change. Dictated by: Dictated on workstation # [id number]
--- NOTE | 2016-11-12 15:16 | Cardiology Progress Note ---
Subjective Subjective/Events-last exam patient is laying down and it, feeling better, still having mild shortness of breath. Review of Systems General: No Chills, No Night Sweats, No Fatigue, No Malaise, No Appetite, No Other HEENT: No Head Aches, No Visual Changes, No Eye Pain, No Ear Pain, No Dysphasia , No Sinus Congestion, No Post Nasal Drip, No Sore Throat, No Other Pulmonary: DyspneaNo Cough, No Pleuritic Chest Pain, No Other Cardiovascular: No: Chest Pain, Edema, Lt Headedness, Orthopnea, Other, Palpitations, Paroxysmal Noc. Dyspnea Objective-Cardiology Exam Last Set of Vital Signs Vital Signs 11/11/16 11/12/16 11/12/16 04:07 11:47 14:37 Temp 98.2 Pulse 84 Resp 16 B/P 150/94 Pulse Ox 99 O2 Delivery Nasal Cannula O2 Flow Rate 2.00 FiO2 50 Capillary Refill : Less Than 3 Seconds I&O Intake and Output 11/12/16 00:00 Intake Total 250 ml Output Total 2695 ml Balance -2445 ml Intake Oral 150 ml IV Total 100 ml Output Urine Total 2675 ml Drainage Total 20 ml General: Alert, Oriented X3, Cooperative, Mild Distress HEENT: Atraumatic, PERRLA Neck: Supple, No JVD, No Thyromegaly Lungs: Clear to Auscultation, Normal Air Movement Heart: Regular Rate, Normal S1, Normal S2, No Murmurs Abdomen: Normal Bowel Sounds, Soft, No Tenderness, No Hepatosplenomegaly, No Masses Extremities: No Clubbing, No Cyanosis, No Edema, Normal Pulses, No Tenderness/ Swelling Skin: No Rashes, No Breakdown, No Significant Lesion Neuro: Normal Gait, Normal Speech, Strength at 5/5 X4 Ext, Normal Tone, Sensation Intact Psych/Mental Status: Mental Status NL, Mood NL Results Lab Laboratory Tests 11/11/16 18:30 11/12/16 04:30 A/P-Cardiology Admission Diagnosis Acute respiratory failure Laminectomy Hypertension Chest pain Assessment/Plan Status post acute respiratory failure, better at this time, CO2 narcosis, reporting improvement, awake, cooperative. Continue to monitor. Headache, numbness and weakness in the upper extremity, probably secondary to the spinal stenosis, status post C2-7 laminectomy, procedure done on November 06, 2016 Chest pain nonspecific etiology, seen for episode of chest pain in October 2016 , had an exercise stress echo, able to exercise for 9 minutes on Narendra protocol , no ischemic changes. Hypertension, status post admission for hypertensive emergency early in October , blood pressure meds restarted, continue to monitor. History of tobaccoism, chewing tobacco. Hyperlipidemia. Clinical Quality Measures DVT/VTE Risk/Contraindication: Risk Factor Score Per Nursin RFS Level Per Nursing on Admit: 1=Low/No VTE PPX Stroke: Date of last known well: Nov 05, 2016 Time of last known well: 12:00 DINAH JOSE MD Nov 12, 2016 3:15 pm
[2016-11-12] MEDS: NEBIVOLOL 5 MG TAB (BYSTOLIC) PO SCH (21:05)
[2016-11-12] MEDS: IBUPROFEN 600 MG (MOTRIN) TAB PO PRN (21:08)
[2016-11-12] MEDS ORDERED: TROUGH ORDER-PHARMACY XX NR (22:00)
[2016-11-13] VITALS: BP 146/79
[2016-11-13 03:45] VITALS: BP 150/85
[2016-11-13 05:45] LABS: MEAN PLATELET VOLUME 10.8 FL (7.4-10.4); RED BLOOD COUNT 3.34 10^6/uL (4.35-5.85); RED CELL DISTRIBUTION WIDTH 12.8 % (10.0-14.5); WHITE BLOOD COUNT 5.3 10^3/uL (4.3-11.0)
[2016-11-13 06:07] LABS: ALANINE AMINOTRANSFERASE 49 U/L (0-55); ALBUMIN 2.9 G/DL (3.2-4.5); ANION GAP 9 MMOL/L (5-14); ASPARTATE AMINO TRANSFERASE 32 U/L (5-34); BILIRUBIN,TOTAL 0.7 MG/DL (0.1-1.0); BLOOD UREA NITROGEN 11 MG/DL (7-18); BUN/CREATININE RATIO 14; CALCIUM 8.4 MG/DL (8.5-10.1); CARBON DIOXIDE 28 MMOL/L (21-32); CHLORIDE 107 MMOL/L (98-107); CREATININE SERUM 0.78 MG/DL (0.60-1.30); GFR ESTIMATED > 60; GLUCOSE 97 MG/DL (70-105); PHOSPHORUS 2.8 MG/DL (2.3-4.7); POTASSIUM 3.5 MMOL/L (3.6-5.0); SODIUM 144 MMOL/L (135-145); TOTAL PROTEIN 5.4 G/DL (6.4-8.2)
[2016-11-13] MEDS: PANTOPRAZOLE 40 MG (PROTONIX) TAB PO SCH (06:36)
[2016-11-13] MEDS: MULTIVIT W/MINERALS TAB (THERAGRAN M) PO SCH (06:36)
[2016-11-13] MEDS: SUCRALFATE 1 GM (CARAFATE) TAB PO SCH ×4 (06:36→20:40)
[2016-11-13] MEDS: RT-ALBUTEROL/IPRATROPIUM 3 ML (DUONEB) VIAL INH SCH ×4 (07:24→19:29)
[2016-11-13 08:00] VITALS: BP 162/92
[2016-11-13] MEDS: IBUPROFEN 600 MG (MOTRIN) TAB PO PRN ×3 (08:30→21:34)
[2016-11-13] MEDS: lisINopril 20 MG (ZESTRIL) TAB PO SCH (08:30)
[2016-11-13] MEDS: SENNA W/DOCUSATE (SENOKOT S) TABLET PO SCH ×2 (08:30→20:40)
[2016-11-13] MEDS: ASPIRIN E.C. 325 MG (ECOTRIN) TABLET PO SCH (08:30)
--- NOTE | 2016-11-13 08:50 | Diagnostic Imaging Report ---
EXAMINATION: Portable erect AP chest obtained at 419h. INDICATION: Respiratory distress The heart is stable in size when compared to the prior exam of 11/12/16. Both lungs do seem better aerated however, particularly the right lung. There is only minimal if any residual density still present in the right lung. There is a small amount of residual pneumonia/atelectasis in the left lung base. The mediastinum is not widened. The osseous structures are intact. The right-sided PICC line and the orthopedic hardware overlying the cervicothoracic spine seen previously are again evident and no different. IMPRESSION: The appearance of the chest has improved as both lungs are better aerated. A followup study would be recommended for continued evaluation. Dictated by: Dictated on workstation # [id number]
--- NOTE | 2016-11-13 09:28 | Progress Note (SOAP) ---
Subjective Subjective/Events-last exam PT CONTINUES TO IMPROVE, HAS PAIN IN HIS NECK, STILL HAS A BIT OF A COUGH AND SHORTNESS OF BREATH, BUT IT HAS IMPROVED SIGNIFICANTLY. Review of Systems General: No Chills, Fatigue HEENT: No Head Aches Pulmonary: No Dyspnea, Cough Cardiovascular: No: Chest Pain, Orthopnea Gastrointestinal: No: Abdominal Pain, Nausea Neurological: Weakness, No: Confusion Objective Exam Vital Signs Date Time Temp Pulse Resp B/P Pulse Ox O2 Delivery O2 Flow Rate FiO2 11/13/16 07:24 96 2.00 11/13/16 03:45 98.1 78 18 150/85 98 Nasal Cannula 2.00 11/13/16 00:00 98.0 89 20 146/79 97 NIV/CPAP 2.00 11/12/16 20:00 Nasal Cannula 2.00 11/12/16 19:50 97.9 97 18 176/84 96 Nasal Cannula 2.00 11/12/16 18:56 94 11/12/16 16:30 97.1 88 20 142/68 94 Room Air 11/12/16 16:30 Nasal Cannula 2.00 11/12/16 16:11 100 13 131/74 99 Nasal Cannula 2.00 11/12/16 14:37 99 2.00 11/12/16 13:00 92 11/12/16 11:47 98.2 84 16 150/94 99 Nasal Cannula 2.00 11/12/16 11:45 98 Nasal Cannula 2.00 11/12/16 10:47 99 2.00 I & O 11/13/16 07:00 Intake Total 1260 ml Output Total 5200 ml Balance -3940 ml Capillary Refill : Less Than 3 Seconds General Appearance: No Apparent Distress, WD/WN HEENT: PERRL/EOMI, Pharynx Normal Neck: Full Range of Motion, Supple Respiratory: Chest Non Tender, Lungs Clear Cardiovascular: Regular Rate, Rhythm Gastrointestinal: normal bowel sounds, non tender, soft, no organomegaly, no pulsatile mass Extremity: No Pedal Edema Neurologic/Psychiatric: Alert, Oriented x3, No Motor/Sensory Deficits, Normal Mood/Affect Skin: Warm/Dry Lymphatic: No Adenopathy Results Lab Laboratory Tests 11/13/16 04:25: Alanine Aminotransferase (ALT/SGPT) 49, Albumin 2.9L, Alkaline Phosphatase 56, Anion Gap 9, Aspartate Amino Transf (AST/SGOT) 32, BUN/Creatinine Ratio 14, Blood Urea Nitrogen 11, Calcium Level 8.4L, Carbon Dioxide Level 28, Chloride Level 107, Creatinine 0.78, Estimat Glomerular Filtration Rate > 60, Glucose Level 97, Hematocrit 30L, Hemoglobin 9.7L, Magnesium Level 2.0, Mean Corpuscular Hemoglobin 29, Mean Corpuscular Hemoglobin Concent 33, Mean Corpuscular Volume 88, Mean Platelet Volume 10.8H, Phosphorus Level 2.8, Platelet Count 265, Potassium Level 3.5L, Red Blood Count 3.34L, Red Cell Distribution Width 12.8, Sodium Level 144, Total Bilirubin 0.7, Total Protein 5.4L, White Blood Count 5.3 Microbiology 11/10/16 Blood Culture - Preliminary, Resulted No growth 11/10/16 Gram Stain - Final, Complete 11/10/16 Sputum Culture - Final, Complete Usual/normal gordon isolated. 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 CEVALLOS'S RECOMMENDATIONS. LEFT LOWER LOBE PNEUMONIA - SEPSIS BY CRITERIA - STARTED ON HOSPITAL ACQUIRED PNEUMONIA PROTOCOL, WILL NOT START ON SEPSIS PROTOCOL DUE TO PT HAVING ACUTE FLUID OVERLOAD AND PUSHING TOO MUCH FLUID WOULD LEAD TO WORSENING ILLNESS OF PATIENT. RESPIRATORY FAILURE - PT DETERIORATED YESTERDAY IN THE ICU - WAS PLACED ON VENT - EXTUBATED THIS MORNING AT [address] DEGROOT. HYPERTENSION -RESTARTED HOME MEDS. C2/3 COMPRESSION - DEFER TO DR. RICHTER - MUSCLE SPASMS -SCHEDULE VALIUM THREE TIMES DAILY - DECREASE DOSE TO 2MG WHEN TAKING PO AND PRN PAIN MEDICATION DOSE DECREASED WELL BY DR. DEGROOT. HYPOPHOSPHATEMIA, HYPOMAGNESEMIA - REPLACEMENT BY PROTOCOL. ANEMIA - MONITOR H AND H. Clinical Quality Measures DVT/VTE Risk/Contraindication: Risk Factor Score Per Nursin RFS Level Per Nursing on Admit: 1=Low/No VTE PPX Stroke: Date of last known well: Nov 05, 2016 Time of last known well: 12:00 CRYSTAL BESS MD Nov 13, 2016 09:28
[2016-11-13] MEDS: oxyCODONE/APAP 7.5-325 MG (PERCOCET 7.5) TABLET PO PRN ×2 (09:29→12:58)
[2016-11-13] MEDS: ENOXAPARIN 40 MG/0.4 ML (LOVENOX) SYR SC SCH (09:29)
--- NOTE | 2016-11-13 09:48 | Physical Therapy Progress Note ---
Therapy Progress Note Patient declined PT this a.m. due to having just returned to bed and is too fatigued to participate. PT will attempt later on this date. 1 ref ANABELL FLEMING PT Nov 13, 2016 09:48
--- NOTE | 2016-11-13 10:25 | Occupational Ther Daily Note ---
OT Current Status-Daily Note Subjective Pt. does not report pain, but just has had pain medication. Appearance Pt. is up in chair with eyes closed. Agrees to shower and complete ADLs. Mental Status/Objective Patient Orientation: Person, Place, Time, Situation Functional [place] Measure 0=Not Assessed/NA 4=Minimal Assistance 1=Total Assistance 5=Supervision or Setup 2=Maximal Assistance 6=Modified [place] 3=Moderate Assistance 7=Complete [place] ADL-Treatment Bathing (FIM): 5 (SBA required only. Pt. and spouse state that spouse will be with him when he completes these tasks at home.) Upper Body (FIM): 5 Lower Body Dressing (FIM): 5 (Pt. is able to doff/don socks with adaptive equipment.) Transfers (B, C, W/C) (FIM): 5 (with walker) Shower Transfer(FIM): 5 Other Treatment Pt. agreed to shower this date. Does not have street clothing available. Pt. instructed on use of sock aide, dressing stick, and home furnishings sales representative. Pt. and spouse are educated on where to get equipment from. Both verbalize understanding. Pt. is also educated on obtaining a long handled sponge to wash and dry feet. Instructed on back safety and back precautions. Pt. verbalizes understanding but still does break them at times by bending over. Nursing notified after shower for dressing changes. Physician came into room this date and states that pt. will be discharging tomorrow. Education OT Patient Education: Correct positioning, Instructions to caregiver, Modified ADL techniques, Progress toward Goal/Update tx plan, Purpose of tx/functional activities, Reviewed precautions, Rehab process, Safety issues, Transfer techniques, Use of adapted equipment Teaching Recipient: Patient, Significant Other Teaching Methods: Demonstration, Discussion Response to Teaching: Verbalize Understanding, Return Demonstration OT Short Term Goals Short Term Goals 1=Demonstrate adherence to instructed precautions during ADL tasks. 2=Patient will verbalize/demonstrate understanding of assistive devices/ modifications for ADL. 3=Patient will improve strength/tolerance for activity to enable patient to perform ADL's. OT [facility] Goals [facility] Goals Time Frame: Nov 21, 2016 Eating (FIM): 6 Grooming(FIM): 6 Bathing(FIM): 6 Upper Body Dressing(FIM): 6 Lower Body Dressing(FIM): 5 Toileting(FIM): 6 Toilet/Commode Transfer(FIM): 6 Shower Transfer(FIM): 6 Additional Goals: 2-Verbalize Understanding, 3-ImproveStrength/[place] 1=Demonstrate adherence to instructed precautions during ADL tasks. 2=Patient will verbalize/demonstrate understanding of assistive devices/ modifications for ADL. 3=Patient will improve strength/tolerance for activity to enable patient to perform ADL's. OT Education/Plan Problem List/Assessment Assessment: Decreased Activ Tolerance Pt would benefit from skilled OT to increase his independence in basic self care to allow him to return home safely after surgery and respiratory distress/ pneumonia. Discharge Recommendations Plan/Recommendations: Discontinue OT Therapy D/C Recommendations: Home w/ Family Support Equpiment Recommendations-D/C: Hip Kit Comment Pt. and family is educated on where to buy a hip kit from. They both verbalize understanding. Target Placement Home tomorrow with spouse assist. Treatment Plan/Plan of Care Treatment,Training & Education: Yes . Plan of Care: ADL Retraining, Functional Mobility, UE Funct Exercise/Act Treatment Duration: Nov 21, 2016 Visits Per Week: 5 Agreement: Yes Rehab Potential: Good OT to discharge pt. today, as pt. has been instructed in use of adaptive equipment, back precautions, and adaptive techniques to maintain back precautions. Pt. has completed ADL training with showering and socks. Street clothing not available, but pt. and spouse know how to don this when it is. Time/GCodes Start Time: 08:30 Stop Time: 09:05 Total Time Billed (hr/min): 35 Billed Treatment Time 1, ADL x 2 SUDHA ANAND OT Nov 13, 2016 10:25
[2016-11-13] MEDS: LEVOFLOXACIN 750 MG TAB (LEVAQUIN) PO SCH (10:34)
--- NOTE | 2016-11-13 10:45 | Pulmonary Progress Note ---
Subjective Subjective/Events-last exam Pt doing better is on RA now. Exam Exam Vital Signs Date Time Temp Pulse Resp B/P Pulse Ox O2 Delivery O2 Flow Rate FiO2 11/13/16 10:30 92 11/13/16 08:23 Room Air 11/13/16 08:00 97.1 82 20 162/92 93 Nasal Cannula 2.00 11/13/16 07:24 96 2.00 11/13/16 03:45 98.1 78 18 150/85 98 Nasal Cannula 2.00 11/13/16 00:00 98.0 89 20 146/79 97 NIV/CPAP 2.00 11/12/16 20:00 Nasal Cannula 2.00 11/12/16 19:50 97.9 97 18 176/84 96 Nasal Cannula 2.00 11/12/16 18:56 94 11/12/16 16:30 97.1 88 20 142/68 94 Room Air 11/12/16 16:30 Nasal Cannula 2.00 11/12/16 16:11 100 13 131/74 99 Nasal Cannula 2.00 11/12/16 14:37 99 2.00 11/12/16 13:00 92 11/12/16 11:47 98.2 84 16 150/94 99 Nasal Cannula 2.00 11/12/16 11:45 98 Nasal Cannula 2.00 11/12/16 10:47 99 2.00 I & O 11/13/16 07:00 Intake Total 1260 ml Output Total 5200 ml Balance -3940 ml General Appearance: No Apparent Distress WD/WN HEENT: PERRL/EOMI Neck: Full Range of Motion Supple Respiratory: No Accessory Muscle Use Cardiovascular: Tachycardia Capillary Refill: Less Than 3 Seconds Peripheral Pulses: 2+ Radial Pulses (R), 2+ Radial Pulses (L) Gastrointestinal: normal bowel sounds non tender soft no organomegaly no pulsatile mass Extremity: Normal Capillary Refill Normal Range of Motion Neurologic/Psychiatric: Oriented x3 No Motor/Sensory Deficits Skin: Warm/Dry Other (DRESSING ON NECK C/D/I) Lymphatic: No Adenopathy Results Lab Laboratory Tests 11/11/16 18:30 11/12/16 04:30 11/13/16 04:25 Assessment/Plan Assessment/Plan Cervical Spondylosis Cervical Stenosis - s/p surgery -Pain control NIDHI -Home CPAP Hypoxia with pulmonary edema and atelectasis -IS -titrate oxygen to D/C -check oxygen desaturation testing prior to discharge Clinical Quality Measures DVT/VTE Risk/Contraindication: Risk Factor Score Per Nursin RFS Level Per Nursing on Admit: 1=Low/No VTE PPX Stroke: Date of last known well: Nov 05, 2016 Time of last known well: 12:00 ANTONIETTA DEGROOT DO Nov 13, 2016 10:45
[2016-11-13 12:00] VITALS: BP 153/94
--- NOTE | 2016-11-13 13:15 | Cardiology Progress Note ---
Subjective Subjective/Events-last exam Patient sitting up in bed. Complaining of neck pain, states headache has improved. Denies any CP or dyspnea. Review of Systems General: No Night Sweats, No Fatigue, No Malaise HEENT: No Visual Changes, No Dysphasia Pulmonary: No Dyspnea, No Cough Cardiovascular: No: Chest Pain, Edema, Palpitations, Paroxysmal Noc. Dyspnea Gastrointestinal: No: Abdominal Pain, Nausea, Vomiting Genitourinary: No Dysuria, No Frequency Musculoskeletal: : neck painNo: back pain Neurological: No: Change in speech, Confusion, Numbness, Weakness Objective-Cardiology Exam Last Set of Vital Signs Vital Signs 11/11/16 11/13/16 11/13/16 11/13/16 04:07 08:00 08:23 10:30 Temp 97.1 Pulse 82 Resp 20 B/P 162/92 Pulse Ox 92 O2 Delivery Room Air O2 Flow Rate 2.00 FiO2 50 Capillary Refill : Less Than 3 Seconds I&O Intake and Output 11/13/16 00:00 Intake Total 3555 ml Output Total 6703 ml Balance -3148 ml Intake Oral 1310 ml IV Total 2245 ml Output Urine Total 6700 ml Drainage Total 3 ml # Bowel Movements 1 General: Alert, Oriented X3, Cooperative, Mild Distress HEENT: Atraumatic, PERRLA Neck: Supple, No JVD, No Thyromegaly Lungs: Clear to Auscultation, Normal Air Movement Heart: Regular Rate, Normal S1, Normal S2, No Murmurs Abdomen: Normal Bowel Sounds, Soft, No Tenderness, No Hepatosplenomegaly, No Masses Extremities: No Clubbing, No Cyanosis, No Edema, Normal Pulses, No Tenderness/ Swelling Skin: No Rashes, No Breakdown, No Significant Lesion Neuro: Normal Gait, Normal Speech, Strength at 5/5 X4 Ext, Normal Tone, Sensation Intact Psych/Mental Status: Mental Status NL, Mood NL Results Lab Laboratory Tests 11/13/16 04:25 A/P-Cardiology Admission Diagnosis Acute respiratory failure Laminectomy Hypertension Chest pain Assessment/Plan Status post acute respiratory failure, better at this time, CO2 narcosis, reporting improvement, awake, cooperative. Continue to monitor. Headache, numbness and weakness in the upper extremity, probably secondary to the spinal stenosis, status post C2-7 laminectomy, procedure done on November 06, 2016. Patient reporting some improvement. Chest pain nonspecific etiology, seen for episode of chest pain in October 2016 , had an exercise stress echo, able to exercise for 9 minutes on Narendra protocol , no ischemic changes. Hypertension, status post admission for hypertensive emergency early in October , continues to be mildly elevated. I will add Norvasc 5mg and continue to monitor BP/HR, History of tobaccoism, chewing tobacco. Hyperlipidemia. Clinical Quality Measures DVT/VTE Risk/Contraindication: Risk Factor Score Per Nursin RFS Level Per Nursing on Admit: 1=Low/No VTE PPX Stroke: Date of last known well: Nov 05, 2016 Time of last known well: 12:00 SID MERIDA Nov 13, 2016 13:15
--- NOTE | 2016-11-13 13:40 | Physical Therapy Progress Note ---
Therapy Progress Note Patient is up independent in hallway with family with FWW. PT and patient discussed POC and both agree to dismiss patient from services at this time with patient ambulating PRN in hallway. ANABELL FLEMING PT Nov 13, 2016 13:40
[2016-11-13] MEDS: amLODIPine 5 MG (NORVASC) TAB PO SCH (14:15)
--- NOTE | 2016-11-13 14:56 | Cardiology Progress Note ---
Subjective Subjective/Events-last exam patient is laying down in bed, still having elevated blood pressure, his shortness of breath is better. Review of Systems General: No Chills, No Night Sweats, No Fatigue, No Malaise, No Appetite, No Other HEENT: No Head Aches, No Visual Changes, No Eye Pain, No Ear Pain, No Dysphasia , No Sinus Congestion, No Post Nasal Drip, No Sore Throat, No Other Pulmonary: No Dyspnea, No Cough, No Pleuritic Chest Pain, No Other Cardiovascular: No: Chest Pain, Edema, Lt Headedness, Orthopnea, Other, Palpitations, Paroxysmal Noc. Dyspnea Objective-Cardiology Exam Last Set of Vital Signs Vital Signs 11/11/16 11/13/16 11/13/16 04:07 12:00 14:20 Temp 98.4 Pulse 95 Resp 18 B/P 153/94 Pulse Ox 92 O2 Delivery Nasal Cannula O2 Flow Rate 2.00 FiO2 50 Capillary Refill : Less Than 3 Seconds I&O Intake and Output 11/13/16 00:00 Intake Total 3555 ml Output Total 6703 ml Balance -3148 ml Intake Oral 1310 ml IV Total 2245 ml Output Urine Total 6700 ml Drainage Total 3 ml # Bowel Movements 1 General: Alert, Oriented X3, Cooperative, Mild Distress HEENT: Atraumatic, PERRLA Neck: Supple, No JVD, No Thyromegaly Lungs: Clear to Auscultation, Normal Air Movement Heart: Regular Rate, Normal S1, Normal S2, No Murmurs Abdomen: Normal Bowel Sounds, Soft, No Tenderness, No Hepatosplenomegaly, No Masses Extremities: No Clubbing, No Cyanosis, No Edema, Normal Pulses, No Tenderness/ Swelling Skin: No Rashes, No Breakdown, No Significant Lesion Neuro: Normal Gait, Normal Speech, Strength at 5/5 X4 Ext, Normal Tone, Sensation Intact Psych/Mental Status: Mental Status NL, Mood NL Results Lab Laboratory Tests 11/13/16 04:25 A/P-Cardiology Admission Diagnosis Acute respiratory failure Laminectomy Hypertension Chest pain Assessment/Plan Status post acute respiratory failure, better at this time, CO2 narcosis, reporting improvement, awake, cooperative. Continue to monitor. Headache, numbness and weakness in the upper extremity, probably secondary to the spinal stenosis, status post C2-7 laminectomy, procedure done on November 06, 2016. Patient reporting some improvement. Chest pain nonspecific etiology, seen for episode of chest pain in October 2016 , had an exercise stress echo, able to exercise for 9 minutes on Narendra protocol , no ischemic changes. Hypertension, status post admission for hypertensive emergency early in October , continues to be mildly elevated. I will add Norvasc 5mg and continue to monitor BP/HR, History of tobaccoism, chewing tobacco. Hyperlipidemia. Clinical Quality Measures DVT/VTE Risk/Contraindication: Risk Factor Score Per Nursin RFS Level Per Nursing on Admit: 1=Low/No VTE PPX Stroke: Date of last known well: Nov 05, 2016 Time of last known well: 12:00 DINAH JOSE MD Nov 13, 2016 14:56
[2016-11-13 15:40] VITALS: BP 155/85
[2016-11-13 20:00] VITALS: BP 169/87
[2016-11-13] MEDS: NEBIVOLOL 5 MG TAB (BYSTOLIC) PO SCH (20:40)
[2016-11-14] VITALS: BP 159/92
[2016-11-14 04:00] VITALS: BP 163/91
[2016-11-14] MEDS: PANTOPRAZOLE 40 MG (PROTONIX) TAB PO SCH (06:26)
[2016-11-14] MEDS: SUCRALFATE 1 GM (CARAFATE) TAB PO SCH ×2 (06:26→10:04)
[2016-11-14] MEDS: MULTIVIT W/MINERALS TAB (THERAGRAN M) PO SCH (06:26)
[2016-11-14] MEDS: IBUPROFEN 600 MG (MOTRIN) TAB PO PRN (06:30)
[2016-11-14] MEDS: RT-ALBUTEROL/IPRATROPIUM 3 ML (DUONEB) VIAL INH SCH ×2 (06:49→10:29)
--- NOTE | 2016-11-14 07:33 | Pulmonary Progress Note ---
Subjective Subjective/Events-last exam PT appears much improved no complications noted. Exam Exam Vital Signs Date Time Temp Pulse Resp B/P Pulse Ox O2 Delivery O2 Flow Rate FiO2 11/14/16 06:52 95 11/14/16 04:00 96.1 80 18 163/91 96 Room Air 11/14/16 00:00 97.6 89 16 159/92 97 NIV/CPAP 11/13/16 20:00 96.8 90 18 169/87 95 Room Air 11/13/16 19:30 95 11/13/16 15:40 97.1 106 18 155/85 93 Room Air 11/13/16 14:20 92 11/13/16 12:00 98.4 95 18 153/94 96 Nasal Cannula 2.00 11/13/16 10:30 92 11/13/16 08:23 Room Air 11/13/16 08:00 97.1 82 20 162/92 93 Nasal Cannula 2.00 I & O 11/14/16 07:00 Intake Total 1740 ml Output Total 3225 ml Balance -1485 ml General Appearance: No Apparent Distress WD/WN HEENT: PERRL/EOMI Neck: Full Range of Motion Supple Respiratory: No Accessory Muscle Use Cardiovascular: Tachycardia Capillary Refill: Less Than 3 Seconds Peripheral Pulses: 2+ Radial Pulses (R), 2+ Radial Pulses (L) Gastrointestinal: normal bowel sounds non tender soft no organomegaly no pulsatile mass Extremity: Normal Capillary Refill Normal Range of Motion Neurologic/Psychiatric: Oriented x3 No Motor/Sensory Deficits Skin: Warm/Dry Other (DRESSING ON NECK C/D/I) Lymphatic: No Adenopathy Results Lab Laboratory Tests 11/13/16 04:25 Assessment/Plan Assessment/Plan Cervical Spondylosis Cervical Stenosis - s/p surgery -Pain control NIDHI -Home CPAP Hypoxia with pulmonary edema and atelectasis - ON RA now -IS -titrate oxygen to D/C -check oxygen desaturation testing prior to discharge Clinical Quality Measures DVT/VTE Risk/Contraindication: Risk Factor Score Per Nursin RFS Level Per Nursing on Admit: 1=Low/No VTE PPX Stroke: Date of last known well: Nov 05, 2016 Time of last known well: 12:00 ANTONIETTA DEGROOT DO Nov 14, 2016 07:33
[2016-11-14 07:51] LABS: PHOSPHORUS 2.8 MG/DL (2.3-4.7)
[2016-11-14 08:00] VITALS: BP 168/94
--- NOTE | 2016-11-14 08:12 | Cardiology Progress Note ---
Subjective Subjective/Events-last exam patient is laying down in bed, denied any chest pain or shortness of breath. Reporting improvement. Review of Systems General: No Chills, No Night Sweats, No Fatigue, No Malaise, No Appetite, No Other HEENT: No Head Aches, No Visual Changes, No Eye Pain, No Ear Pain, No Dysphasia , No Sinus Congestion, No Post Nasal Drip, No Sore Throat, No Other Pulmonary: No Dyspnea, No Cough, No Pleuritic Chest Pain, No Other Cardiovascular: No: Chest Pain, Edema, Lt Headedness, Orthopnea, Other, Palpitations, Paroxysmal Noc. Dyspnea Objective-Cardiology Exam Last Set of Vital Signs Vital Signs 11/11/16 11/13/16 11/14/16 11/14/16 04:07 12:00 04:00 06:52 Temp 96.1 Pulse 80 Resp 18 B/P 163/91 Pulse Ox 95 O2 Delivery Room Air O2 Flow Rate 2.00 FiO2 50 Capillary Refill : Less Than 3 Seconds I&O Intake and Output 11/14/16 00:00 Intake Total 1290 ml Output Total 2125 ml Balance -835 ml Intake Oral 1290 ml Output Urine Total 2125 ml # Voids 3 General: Alert, Oriented X3, Cooperative, Mild Distress HEENT: Atraumatic, PERRLA Neck: Supple, No JVD, No Thyromegaly Lungs: Clear to Auscultation, Normal Air Movement Heart: Regular Rate, Normal S1, Normal S2, No Murmurs Abdomen: Normal Bowel Sounds, Soft, No Tenderness, No Hepatosplenomegaly, No Masses Extremities: No Clubbing, No Cyanosis, No Edema, Normal Pulses, No Tenderness/ Swelling Skin: No Rashes, No Breakdown, No Significant Lesion Neuro: Normal Gait, Normal Speech, Strength at 5/5 X4 Ext, Normal Tone, Sensation Intact Psych/Mental Status: Mental Status NL, Mood NL Results Lab Laboratory Tests Test 11/14/16 07:21 Range/Units Magnesium Level 2.0 1.8-2.4 MG/DL Phosphorus Level 2.8 2.3-4.7 MG/DL A/P-Cardiology Admission Diagnosis Acute respiratory failure Laminectomy Hypertension Chest pain Assessment/Plan Status post acute respiratory failure, better at this time, CO2 narcosis, reporting improvement, awake, cooperative. Continue to monitor. Headache, numbness and weakness in the upper extremity, probably secondary to the spinal stenosis, status post C2-7 laminectomy, procedure done on November 06, 2016. Patient reporting some improvement. Chest pain nonspecific etiology, seen for episode of chest pain in October 2016 , had an exercise stress echo, able to exercise for 9 minutes on Narendra protocol , no ischemic changes. Hypertension, status post admission for hypertensive emergency early in October , continues to be mildly elevated. I will add Norvasc 5mg and continue to monitor BP/HR, History of tobaccoism, chewing tobacco. Hyperlipidemia. I will sign off at this point, reconsult if needed. Clinical Quality Measures DVT/VTE Risk/Contraindication: Risk Factor Score Per Nursin RFS Level Per Nursing on Admit: 1=Low/No VTE PPX Stroke: Date of last known well: Nov 05, 2016 Time of last known well: 12:00 DINAH JOSE MD Nov 14, 2016 08:12
[2016-11-14] MEDS ORDERED: amLODIPine 5 MG (NORVASC) TAB PO NR (09:30)
[2016-11-14] MEDS: lisINopril 20 MG (ZESTRIL) TAB PO SCH (09:33)
[2016-11-14] MEDS: SENNA W/DOCUSATE (SENOKOT S) TABLET PO SCH (09:33)
[2016-11-14] MEDS: amLODIPine 5 MG (NORVASC) TAB PO SCH (09:33)
[2016-11-14] MEDS: ASPIRIN E.C. 325 MG (ECOTRIN) TABLET PO SCH (09:33)
[2016-11-14] MEDS: oxyCODONE/APAP 7.5-325 MG (PERCOCET 7.5) TABLET PO PRN (09:34)
[2016-11-14] MEDS: ENOXAPARIN 40 MG/0.4 ML (LOVENOX) SYR SC SCH (09:34)
[2016-11-14] MEDS: LEVOFLOXACIN 750 MG TAB (LEVAQUIN) PO SCH (10:04)
[2016-11-14] MEDS ORDERED: AMLO10TA2 PO (11:19)
--- NOTE | 2016-11-14 11:22 | Discharge Inst-Complex ---
PDI Med Rec & Follow Up Appt. New Medications: Amlodipine Besylate (Amlodipine Besylate) 10 Mg Tablet 10 MG PO DAILY PT TO STOP AMLODIPINE 5MG AND START ON AMLODIPINE 10MG DAILY #30 Ref 3 TAB Sennosides/Docusate Sodium (Senna S Tablet) 1 Each Tablet 1 EACH PO BID #60 TAB Aspirin (Aspirin EC) 325 Mg Tablet. 325 MG PO DAILY #30 TAB Oxycodone HCl/Acetaminophen (Oxycodone-Acetaminophen 10-325) 1 Each Tablet 1-2 TAB PO Q4HR PRN MODERATE PAIN #45 TAB Continued Medications: Lisinopril (Lisinopril) 20 Mg Tablet 20 MG PO DAILY TAB Nebivolol HCl (Bystolic) 10 Mg Tab 10 MG PO HS TAB Pantoprazole Sodium (Protonix) 40 Mg Tablet.dr 40 MG PO BID Take protonix 40mg twice a day for 2 weeks and then once a day after that. #60 Ref 3 TAB Pitavastatin Calcium (Livalo) 2 Mg Tablet 1 MG PO DAILY TAKES 1/2 (2MG) TABLET TAB Sucralfate (Carafate) 1 Gm Tablet 1 GM PO QID #120 TAB Discontinued Medications: Naproxen (Naproxen) 500 Mg Tablet 500 MG PO BID PRN HEADACHE TAB Prescription: Transmitted to Pharmacy Patient Instructions: CONTACT SURGEON FOR FOLLOW UP PLAN FOLLOW UP WITH [facility] IN 10 DAYS Activity, Diet and PDI Resume Normal Activity: No Discharge Diet: Low Sodium Diet Drink 6-8 Glasses of Fluid/Day: Yes Driving Instructions: No Driving/Refer to Symptoms to Reoprt to : Appetite Changes, Constipation(Persistant), Fever Over 101 Degrees F, Pain/Pressure in Chest, Diarrhea(Persistant), Nausea/ Vomiting, Shortness of Breath Comment: CONTACT SURGEON FOR FURTHER DRESSING/WOUND CARE RECOMMENDATIONS For Problems or Questions: Contact Your Physician Infection Signs and Symptoms: Increased Redness, Foul Odor of Wound, Increased Drainage, Skin Itchy or Has a Rash, Increased Swelling, Temperature Above 101 F Operative Area Clean and Dry: Keep Incision Clean/Dry CRYSTAL BESS MD Nov 14, 2016 11:22
--- NOTE | 2016-11-14 11:25 | Discharge Summary ---
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 HE PRESENTED TO THE HOSPITAL WITH HEADACHE, VISUAL CHANGES, LEFT ARM NUMBNESS. HE STATES THAT HE WAS FEELING GOOD, TAKING HIS BLOOD PRESSURE MEDICATIONS DIRECTED SINCE HIS RECENT HOSPITALIZATION WITH HYPERTENSIVE URGENCY. HE REPORTS THAT IT STARTED WITH VISUAL ABNORMALITY THIS AFTERNOON, LOST HIS CENTRAL VISION, THEN HIS LEFT LATERAL VISION, AND THEN STARTED TO HAVE SOME LEFT ARM NUMBNESS AND A HEADACHE. THE NUMBNESS RESOLVED FAIRLY QUICKLY, BUT HIS HEADACHE REMAINED. HE REPORTS THAT HE HAS HISTORY OF HEADACHES, MIGRAINES/CLUSTER HEADACHES. Discharge Summary Discharge Physical Examination Allergies: Coded Allergies: codeine (Verified Allergy, Unknown, 10/22/16) tramadol (Verified Allergy, Unknown, 10/21/16) Vitals & I&Os General Appearance: Alert, Oriented X3, Cooperative, Mild Distress HEENT: Atraumatic, PERRLA Respiratory: Clear to Auscultation, Normal Air Movement Cardiovascular: Regular Rate, Normal S1, Normal S2, No Murmurs Abdominal: Normal Bowel Sounds, Soft, No Tenderness, No Hepatosplenomegaly, No Masses Extremities: No Clubbing, No Cyanosis, No Edema, Normal Pulses, No Tenderness/ Swelling Skin: No Rashes, No Breakdown, No Significant Lesion Neuro: Normal Gait, Normal Speech, Strength at 5/5 X4 Ext, Normal Tone, Sensation Intact Psych/Mental Status: Mental Status NL, Mood NL Hospital Course ACUTE RESPIRATORY FAILURE FLUID OVERLOAD SEPSIS BY CRITERIA LEFT LOWER LOBE PNEUMONIA MIGRAINE HEADACHE HYPERTENSION ANXIETY 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 CEVALLOS'S RECOMMENDATIONS. LEFT LOWER LOBE PNEUMONIA - SEPSIS BY CRITERIA - STARTED ON HOSPITAL ACQUIRED PNEUMONIA PROTOCOL, WILL NOT START ON SEPSIS PROTOCOL DUE TO PT HAVING ACUTE FLUID OVERLOAD AND PUSHING TOO MUCH FLUID WOULD LEAD TO WORSENING ILLNESS OF PATIENT. RESPIRATORY FAILURE - PT DETERIORATED YESTERDAY IN THE ICU - WAS PLACED ON VENT - EXTUBATED THIS MORNING AT [address] DEGROOT. HYPERTENSION -RESTARTED HOME MEDS. C2/3 COMPRESSION - DEFER TO DR. RICHTER - MUSCLE SPASMS -SCHEDULE VALIUM THREE TIMES DAILY - DECREASE DOSE TO 2MG WHEN TAKING PO AND PRN PAIN MEDICATION DOSE DECREASED WELL BY DR. DEGROOT. HYPOPHOSPHATEMIA, HYPOMAGNESEMIA - REPLACEMENT BY PROTOCOL. ANEMIA - MONITOR H AND H. Pending Labs Discharge Instructions to patient/family Please see electonic discharge instructions given to patient. Discharge Medications Reviewed and agree with Discharge Medication list on patient's Discharge Instruction sheet Clinical Quality Measures DVT/VTE Risk/Contraindication: Risk Factor Score Per Nursin RFS Level Per Nursing on Admit: 1=Low/No VTE PPX Stroke: Date of last known well: Nov 05, 2016 Time of last known well: 12:00 CRYSTAL BESS MD Nov 14, 2016 11:25
== END 2016-11-14 11:37 | disposition home or self-care (01) | DRG 28 ==
LOC: EDUNIT# 13:49 → ER 13:50 → 4TH 15:59 → OBSVTOIN 15:59 → ICU 11-10 09:00 → 4TH 11-12 16:30
PROVIDERS: ADMIT Family Medicine; ATTEND Family Medicine
PROC: 0RG4071 Fusion of Cervicothoracic Vertebral Joint with Autologous Tissue Substitute, Posterior Approach, Posterior Column, Open Approach (ICD-10-PCS; 2016-11-06)
PROC: 0RG6071 Fusion of Thoracic Vertebral Joint with Autologous Tissue Substitute, Posterior Approach, Posterior Column, Open Approach (ICD-10-PCS; 2016-11-06)
PROC: 0RG2071 Fusion of 2 or more Cervical Vertebral Joints with Autologous Tissue Substitute, Posterior Approach, Posterior Column, Open Approach (ICD-10-PCS; principal; 2016-11-06 13:44)
PROC: 5A1935Z Respiratory Ventilation, Less than 24 Consecutive Hours (ICD-10-PCS; 2016-11-10)
DX: G45.9 Transient cerebral ischemic attack, unspecified (principal); M47.12 Other spondylosis with myelopathy, cervical region; G43.909 Migraine, unspecified, not intractable, without status migrainosus; A41.9 Sepsis, unspecified organism; R65.20 Severe sepsis without septic shock; J96.00 Acute respiratory failure, unspecified whether with hypoxia or hypercapnia; J18.9 Pneumonia, unspecified organism; E87.70 Fluid overload, unspecified; E83.39 Other disorders of phosphorus metabolism; E83.42 Hypomagnesemia; D64.9 Anemia, unspecified; J81.1 Chronic pulmonary edema; J98.11 Atelectasis; G47.33 Obstructive sleep apnea (adult) (pediatric); I10 Essential (primary) hypertension; K21.9 Gastro-esophageal reflux disease without esophagitis; F41.9 Anxiety disorder, unspecified; E78.5 Hyperlipidemia, unspecified; Z87.891 Personal history of nicotine dependence
CPT/HCPCS: 36415; 36569; 70450; 70496; 70498; 70553; 71010; 72141; 76937; 80053; 80202; 81000; 82805; 82962; 83605; 83735; 83880; 84100; 85025; 85027; 85610; 87040; 87070; 87081; 87205; 93005; 93880; 93970; 94002; 94003; 94640; 94660; 94664; 94760; 94799; 96374; 96375

== ENCOUNTER 2016-12-04 12:05 | Outpatient (RCR) | payer BC ==
[~2016-12-04 12:05] MED LIST changes: +AMLO10TA2 PO; +ASPI325T32 PO; +DIAZ5TAB3 PO; +NAPR500T3 PO; +OXC20TCR PO; +OXYC-465 PO; +SENN-1 PO
== END 2016-12-04 16:00 | disposition home or self-care (01) ==
LOC: WOUNDCARE 12:05
PROVIDERS: ATTEND Nurse Practitioner
DX: T81.31XA Disruption of external operation (surgical) wound, not elsewhere classified, initial encounter (principal)
CPT/HCPCS: 99213

== ENCOUNTER 2016-12-11 13:37 | Inpatient (IN) | payer BC ==
[~2016-12-11] VITALS: Ht 175.3 cm; Wt 104.3 kg
[2016-12-11] MEDS: LACTATED RINGERS 1,000 ML IV PRN ×2 (14:10→18:40)
[2016-12-11] MEDS ORDERED: VANCOMYCIN 2000 MG/NS 500 ML IVPB IV ONE ×2 (14:15)
[2016-12-11] MEDS ORDERED: FAMOTIDINE 20MG/2ML IV (PEPCID) IV ONE (14:15)
[2016-12-11] MEDS ORDERED: MIDAZOLAM 2 MG/2 ML (VERSED) VIAL ONE (14:29)
[2016-12-11] MEDS ORDERED: fentaNYL INJECTION 100 MCG/2 ML AMP ONE (14:29)
[2016-12-11] MEDS ORDERED: LIDOCAINE PF 2% 10 ML (XYLOCAINE) AMP ONE (14:33)
[2016-12-11] MEDS ORDERED: LACTATED RINGERS 1,000 ML IV ONE ×2 (14:33→18:55)
[2016-12-11] MEDS ORDERED: ONDANSETRON 4 MG/2 ML (SDV) Z0FRAN ONE (14:33)
[2016-12-11] MEDS ORDERED: ROCURONIUM 50 MG/5 ML (ZEMURON) VIAL IV ONE (14:33)
[2016-12-11] MEDS ORDERED: DEXAMETHASONE PF 10 MG/ML (DECADRON) VIAL ONE (14:33)
[2016-12-11] MEDS ORDERED: proPOfol 200 MG/20 ML (DIPRIVAN) VIAL IV ONE (14:33)
[2016-12-11 15:04] VITALS: BP 119/62
[2016-12-11] MEDS ORDERED: morphine INJ 10 MG/ML 1ML (SYR OR VIAL) ONE (15:49)
[2016-12-11] MEDS ORDERED: morphine INJ 10 MG/ML 1ML (SYR OR VIAL) IM PRN (18:00)
[2016-12-11] MEDS ORDERED: ONDANSETRON 4 MG/2 ML (SDV) Z0FRAN IV PRN (18:00)
[2016-12-11] MEDS ORDERED: PROMETHAZINE 25 MG (PHENERGAN) TAB PO PRN (18:00)
[2016-12-11] MEDS ORDERED: ACETAMINOPHEN 325 MG TABLET/CAPLET (TYLENOL) PO PRN (18:00)
[2016-12-11] MEDS ORDERED: GENTAMICIN 40 MG/ML 2 ML INJ SDV ONE (18:08)
[2016-12-11] MEDS ORDERED: NEOSTIGMINE (BLOXIVERZ ) 1 MG/1ML 10 ML VIAL ONE (18:39)
[2016-12-11] MEDS ORDERED: GLYCOPYRROLATE 0.2 MG/ML (ROBINUL) 2 ML VIAL ONE (18:39)
--- NOTE | 2016-12-11 18:49 | Progress Note-Post Operative ---
Post-Operative Progess Note Surgeon (s)/Office Inspector (s) Surgeon TONNY RICHTER MD Office Inspector: None Pre-Operative Diagnosis wound drainage Post-Operative Diagnosis Posterior Cervical Wound Infection Post-Op Procedure Note Date of Procedure: Dec 11, 2016 Name of Procedure Performed: Irrigation and Debridement of Posterior Cervical Wound Description of the Procedure: Wound Irrigated and debrided Findings of the Procedure Wound dehiscence Anesthesia Type GETA Estimated blood loss (mL): 250 Packing: Kerlix/Betadine Specimen(s) collected/removed Cultures TONNY RICHTER MD Dec 11, 2016 6:49 pm
[2016-12-11] MEDS ORDERED: SEVOFLURANE (ULTANE) 15 ML INHAL SOLN ONE (18:57)
[2016-12-11] MEDS ORDERED: VANCOMYCIN INJECTION 1,000 MG in NS (IVPB) 250 ML IV SCH (19:00)
[2016-12-11] MEDS ORDERED: morphine INJ 10 MG/ML 1ML (SYR OR VIAL) IVP PRN (19:15)
[2016-12-11] MEDS ORDERED: ONDANSETRON 4 MG/2 ML (SDV) Z0FRAN IVP PRN (19:15)
[2016-12-11] MEDS ORDERED: VANCOMYCIN 2,500 MG/NS 500 ML IVPB IV SCH ×2 (20:30)
[2016-12-11 20:37] VITALS: BP 106/65
[2016-12-11] MEDS ORDERED: CATHETER FLUSH 10 ML SYR IV PRN (20:45)
[2016-12-11] MEDS: SENNOSIDES 8.6 MG (SENOKOT) TAB PO SCH (21:06)
[2016-12-11] MEDS: FAMOTIDINE 20 MG (PEPCID) TABLET PO SCH (21:06)
[2016-12-11] MEDS: oxyCODONE/APAP 5/325MG (PERCOCET 5) TABLET PO PRN (22:08)
[2016-12-11] MEDS: ceFAZolin INJECTION 1,000 MG in NS (IVPB) 50 ML IV SCH (22:12)
[2016-12-12] VITALS (7 sets, daily range): BP systolic 113–124; BP diastolic 52–74
--- NOTE | 2016-12-12 04:51 | Progress Note (SOAP) ---
Subjective Subjective/Events-last exam Feels fine, pain much better, no complaints currently. Objective Exam Vital Signs Date Time Temp Pulse Resp B/P (MAP) Pulse Ox O2 Delivery O2 Flow Rate FiO2 12/12/16 00:00 95.9 93 18 120/61 94 Nasal Cannula 2.00 12/11/16 20:37 97.1 75 19 106/65 96 Room Air 12/11/16 20:36 3.00 12/11/16 20:05 3.00 12/11/16 15:04 98.2 66 18 119/62 97 Room Air I & O 12/12/16 07:00 Intake Total 3070 ml Balance 3070 ml Capillary Refill : General Appearance: No Apparent Distress Neck: Limited Range of Motion, Other (Dressing in place) Respiratory: No Accessory Muscle Use, No Respiratory Distress Cardiovascular: Regular Rate, Rhythm Assessment/Plan Assessment/Plan Assess & Plan/Chief Complaint Posterior Cervical Wound Infection/Dehiscence Plan: PICC line Wound Vac 6 weeks of IV ABX Clinical Quality Measures DVT/VTE Risk/Contraindication: Risk Factor Score Per Nursin RFS Level Per Nursing on Admit: 2=Moderate TONNY RICHTER MD Dec 12, 2016 4:51 am
[2016-12-12] MEDS: FAMOTIDINE 20 MG (PEPCID) TABLET PO SCH ×2 (05:24→18:39)
[2016-12-12] MEDS: ceFAZolin INJECTION 1,000 MG in NS (IVPB) 50 ML IV SCH ×2 (05:24→14:12)
[2016-12-12] MEDS: MULTIVIT W/MINERALS TAB (THERAGRAN M) PO SCH (05:24)
[2016-12-12 05:56] LABS: BASOPHILS % (AUTO) 0 % (0-10); EOSINOPHILS % (AUTO) 0 % (0-10); LYMPHOCYTES # (AUTO) 0.6 X 10^3 (1.0-4.0); LYMPHOCYTES % (AUTO) 12 % (12-44); MEAN CORPUSCULAR HEMOGLOBIN 28 PG (25-34); MEAN CORPUSCULAR HGB CONC 34 G/DL (32-36); MEAN CORPUSCULAR VOLUME 83 FL (80-99); MEAN PLATELET VOLUME 10.8 FL (7.4-10.4); MONOCYTES # (AUTO) 0.1 X 10^3 (0.0-1.0); MONOCYTES % (AUTO) 1 % (0-12); NEUTROPHILS # (AUTO) 4.6 X 10^3 (1.8-7.8); NEUTROPHILS % (AUTO) 87 % (42-75); PLATELET COUNT 227 10^3/uL (130-400); RED BLOOD COUNT 4.45 10^6/uL (4.35-5.85); RED CELL DISTRIBUTION WIDTH 12.4 % (10.0-14.5); WHITE BLOOD COUNT 5.3 10^3/uL (4.3-11.0)
[2016-12-12 06:31] LABS: ERYTHROCYTE SEDIMENTATION RATE 13 MM/HR (0-30)
[2016-12-12] MEDS ORDERED: VANCOMYCIN 1500 MG/NS 500 ML IVPB IV SCH ×2 (07:00)
[2016-12-12] MEDS: SENNOSIDES 8.6 MG (SENOKOT) TAB PO SCH ×2 (08:23→21:38)
[2016-12-12] MEDS: oxyCODONE/APAP 5/325MG (PERCOCET 5) TABLET PO PRN (08:23)
[2016-12-12 08:44] LABS: ALANINE AMINOTRANSFERASE 24 U/L (0-55); ALBUMIN 3.7 G/DL (3.2-4.5); ANION GAP 8 MMOL/L (5-14); ASPARTATE AMINO TRANSFERASE 18 U/L (5-34); BILIRUBIN,TOTAL 1.6 MG/DL (0.1-1.0); BLOOD UREA NITROGEN 15 MG/DL (7-18); BUN/CREATININE RATIO 15; CALCIUM 8.9 MG/DL (8.5-10.1); CARBON DIOXIDE 22 MMOL/L (21-32); CHLORIDE 102 MMOL/L (98-107); CREATININE SERUM 0.99 MG/DL (0.60-1.30); GFR ESTIMATED > 60; GLUCOSE 230 MG/DL (70-105); POTASSIUM 4.4 MMOL/L (3.6-5.0); SODIUM 132 MMOL/L (135-145); TOTAL PROTEIN 6.5 G/DL (6.4-8.2)
[2016-12-12] MEDS: CEFEPIME INJECTION 2,000 MG in NS (IVPB) 50 ML IV SCH ×2 (09:19→21:38)
--- NOTE | 2016-12-12 09:22 | Diagnostic Imaging Report ---
Portable upright radiograph of the chest. INDICATION: PICC line placement. Comparison with 11/13/16. FINDINGS: There is cervical spine fusion hardware in place. A PICC line is also seen with the visualized tip at the cavoatrial junction. The heart size is mildly enlarged. There is left basilar mild opacity likely related to atelectasis. No effusion or pneumothorax. There is suggestion of a small hiatal hernia. The mediastinum and john appear unremarkable. IMPRESSION: Mild left basilar atelectasis. Dictated by: Dictated on workstation # [id number]
[2016-12-12] MEDS ORDERED: DIAZ5TAB3 PO (09:52)
[2016-12-12] MEDS ORDERED: AMLO10TA2 PO (09:52)
[2016-12-12] MEDS ORDERED: OXYC-202 PO (09:52)
[2016-12-12] MEDS ORDERED: ASPI-808 PO (09:54)
[2016-12-12] MEDS ORDERED: PITA2TAB2 PO (09:56)
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
--- NOTE | 2016-12-12 11:04 | OPERATIVE REPORT ---
PROCEDURE PHYSICIAN: TONNY RICHTER DATE OF PROCEDURE: 12/11/2016 PREOPERATIVE DIAGNOSIS: Posterior cervical wound dehiscence. POSTOPERATIVE DIAGNOSIS: Posterior cervical wound dehiscence with infection superficial and deep. PROCEDURE PERFORMED: Irrigation and debridement of posterior cervical wound superficial and deep DATE AND TIME OF SURGERY: Please see anesthesia record. SURGEON: Karyna. ANESTHESIA: General endotracheal. ESTIMATED BLOOD LOSS: Minimal. IV FLUIDS: Please see anesthesia record. ANTIBIOTICS: Vancomycin. COMPLICATIONS: None. INDICATION OF THE PROCEDURE: Mr. Mc is a 51-year-old male with previous posterior cervical fusion. He has developed breakdown of his wound and drainage. Risk, benefits and alternatives were discussed and he elects proceed operatively. DESCRIPTION OF PROCEDURE: The patient was taken to the holding area and brought back to the operating suite. After adequate induction general anesthetic, preoperative antibiotics, he was turned prone on Bucky table. Careful padding to all extremities. He was sterilely prepped and draped. A posterior cervical wound incision was opened and serosanguineous fluid and granulation tissue were encountered. The deep wound had dehisced which is likely what led to the wound dehiscing. The Ethibond sutures were removed and the hardware was exposed. It was irrigated with pulse lavage irrigation. The subcutaneous tissues were scraped and cleaned. Cultures were obtained. Once the wound was adequately debrided and irrigated, it was closed; the deep layer was closed with number 1 PDS absorbable suture and then the wound was packed and patient transferred to the recovery room in stable condition having tolerated the procedure well. Job ID: [id number] Dictated Date: 12/11/2016 18:54:54 [employer] Supervisor Date: 12/12/2016 10:54:45 / derrick
--- NOTE | 2016-12-12 13:51 | Physical Therapy Progress Note ---
Therapy Progress Note Patient is up independently in room and hallway without difficulty. Patient voices no concerns or c/o at this time. No skilled PT indicated. 1 visit ANABELL FLEMING PT Dec 12, 2016 13:51
--- NOTE | 2016-12-12 14:11 | Occupational Therapy Eval ---
OT Evaluation-General/PLF Medical Diagnosis Admission Date Dec 11, 2016 at 13:47 Onset Date: Dec 11, 2016 Therapy Diagnosis Therapy Diagnosis: debility Height/Weight Height (Feet): 5 Height (Inches): 9.00 Weight (Pounds): 230 Weight (Ounces): 0.0 Precautions Precautions/Isolations: Standard Precautions Safety Interventions: Reorient-PRN Referral Physician: Karyna Medical History Pertinent Medical History: GERD, HTN Additional Medical History high cholesterol, sleep apnea, headaches/migraines, Current History Pt admitted secondary to cervical Wound Infection/Dehiscence is now s/p Irrigation and Debridement of Posterior Cervical Wound. Pt has wound vac in place. Reviewed History: Yes Social History Home: Single Level Current Living Status: Children Entry Into Home: Stairs Without Railing Steps Into Home: 2 ADL-Prior Level of Function ADL PLOF Comments Pt states he has been completing ADLs independently. DME/Equipment: Bath Chair, Grab Bars, Tub/Shower DME/Equipment Comments hospital bed OT Current Status Subjective Pt agreeable to therapy. No c/o pain. Mental Status/Objective Patient Orientation: Person, Place, Time, Situation Attachments: Other-See Comments (wound vac) Current Upper Extremity ROM Grossly WFL Upper Extremity Coordination Intact Upper Extremity Strength Not formally assessed, but appears to be functional ADL-Treatment ADL-Current Pt up ad leelee in room when therapist arrives. Pt demonstrates ability to perform transfers safely without AD. Pt demonstrates ability to doff/don socks independently, states he was able to dress without assistance. Pt states he is at PLOF and has no questions or concerns regarding ADLs or home safety. Pt in bed with needs met after session. Functional [place] Measure 0=Not Assessed/NA 4=Minimal Assistance 1=Total Assistance 5=Supervision or Setup 2=Maximal Assistance 6=Modified [place] 3=Moderate Assistance 7=Complete IndependenceIRFPAI Quality Coding Scale 6 Independent with activity with or without an assistive device 5 Patient requires set up or clean up by helper. Patient completes activity by themselves 4 Supervision or touching assist (CGA). [place] provide cues , steadying assist 3 The helper provides less than half the effort to complete the activity 2 The helper provides more than half the effort to complete the activity 1 Dependent. The helper does all the effort to complete an activity 7 Patient refused to complete or attempt activity 9 The patient did not perform the activity before the current illness or injury 88 Not attempted due to Medical conditions or safety concerns Eating (FIM): 7 (Pt reports no difficulty feeding self, managing containers, or cutting food.) Lower Body Dressing (FIM): 6 (Pt donned/doffed socks, states he donned pants without assistance.) Toilet/Commode Transfer (FIM): 6 OT Education/Plan Problem List/Assessment Assessment: No Skilled OT Needs ID'd Pt is up ad leelee in room and is completing ADLs and transfers safely and independently. No LOB noted. Pt has no questions or concerns regarding ADLs or home safety. No skilled OT intervention indicated at this time. D/C OT. Discharge Recommendations Plan/Recommendations: Discontinue OT Treatment Plan/Plan of Care Treatment,Training & Education: No Treatment Duration: Dec 12, 2016 (Evaluation only) Visits Per Week: 1 visit (evaluation only) Rehab Potential: Good Time/GCodes Start Time: 13:05 Stop Time: 13:25 Total Time Billed (hr/min): 20 Billed Treatment Time 1 visit, SANJU(20minutes) INDIO MARTINEZ OT Dec 12, 2016 14:11
[2016-12-12] MEDS: VANCOMYCIN 1500 MG/NS 500 ML IVPB IV SCH ×2 (18:39)
[2016-12-13] MEDS: FAMOTIDINE 20 MG (PEPCID) TABLET PO SCH ×2 (06:01→18:09)
[2016-12-13] MEDS: MULTIVIT W/MINERALS TAB (THERAGRAN M) PO SCH (06:03)
[2016-12-13 06:12] LABS: MEAN PLATELET VOLUME 10.7 FL (7.4-10.4); RED BLOOD COUNT 4.18 10^6/uL (4.35-5.85); RED CELL DISTRIBUTION WIDTH 12.5 % (10.0-14.5); WHITE BLOOD COUNT 10.5 10^3/uL (4.3-11.0)
[2016-12-13 06:29] LABS: ANION GAP 10 MMOL/L (5-14); BLOOD UREA NITROGEN 12 MG/DL (7-18); BUN/CREATININE RATIO 13; CALCIUM 8.5 MG/DL (8.5-10.1); CARBON DIOXIDE 23 MMOL/L (21-32); CHLORIDE 108 MMOL/L (98-107); CREATININE SERUM 0.92 MG/DL (0.60-1.30); GFR ESTIMATED > 60; GLUCOSE 120 MG/DL (70-105); POTASSIUM 4.4 MMOL/L (3.6-5.0); SODIUM 141 MMOL/L (135-145)
--- NOTE | 2016-12-13 07:06 | Progress Note (SOAP) ---
Subjective Subjective/Events-last exam Pt doing good. PICC line and wound vac in place. No concerns. Objective Exam Vital Signs Date Time Temp Pulse Resp B/P (MAP) Pulse Ox O2 Delivery O2 Flow Rate FiO2 12/12/16 23:20 96.9 80 22 113/52 93 Room Air 12/12/16 19:25 96.9 76 24 124/69 95 Room Air 12/12/16 15:50 96.5 66 20 117/68 96 Room Air 12/12/16 12:00 97.7 82 20 118/74 95 Room Air 12/12/16 08:00 97.0 85 20 119/65 97 Nasal Cannula 2.00 I & O 12/13/16 07:00 Intake Total 1665 ml Output Total 2300 ml Balance -635 ml Capillary Refill : General Appearance: No Apparent Distress, WD/WN Respiratory: No Accessory Muscle Use, No Respiratory Distress Extremity: Normal Inspection, Normal Range of Motion Neurologic/Psychiatric: Alert, Oriented x3, No Motor/Sensory Deficits Skin: Normal Color, Warm/Dry Results Lab Laboratory Tests 12/13/16 06:00: White Blood Count 10.5, Red Blood Count 4.18L, Hemoglobin 11.4L, Hematocrit 36L , Mean Corpuscular Volume 85, Mean Corpuscular Hemoglobin 27, Mean Corpuscular Hemoglobin Concent 32, Red Cell Distribution Width 12.5, Platelet Count 213, Mean Platelet Volume 10.7H, Sodium Level 141, Potassium Level 4.4, Chloride Level 108H, Carbon Dioxide Level 23, Anion Gap 10, Blood Urea Nitrogen 12, Creatinine 0.92, Estimat Glomerular Filtration Rate > 60, BUN/Creatinine Ratio 13, Glucose Level 120H, Calcium Level 8.5, Vancomycin Level Trough 12.1 Microbiology 12/11/16 MRSA Screen - Final, Complete MRSA not isolated 12/11/16 Gram Stain - Final, Resulted 12/11/16 Anaerobic Culture, Resulted Pending 12/11/16 Surgical Culture - Preliminary, Resulted No growth Assessment/Plan Assessment/Plan Assess & Plan/Chief Complaint Posterior Cervical Wound Infection/Dehiscence Continue current plan. Work on setting up home health for IV antibiotic treatments and wound vac maintenance. Clinical Quality Measures DVT/VTE Risk/Contraindication: Risk Factor Score Per Nursin RFS Level Per Nursing on Admit: 2=Moderate DWAYNE KAUR Dec 13, 2016 07:06
[2016-12-13] MEDS: VANCOMYCIN 1500 MG/NS 500 ML IVPB IV SCH ×4 (07:10→18:09)
[2016-12-13 07:55] VITALS: BP 128/67
[2016-12-13] MEDS: SENNOSIDES 8.6 MG (SENOKOT) TAB PO SCH ×2 (08:08→21:06)
[2016-12-13] MEDS: DOCUSATE SODIUM 100 MG (COLACE) CAP PO PRN (08:08)
[2016-12-13] MEDS: CEFEPIME INJECTION 2,000 MG in NS (IVPB) 50 ML IV SCH ×2 (08:09→21:06)
--- NOTE | 2016-12-13 08:37 | Progress Note (SOAP) ---
Subjective Subjective 51yo M - with cervical infection- no overnight events. Pt has no complaints or concerns today. He is aware of the plan of finding the culture results and being on IV abx for 6 weeks. No questions. Review of Systems General: No Chills, No Night Sweats HEENT: No Head Aches Pulmonary: No Dyspnea, No Cough Cardiovascular: No: Chest Pain Gastrointestinal: No: Nausea, Vomiting Genitourinary: No Dysuria Musculoskeletal: neck pain Neurological: No: Weakness Objective Exam Vital Signs Vital Signs Date Time Temp Pulse Resp B/P (MAP) Pulse Ox O2 Delivery O2 Flow Rate FiO2 12/13/16 07:55 98.0 73 18 128/67 96 Room Air 12/12/16 23:20 96.9 80 22 113/52 93 Room Air 12/12/16 19:25 96.9 76 24 124/69 95 Room Air 12/12/16 15:50 96.5 66 20 117/68 96 Room Air I & O 12/13/16 07:00 Intake Total 2430 ml Output Total 2600 ml Balance -170 ml General Appearance: No Apparent Distress, WD/WN Neck: Limited Range of Motion, Other (Dressing in place) Respiratory: No Accessory Muscle Use, No Respiratory Distress Cardiovascular: Regular Rate, Rhythm Gastrointestinal: Normal Bowel Sounds, Non Tender, Soft Extremity: Normal Inspection, Normal Range of Motion, No Pedal Edema Neurologic/Psychiatric: Alert, Oriented x3, No Motor/Sensory Deficits Skin: Normal Color, Warm/Dry Results Lab Laboratory Tests 12/13/16 06:00: White Blood Count 10.5, Red Blood Count 4.18L, Hemoglobin 11.4L, Hematocrit 36L , Mean Corpuscular Volume 85, Mean Corpuscular Hemoglobin 27, Mean Corpuscular Hemoglobin Concent 32, Red Cell Distribution Width 12.5, Platelet Count 213, Mean Platelet Volume 10.7H, Sodium Level 141, Potassium Level 4.4, Chloride Level 108H, Carbon Dioxide Level 23, Anion Gap 10, Blood Urea Nitrogen 12, Creatinine 0.92, Estimat Glomerular Filtration Rate > 60, BUN/Creatinine Ratio 13, Glucose Level 120H, Calcium Level 8.5, Vancomycin Level Trough 12.1 Microbiology 12/11/16 MRSA Screen - Final, Complete MRSA not isolated 12/11/16 Gram Stain - Final, Resulted 12/11/16 Anaerobic Culture, Resulted Pending 12/11/16 Surgical Culture - Preliminary, Resulted No growth Assessment/Plan Assessment/Plan Assessment/Plan 51yo M Posterior Cervical Wound Infection/Dehiscence -on vancomycin, cefepime- awaiting cultures. -wound care consulted -has oxycodone/apap, morphine for pain management. HTN-normotensive- continue to monitor Dispo: Orthopedics - is having CM work on home IV abx- x 6 weeks. Awaiting cultures for final abx determination. Problems: Clinical Quality Measures DVT/VTE Risk/Contraindication: Risk Factor Score Per Nursin RFS Level Per Nursing on Admit: 2=Moderate MIRANDA MCCULLOUGH MD Dec 13, 2016 08:37
[2016-12-13] MEDS: oxyCODONE/APAP 5/325MG (PERCOCET 5) TABLET PO PRN (13:59)
[2016-12-13 15:25] VITALS: BP 128/71
[2016-12-13 22:30] VITALS: BP 136/68
[2016-12-14] MEDS: MULTIVIT W/MINERALS TAB (THERAGRAN M) PO SCH (06:15)
[2016-12-14] MEDS: FAMOTIDINE 20 MG (PEPCID) TABLET PO SCH ×2 (06:15→18:00)
[2016-12-14] MEDS: VANCOMYCIN 1500 MG/NS 500 ML IVPB IV SCH ×4 (06:15→18:00)
[2016-12-14 07:35] VITALS: BP 136/84
--- NOTE | 2016-12-14 07:45 | Progress Note (SOAP) ---
Subjective Subjective/Events-last exam POD #3, s/p I&D for posterior cervical wound dehiscence VSS No complaints Review of Systems General: No Chills Pulmonary: No Cough Genitourinary: No Frequency Musculoskeletal: neck pain Objective Exam Vital Signs Date Time Temp Pulse Resp B/P (MAP) Pulse Ox O2 Delivery O2 Flow Rate FiO2 12/13/16 22:30 98.3 68 24 136/68 94 Room Air 12/13/16 15:25 96.5 86 20 128/71 96 Room Air 12/13/16 07:55 98.0 73 18 128/67 96 Room Air I & O 12/14/16 07:00 Intake Total 3735 ml Output Total 1950 ml Balance 1785 ml Capillary Refill : General Appearance: No Apparent Distress Respiratory: No Accessory Muscle Use Cardiovascular: Regular Rate, Rhythm Extremity: Normal Capillary Refill, Normal Inspection Neurologic/Psychiatric: Alert, Oriented x3, Normal Mood/Affect Skin: Other (Wound Vac in place) Results Lab Microbiology 12/11/16 MRSA Screen - Final, Complete MRSA not isolated 12/11/16 Gram Stain - Final, Resulted 12/11/16 Anaerobic Culture - Preliminary, Resulted No growth /02/21 Surgical Culture - Preliminary, Resulted No growth Assessment/Plan Assessment/Plan Assess & Plan/Chief Complaint Final culture negative Will need IV antibiotics for 6 weeks, due to wound dehiscence and hardware being present Anticipate Home wound vac and antibiotic arrangements to be made tomorrow. Clinical Quality Measures DVT/VTE Risk/Contraindication: Risk Factor Score Per Nursin RFS Level Per Nursing on Admit: 2=Moderate MAURILIO SANABRIA Dec 14, 2016 07:45
[2016-12-14] MEDS: CEFEPIME INJECTION 2,000 MG in NS (IVPB) 50 ML IV SCH ×2 (08:43→20:15)
[2016-12-14] MEDS: SENNOSIDES 8.6 MG (SENOKOT) TAB PO SCH ×2 (08:43→19:51)
[2016-12-14] MEDS: DOCUSATE SODIUM 100 MG (COLACE) CAP PO PRN (08:46)
[2016-12-14 16:00] VITALS: BP 137/79
[2016-12-15] VITALS: BP 135/81
[2016-12-15] MEDS: VANCOMYCIN 1500 MG/NS 500 ML IVPB IV SCH ×4 (05:53→18:20)
[2016-12-15] MEDS: MULTIVIT W/MINERALS TAB (THERAGRAN M) PO SCH (05:53)
[2016-12-15] MEDS: FAMOTIDINE 20 MG (PEPCID) TABLET PO SCH ×2 (05:53→17:10)
[2016-12-15 06:08] LABS: MEAN PLATELET VOLUME 10.2 FL (7.4-10.4); RED BLOOD COUNT 4.42 10^6/uL (4.35-5.85); RED CELL DISTRIBUTION WIDTH 12.6 % (10.0-14.5); WHITE BLOOD COUNT 5.7 10^3/uL (4.3-11.0)
[2016-12-15 06:24] LABS: ANION GAP 9 MMOL/L (5-14); BLOOD UREA NITROGEN 8 MG/DL (7-18); BUN/CREATININE RATIO 10; CALCIUM 8.7 MG/DL (8.5-10.1); CARBON DIOXIDE 27 MMOL/L (21-32); CHLORIDE 104 MMOL/L (98-107); CREATININE SERUM 0.82 MG/DL (0.60-1.30); GFR ESTIMATED > 60; GLUCOSE 113 MG/DL (70-105); SODIUM 140 MMOL/L (135-145)
[2016-12-15] MEDS: CEFEPIME INJECTION 2,000 MG in NS (IVPB) 50 ML IV SCH ×2 (07:56→21:01)
[2016-12-15] MEDS: SENNOSIDES 8.6 MG (SENOKOT) TAB PO SCH ×2 (07:56→21:00)
[2016-12-15 08:00] VITALS: BP 145/85
[2016-12-15] MEDS: oxyCODONE/APAP 5/325MG (PERCOCET 5) TABLET PO PRN (08:01)
[2016-12-15] MEDS: ASPIRIN 325 MG (5 GR) TABLET PO SCH (09:20)
[2016-12-15] MEDS: lisINopril 20 MG (ZESTRIL) TAB PO SCH (09:20)
[2016-12-15] MEDS ORDERED: CEFE2FRO IV (12:04)
[2016-12-15] MEDS ORDERED: VANC1PLA9 IV (12:04)
[2016-12-15] MEDS: amLODIPine 10 MG (NORVASC) TAB PO SCH (13:06)
[2016-12-15 15:49] VITALS: BP 139/82
--- NOTE | 2016-12-15 16:00 | Progress Note (SOAP) ---
Subjective Subjective/Events-last exam Feeling better, no complaints. Objective Exam Vital Signs Date Time Temp Pulse Resp B/P (MAP) Pulse Ox O2 Delivery O2 Flow Rate FiO2 12/15/16 15:49 97.8 71 18 139/82 97 Room Air 12/15/16 08:00 97.9 73 20 145/85 96 Room Air 12/15/16 00:00 98.7 71 20 135/81 97 Room Air 12/14/16 16:00 98.5 77 18 137/79 98 Room Air I & O 12/15/16 07:00 Intake Total 3130 ml Output Total 3670 ml Balance -540 ml Capillary Refill : General Appearance: No Apparent Distress HEENT: PERRL/EOMI Cardiovascular: Regular Rate, Rhythm Neurologic/Psychiatric: Alert, Oriented x3, No Motor/Sensory Deficits Skin: Other (Wound Vac in place.) Results Lab Laboratory Tests 12/15/16 06:02: White Blood Count 5.7, Red Blood Count 4.42, Hemoglobin 12.2L, Hematocrit 37L, Mean Corpuscular Volume 84, Mean Corpuscular Hemoglobin 28, Mean Corpuscular Hemoglobin Concent 33, Red Cell Distribution Width 12.6, Platelet Count 210, Mean Platelet Volume 10.2, Sodium Level 140, Potassium Level 4.0, Chloride Level 104, Carbon Dioxide Level 27, Anion Gap 9, Blood Urea Nitrogen 8, Creatinine 0.82, Estimat Glomerular Filtration Rate > 60, BUN/Creatinine Ratio 10, Glucose Level 113H, Calcium Level 8.7 Microbiology 12/11/16 MRSA Screen - Final, Complete MRSA not isolated 12/11/16 Gram Stain - Final, Complete 12/11/16 Anaerobic Culture - Final, Complete No growth 12/11/16 Surgical Culture - Final, Complete No growth Assessment/Plan Assessment/Plan Assess & Plan/Chief Complaint Posterior Cervical Wound Infection/Dehiscence Plan: Cultures Negative Discussed with Dr Benjamin at [facility], willing to follow his Abx Plan D/C tomorrow with IV abx for 6 weeks with home health. Clinical Quality Measures DVT/VTE Risk/Contraindication: Risk Factor Score Per Nursin RFS Level Per Nursing on Admit: 2=Moderate TONNY RICHTER MD Dec 15, 2016 4:00 pm
[2016-12-15] MEDS ORDERED: NEBIVOLOL 5 MG TAB (BYSTOLIC) PO SCH (21:00)
--- NOTE | 2016-12-15 23:09 | Wound Care Progress Note ---
Subjective Subjective Subjective/Events-last exam 51 year old male s/p debridement, revision and closure of dehiscence of posterior cervical spinal operation. Currently having little pain. Wound is managed with a Wound VAC. We will be glad to follow-up in out-patient Wound Center to assist in management of NPWT. PMH: Hypertension, Sleep apnea. Objective Exam Last Set of Vital Signs Vital Signs Date Time Temp Pulse Resp B/P (MAP) Pulse Ox O2 Delivery O2 Flow Rate FiO2 12/15/16 15:49 97.8 71 18 139/82 97 Room Air 12/12/16 08:00 2.00 Capillary Refill : I&O Intake and Output 12/15/16 00:00 Intake Total 3730 ml Output Total 3770 ml Balance -40 ml Intake Oral 2650 ml IV Total 1080 ml Output Urine Total 3770 ml # Bowel Movements 1 General: Alert, No Acute Distress Skin: Other (Posterior cervical incision without inflammation, NPWT in place.) Results Lab Laboratory Tests 12/15/16 06:02: White Blood Count 5.7, Red Blood Count 4.42, Hemoglobin 12.2L, Hematocrit 37L, Mean Corpuscular Volume 84, Mean Corpuscular Hemoglobin 28, Mean Corpuscular Hemoglobin Concent 33, Red Cell Distribution Width 12.6, Platelet Count 210, Mean Platelet Volume 10.2, Sodium Level 140, Potassium Level 4.0, Chloride Level 104, Carbon Dioxide Level 27, Anion Gap 9, Blood Urea Nitrogen 8, Creatinine 0.82, Estimat Glomerular Filtration Rate > 60, BUN/Creatinine Ratio 10, Glucose Level 113H, Calcium Level 8.7 Microbiology 12/11/16 MRSA Screen - Final, Complete MRSA not isolated 12/11/16 Gram Stain - Final, Complete 12/11/16 Anaerobic Culture - Final, Complete No growth 12/11/16 Surgical Culture - Final, Complete No growth Assessment/Plan Assessment/Plan Assessment/Plan 1. S/P repair dehiscence posterior cervical incision, with Wound VAC. Plan: follow-up in out-patient Wound Center offered, if desired. RAJ GARCIA MD Dec 15, 2016 23:09
[2016-12-16] VITALS: BP 161/82
[2016-12-16] MEDS: FAMOTIDINE 20 MG (PEPCID) TABLET PO SCH (06:14)
[2016-12-16] MEDS: VANCOMYCIN 1500 MG/NS 500 ML IVPB IV SCH ×2 (06:14)
[2016-12-16] MEDS: MULTIVIT W/MINERALS TAB (THERAGRAN M) PO SCH (06:14)
--- NOTE | 2016-12-16 06:21 | Discharge Summary ---
Diagnosis/Chief Complaint Date of Admission Dec 11, 2016 at 1:47 pm Date of Discharge 12/16/2016 Admission Diagnosis Admission Diagnosis Cervical Wound Infection Discharge Diagnosis Cervical Wound Infection Discharge Summary Hospital Course Hospital Course Patient had his posterior cervical wound debrided and closed deep. Wound vac applied, IV Antibiotics begun, PICC line placed and readied for d/c home. Labs Laboratory Tests 12/15/16 06:02: Hemoglobin 12.2L, Hematocrit 37L, Glucose Level 113H Procedures Posterior Cervical Wound I&D. Discharge Physical Examination Allergies: Coded Allergies: codeine (Verified Allergy, Unknown, PT has had Hydromorphone & morphine in the past w/o issue, 12/11/16) tramadol (Verified Allergy, Unknown, 10/21/16) Vitals & I&Os Vital Signs Date Time Temp Pulse Resp B/P (MAP) Pulse Ox O2 Delivery O2 Flow Rate FiO2 12/16/16 00:00 98.9 74 20 161/82 98 Room Air 12/12/16 08:00 2.00 General Appearance: Alert, Oriented X3 Respiratory: Normal Air Movement Cardiovascular: Regular Rate Abdominal: Soft Skin: Other (Wound Vac in place on posterior neck) Discharge Home Medications Reviewed and agree with Discharge Medication list on patient's Discharge Instruction sheet Instructions to Patient/Family Please see electonic discharge instructions given to patient. Clinical Quality Measures DVT/VTE Risk/Contraindication: Risk Factor Score Per Nursin RFS Level Per Nursing on Admit: 2=Moderate TONNY RICHTER MD Dec 16, 2016 6:21 am
[2016-12-16] MEDS ORDERED: ALTEPLASE 2 MG (CATHFLO) IV NR (06:41)
[2016-12-16 07:45] VITALS: BP 143/69
[2016-12-16] MEDS: SENNOSIDES 8.6 MG (SENOKOT) TAB PO SCH (09:00)
[2016-12-16] MEDS: CEFEPIME INJECTION 2,000 MG in NS (IVPB) 50 ML IV SCH (09:01)
[2016-12-16] MEDS: lisINopril 20 MG (ZESTRIL) TAB PO SCH (09:03)
[2016-12-16] MEDS: ASPIRIN 325 MG (5 GR) TABLET PO SCH (09:05)
[2016-12-16 16:25] VITALS: BP 128/73
[2016-12-16] MEDS: amLODIPine 10 MG (NORVASC) TAB PO SCH (17:27)
[2016-12-16] MEDS: oxyCODONE/APAP 5/325MG (PERCOCET 5) TABLET PO PRN (17:35)
[2016-12-16 17:43] VITALS: BP 128/73
--- OUTSIDE RECORDS SUMMARY | 2017-01-11 21:44 | XMS REPORT ---
Author Author [email or web address] Medical Staff Organization [facility] Address [address] [place], [place] [address] Phone [phone] Care Team Providers Care Car Rental Manager Name Role Phone VADIM SINCLAIR APRN PP [phone] Summary purpose TRANSITION OF CARE AUTO GENERATION Chief Complaint and Reason for Visit No authorized Reason for Visit (Admitting Diagnosis) is available for this visit. Problem list No authorized problems tracked for continuity of care are available for this visit. Encounters No authorized problems tracked for encounter diagnoses are available for this visit. Medications No medications recorded for this patient visit Allergies, adverse reactions, alerts Allergen Category Ingredient Status Reaction Severity Onset codeine Drug Allergy codeine Confirmed or Verified Ultram Drug Allergy Ultram Confirmed or Verified Ultram Drug Allergy tramadol Confirmed or Verified Immunizations No immunizations recorded for this patient visit Relevant diagnostic tests and/or laboratory data RESULTS Chemistry [id number]:12:00 Result Normal Range Units Triglycerides H 307 35-160 mg/dl Cholesterol 159 120-200 mg/dl HDL Cholesterol 36 32-72 mg/dl VLDL Cholesterol H 61 5-40 mg/dl LDL Cholesterol 77 30-100 mg/dl Thyroid Testing [id number]:12:00 Result Normal Range Units TSH 3.05 0.36-3.74 uIU/mL Free T4 0.99 0.78-1.34 ng/dl History of procedures No procedures recorded for this patient visit. Functional status No functional or cognitive status observations are available for this visit. Vital signs No authorized vital signs are available for this visit. Social history No Social History or smoking status observations were recorded for this visit. ( Unknown if ever smoked.) Treatment Plan No treatment plan text is available for this visit. Hospital discharge instructions No discharge instruction text is available for this visit.
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
--- OUTSIDE RECORDS SUMMARY | 2017-01-11 21:45 | XMS REPORT ---
Author Author [facility] Medical Staff Organization [facility] Address [address] [place], [place] [address] Phone [phone] Care Team Providers Care Supervisor [employer] Name Role Phone VADIM SINCLAIR APRN PP [phone] Summary purpose TRANSITION OF CARE AUTO GENERATION Chief Complaint and Reason for Visit Admit Diagnosis 1 SCREEN-THYROID DISORDER Problem list No authorized problems tracked for [...] diagnostic tests and/or laboratory data RESULTS Chemistry [id number]:12:00 Result Normal Range Units Triglycerides H 307 35-160 mg/dl Cholesterol 159 120-200 mg/dl HDL Cholesterol 36 32-72 mg/dl VLDL Cholesterol H 61 5-40 mg/dl LDL Cholesterol 77 30-100 mg/dl Thyroid Testing [id number]:12:00 Result Normal Range Units TSH 3.05 0.36-3.74 uIU/mL Free T4 0.99 0.78-1.34 ng/dl History of procedures Procedure Code Code Type Description Date Performed Performing Physician 85489 CPT-4 ASSAY OF FREE THYROXINE 05-15-2015 VADIM SINCLAIR 64568 CPT-4 ASSAY THYROID STIM HORMONE 05-15-2015 VADIM SINCLAIR 68602 CPT-4 LIPID PANEL 05-15-2015 VADIM SINCLAIR Functional status No functional or cognitive status [...]
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
--- OUTSIDE RECORDS SUMMARY | 2017-01-11 21:46 | XMS REPORT ---
Author Author [facility] Medical Staff Organization [facility] Address [address] [place], [place] [address] Phone [phone] Summary purpose TRANSITION OF CARE AUTO GENERATION [...] tests and/or laboratory data RESULTS Routine Urinalysis 06-05-531278:35:00 Result Normal Range Units Color YELLOW Clarity Clear Specific [place] 1.008 1.003-1.035 pH 5.5 4.5-8.0 Glucose NEGATIVE Bilirubin NEGATIVE Ketones NEGATIVE Protein NEGATIVE Urobilinogen 0.2 0-0.2 E.U./dL Nitrites NEGATIVE Blood NEGATIVE Leukocytes NEGATIVE WBCs No WBC's Seen RBCs No RBC's Seen. Squamous Epithelial Few Chemistry 38-95-280812:45:00 Result Normal Range Units Sodium 142 134-145 [...] 10-20 Estimated GFR 78 >=60 mL/min/1.7 Hematology 19-96-129923:45:00 Result Normal Range Units WBC 9.3 4.8-10.8 103/uL RBC 5.8 4.7-6.1 106/uL HGB 17.1 13.0-18.0 g/dl HCT 49.4 41.9-52.0 % MCV 85.6 80-94 FL MCH 29.6 27-31 pg MCHC 34.6 33-37 g/dl RDW 12.4 11.5-15.5 % PLT 230 130-400 103/uL MPV 10.1 7.3-10.4 FL Special Chemistry 91-62-365037:45:00 Result Normal Range Units ETOH H 166.9 0-5 mg/dl Body Fluid 55-99-447209:35:00 Result Normal Range Units pH 5.5 4.5-8.0 Radiology Results 09-13-711654:45:00 Result Normal Range Units MPV 10.1 7.3-10.4 FL History of procedures Procedure Code Code Type Description Date Performed Performing Physician 46108 CPT-4 COMPLETE CBC, AUTOMATED 05-06-2015 TONNY PINEDA 89763 CPT-4 COMPREHEN METABOLIC PANEL 05-06-2015 TONNY PINEDA 47455 CPT-4 DRUG SCREEN QUANTALCOHOLS 05-06-2015 TONNY PINEDA 29138 CPT-4 ROUTINE VENIPUNCTURE 05-06-2015 TONNY PINEDA Functional status Functional Status Finding Observation Time Diet regular 73-24-098686:30 Abdomen Appearance flat 08-80-891106:30 Abdomen soft 72-25-825058:30 Bowel Sounds present 71-35-393224:30 Urination normal 30-86-445643:30 Quality sym/unlabored 32-98-919521:30 Cough absent 53-25-008276:30 Breath Sounds RUL clear 43-72-313058:30 Breath Sounds RML clear 86-27-032425:30 Breath Sounds RLL clear 27-46-202587:30 Breath Sounds BOUCHRA clear 40-83-622418:30 Breath Sounds LLL clear :30 Airway natural :30 Oxygen no :00 Temp >100.4 no : Temp <96.8 no :30 Chills with rigors no :30 HR > 90bpm no :30 Respirations > 20 no : Systolic <90 no : headache stiff neck no :30 Nursing Note dc inst discussed with pt. dcd to home in good condition with script x 1 :15 Vital signs Type Value Date Respiration Rate 18breaths per minute :00 Pulse 90beats per minute :00 Oxygen Saturation 99% 65-97-560750:00 BP Systolic 117mmHg 46-30-133269:00 BP Diastolic 66mmHg 57-93-367048:00 Temperature 97.1F 37-01-595804:00 Weight 212LB 46-65-313695:30 Social history Type Value Smoking Status FORMER SMOKER Treatment Plan No treatment plan text is available for this visit. Hospital discharge instructions Dismissal Condition good Disposition on DC home DC Inst/Educ Give yes Med/Side Effects Rev yes Flu Vac 2013
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
== END 2016-12-16 17:43 | disposition home health service (06) | DRG 921 ==
LOC: SDC 13:37 → 4TH 13:47 → SURG 13:48 → EDSTATUS 15:00 → 4TH 20:05
PROVIDERS: ADMIT Orthopaedic Surgery Orthopaedic Surgery of the Spine; ATTEND Orthopaedic Surgery Orthopaedic Surgery of the Spine
PROC: 3E10X8Z Irrigation of Skin and Mucous Membranes using Irrigating Substance (ICD-10-PCS; principal; 2016-12-11 17:39)
DX: T81.32XA Disruption of internal operation (surgical) wound, not elsewhere classified, initial encounter (principal); Z98.1 Arthrodesis status; Z87.891 Personal history of nicotine dependence; E78.00 Pure hypercholesterolemia, unspecified; I10 Essential (primary) hypertension; K21.9 Gastro-esophageal reflux disease without esophagitis
CPT/HCPCS: 36415; 36569; 71010; 76937; 80048; 80053; 80202; 85025; 85027; 85652; 86141; 87070; 87075; 87081; 87205; 94664

== ENCOUNTER 2017-01-18 01:56 | Emergency (ER) | payer BC ==
[~2017-01-18] VITALS: Ht 175.3 cm; Wt 104.3 kg
[~2017-01-18 01:56] MED LIST changes: +ASPI-808 PO; +CEFE2FRO IV; +OXYC-202 PO; +VANC1PLA9 IV
[2017-01-18] MEDS ORDERED: RT-ALBUTEROL/IPRATROPIUM 3 ML (DUONEB) VIAL ONE (01:59)
[2017-01-18] MEDS ORDERED: ACETAMINOPHEN 500 MG TAB (TYLENOL) PO ONE (02:15)
[2017-01-18] MEDS ORDERED: IBUPROFEN 800 MG (MOTRIN) TAB PO ONE (02:15)
[2017-01-18 02:19] LABS: ABG BASE EXCESS 0.3 MMOL/L (-2.5-2.5); ABG HCO3 24 MMOL/L (23-27); ABG OXYGEN SATURATION 99 % (94-100); ABG PCO2 44 MMHG (35-45); ABG PH 7.38 (7.37-7.43); ABG PO2 135 MMHG (79-93); ABG TCO2 25.4 MMOL/L (21.0-31.0)
[2017-01-18 02:20] LABS: ALLENS TEST YES-POS; PATIENT TEMP 103.8
[2017-01-18 02:29] LABS: BASOPHILS % (AUTO) 0 % (0-10); EOSINOPHILS % (AUTO) 1 % (0-10); LYMPHOCYTES # (AUTO) 1.2 X 10^3 (1.0-4.0); LYMPHOCYTES % (AUTO) 47 % (12-44); MEAN CORPUSCULAR HEMOGLOBIN 27 PG (25-34); MEAN CORPUSCULAR HGB CONC 33 G/DL (32-36); MEAN CORPUSCULAR VOLUME 82 FL (80-99); MEAN PLATELET VOLUME 9.9 FL (7.4-10.4); MONOCYTES # (AUTO) 0.3 X 10^3 (0.0-1.0); MONOCYTES % (AUTO) 11 % (0-12); NEUTROPHILS # (AUTO) 1.1 X 10^3 (1.8-7.8); NEUTROPHILS % (AUTO) 40 % (42-75); PLATELET COUNT 139 10^3/uL (130-400); RED CELL DISTRIBUTION WIDTH 13.6 % (10.0-14.5); WHITE BLOOD COUNT 2.6 10^3/uL (4.3-11.0)
[2017-01-18 02:37] LABS: PROTHROMBIN TIME PATIENT 13.1 SEC (12.2-14.7)
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
[2017-01-18 02:54] LABS: ALANINE AMINOTRANSFERASE 34 U/L (0-55); ANION GAP 12 MMOL/L (5-14); ASPARTATE AMINO TRANSFERASE 34 U/L (5-34); BILIRUBIN,TOTAL 0.3 MG/DL (0.1-1.0); BLOOD UREA NITROGEN 15 MG/DL (7-18); BUN/CREATININE RATIO 16; CALCIUM 9.3 MG/DL (8.5-10.1); CARBON DIOXIDE 23 MMOL/L (21-32); CHLORIDE 105 MMOL/L (98-107); CREATINE KINASE 47 U/L (30-200); CREATININE SERUM 0.96 MG/DL (0.60-1.30); GFR ESTIMATED > 60; GLUCOSE 124 MG/DL (70-105); MAGNESIUM 2.1 MG/DL (1.8-2.4); POTASSIUM 4.3 MMOL/L (3.6-5.0); SODIUM 140 MMOL/L (135-145)
[2017-01-18 03:14] LABS: TROPONIN I < 0.30 NG/ML (<0.30)
[2017-01-18] MEDS ORDERED: IOHEXOL 350 MG/ML 150 ML (OMNIPAQUE 350) VIAL IV ONE (03:15)
[2017-01-18] MEDS ORDERED: NS 100 ML (IVPB) BAG IV ONE (03:15)
[2017-01-18] MEDS ORDERED: NS IV 1000 ML 1,000 ML IV ONE (03:31)
[2017-01-18 03:36] LABS: BILIRUBIN,URINE NEGATIVE (NEGATIVE); KETONES,URINE NEGATIVE (NEGATIVE); LEUKOCYTE ESTERASE ,URINE NEGATIVE (NEGATIVE); NITRITE,URINE NEGATIVE (NEGATIVE); PH,URINE 5 (5-9); PROTEIN,URINE 2+ (NEGATIVE); UROBILINOGEN,URINE NORMAL (NORMAL)
[2017-01-18 03:45] LABS: HYALINE CASTS, URINE 0-2 /LPF; SQUAMOUS EPITHELIAL CELL,UR RARE /HPF
[2017-01-18] MEDS ORDERED: fentaNYL INJECTION 100 MCG/2 ML AMP IVP STA (05:28)
[2017-01-18 05:34] VITALS: BP 138/82
--- NOTE | 2017-01-18 09:46 | Diagnostic Imaging Report ---
PROCEDURE: CT angiography of the chest with contrast. TECHNIQUE: Multiple contiguous axial images were obtained through the chest after uneventful bolus administration of intravenous contrast. Reconstructed CTA MIP acquisitions were also performed. DATE: January 18, 2017. COMPARISON: Chest radiograph January 18, 2017. INDICATION: 51-year-old male, fever and shortness of breath. FINDINGS: There is mild atelectasis in the lingula. There is no additional focal airspace consolidation. There is no pneumothorax. There is no pleural effusion. There is no pulmonary nodule. The central airways are patent. There is no identified pulmonary embolus. The main pulmonary artery is normal in caliber. The heart is not enlarged. There is no pericardial effusion. There is no abnormally enlarged mediastinal or hilar lymph node. There are multiple abnormal appearing right axillary lymph nodes including examples on axial image 29 measuring up to approximately 12 mm in short axis. There are mildly prominent left axillary lymph nodes which do not appear as enlarged or abnormal in the lymph node morphology. Correlation for cause recommended. There is diffuse fatty infiltration of the liver. The main, right, and left portal vein are patent. The patient is status post cholecystectomy. Additional limited evaluation of the visualized portions of the upper abdomen is unremarkable. There are multilevel degenerative changes of the spine. There is partially visualized spinal fusion hardware. There is no identified acute bony abnormality. IMPRESSION: CT CHEST. 1. No identified acute cardiopulmonary abnormality. 2. Abnormal right axillary lymph nodes measuring up to 12 mm in short axis. Recommend correlation for causative etiology. No abnormally enlarged mediastinal or hilar lymph nodes or clearly identified causative etiology in the included [id number]. 3. Diffuse fatty infiltration of the liver. Dictated by: Dictated on workstation # [id number]
--- NOTE | 2017-01-18 11:04 | Diagnostic Imaging Report ---
INDICATION: Fever. COMPARISON: December 12, 2016 TECHNIQUE: Two radiographs of the chest dated January 18, 2017. FINDINGS: Post surgical changes are again identified within the cervicothoracic spine. Right-sided PICC line is identified. The PICC line has been slightly retracted since the prior examination with the distal tip now identified within the mid superior vena cava. The cardiac silhouette is within normal limits in size. No significant pulmonary vascular congestion. Low lung volumes, though the lungs appear clear. No pleural effusion. No pneumothorax. No acute osseous abnormality with scattered osseous degenerative changes. Surgical clips are present within the right upper quadrant of the abdomen. IMPRESSION: Slight interval retraction of the right-sided PICC line with the distal tip now seen within the mid superior vena cava. No acute cardiopulmonary abnormality. Additional postsurgical and chronic findings, as above. Dictated by: Dictated on workstation # [id number]
== END 2017-01-18 05:34 | disposition short-term general hospital (02) ==
LOC: EDUNIT# 01:56 → ER 01:58
DX: T81.4XXA Infection following a procedure, initial encounter (principal); R06.00 Dyspnea, unspecified; R50.9 Fever, unspecified; D70.9 Neutropenia, unspecified; K76.0 Fatty (change of) liver, not elsewhere classified; R59.0 Localized enlarged lymph nodes; I10 Essential (primary) hypertension; Z79.899 Other long term (current) drug therapy; Z79.82 Long term (current) use of aspirin; Z98.890 Other specified postprocedural states; Z97.8 Presence of other specified devices
CPT/HCPCS: 36415; 71020; 71275; 80053; 81000; 82550; 82553; 82805; 83605; 83735; 83880; 84484; 85025; 85610; 85730; 87040; 93041; 94640; 96361; 96374

== ENCOUNTER → 2017-03-17 | Outpatient (RCR) | payer BC ==
[~2017-03-17] MED LIST changes: +ALPRAZolam 0.5 MG (XANAX) TAB PO NR; +ALPRAZolam 0.5 MG (XANAX) TAB PO ONE; +ALPRAZolam 0.5 MG (XANAX) TAB PO PRN
== END | disposition home or self-care (01) ==
LOC: WOUNDCARE 12-17 12:46
PROVIDERS: ATTEND Surgery
DX: L98.493 Non-pressure chronic ulcer of skin of other sites with necrosis of muscle (principal); T81.31XA Disruption of external operation (surgical) wound, not elsewhere classified, initial encounter; S11.89XD Other open wound of other specified part of neck, subsequent encounter
CPT/HCPCS: 11042; 11043; 11045; 11046; 87070; 87075; 87077; 87186; 87205; 97605; 97606; 99183

== ENCOUNTER 2017-04-03 08:32 | Outpatient (RCR) | payer BC ==
[~2017-04-03 08:32] MED LIST changes: -ALPRAZolam 0.5 MG (XANAX) TAB PO NR; -ALPRAZolam 0.5 MG (XANAX) TAB PO ONE; -ALPRAZolam 0.5 MG (XANAX) TAB PO PRN
== END 2017-04-06 16:00 | disposition home or self-care (01) ==
LOC: WOUNDCARE 08:32
PROVIDERS: ATTEND Surgery
DX: L98.493 Non-pressure chronic ulcer of skin of other sites with necrosis of muscle (principal); T81.31XA Disruption of external operation (surgical) wound, not elsewhere classified, initial encounter
CPT/HCPCS: 11042; 99183

== ENCOUNTER → 2017-04-10 | Outpatient (CLI) | payer BC | LOC: WOUNDCARE 08:25 | PROVIDERS: ATTEND Surgery | DX: T81.31XA Disruption of external operation (surgical) wound, not elsewhere classified, initial encounter (principal); S11.89XD Other open wound of other specified part of neck, subsequent encounter; L98.492 Non-pressure chronic ulcer of skin of other sites with fat layer exposed | CPT/HCPCS: 99212 ==

== ENCOUNTER → 2017-04-17 | Outpatient (CLI) | payer BC | LOC: WOUNDCARE 08:35 | PROVIDERS: ATTEND Surgery | DX: T81.31XA Disruption of external operation (surgical) wound, not elsewhere classified, initial encounter (principal); S11.89XD Other open wound of other specified part of neck, subsequent encounter; L98.492 Non-pressure chronic ulcer of skin of other sites with fat layer exposed | CPT/HCPCS: 97597 ==

== ENCOUNTER → 2017-04-24 | Outpatient (CLI) | payer BC ==
[~2017-04-24] MED LIST changes: -NAPR500T3 PO; +NAPR500T4 PO
== END ==
LOC: WOUNDCARE 10:00
PROVIDERS: ATTEND Surgery
DX: T81.31XA Disruption of external operation (surgical) wound, not elsewhere classified, initial encounter (principal); S11.89XD Other open wound of other specified part of neck, subsequent encounter; L98.492 Non-pressure chronic ulcer of skin of other sites with fat layer exposed
CPT/HCPCS: 99212

== ENCOUNTER → 2017-06-10 | Outpatient (CLI) | payer BC ==
[~2017-06-10] MED LIST changes: +NAPR500T3 PO; -NAPR500T4 PO
[2017-06-10 09:44] LABS: BASOPHILS % (AUTO) 1 % (0-10); EOSINOPHILS # (AUTO) 0.1 10^3/uL (0.0-0.3); EOSINOPHILS % (AUTO) 2 % (0-10); LYMPHOCYTES # (AUTO) 1.8 X 10^3 (1.0-4.0); LYMPHOCYTES % (AUTO) 31 % (12-44); MEAN CORPUSCULAR HEMOGLOBIN 28 PG (25-34); MEAN CORPUSCULAR HGB CONC 34 G/DL (32-36); MEAN CORPUSCULAR VOLUME 82 FL (80-99); MEAN PLATELET VOLUME 10.7 FL (7.4-10.4); MONOCYTES # (AUTO) 0.6 X 10^3 (0.0-1.0); MONOCYTES % (AUTO) 10 % (0-12); NEUTROPHILS # (AUTO) 3.3 X 10^3 (1.8-7.8); NEUTROPHILS % (AUTO) 57 % (42-75); PLATELET COUNT 221 10^3/uL (130-400); RED BLOOD COUNT 5.86 10^6/uL (4.35-5.85); RED CELL DISTRIBUTION WIDTH 14.4 % (10.0-14.5); WHITE BLOOD COUNT 5.8 10^3/uL (4.3-11.0)
[2017-06-10 10:06] LABS: ALANINE AMINOTRANSFERASE 45 U/L (0-55); ANION GAP 8 MMOL/L (5-14); ASPARTATE AMINO TRANSFERASE 22 U/L (5-34); BILIRUBIN,TOTAL 1.2 MG/DL (0.1-1.0); BLOOD UREA NITROGEN 12 MG/DL (7-18); BUN/CREATININE RATIO 12; CALCIUM 9.1 MG/DL (8.5-10.1); CARBON DIOXIDE 24 MMOL/L (21-32); CHLORIDE 105 MMOL/L (98-107); CHOLESTEROL 160 MG/DL (< 200); CREATININE SERUM 0.99 MG/DL (0.60-1.30); DIRECT LDL 40 MG/DL (1-129); GFR ESTIMATED > 60; GLUCOSE 148 MG/DL (70-105); POTASSIUM 4.1 MMOL/L (3.6-5.0); SODIUM 137 MMOL/L (135-145); TOTAL PROTEIN 6.9 GM/DL (6.4-8.2); TRIGLYCERIDES 667 MG/DL (<150); VLDL CHOLESTEROL 133 MG/DL (5-40)
== END ==
LOC: LAB 09:21
PROVIDERS: ATTEND Physician Assistant
DX: E78.5 Hyperlipidemia, unspecified; R53.83 Other fatigue; I10 Essential (primary) hypertension
CPT/HCPCS: 36415; 80053; 80061; 84402; 84403; 84443; 85025

== ENCOUNTER 2017-10-18 12:11 | Emergency (ER) | payer OTHER, BC ==
[~2017-10-18] VITALS: Ht 175.3 cm; Wt 104.3 kg
[~2017-10-18 12:11] MED LIST changes: -NAPR500T3 PO; +NAPR500T4 PO
--- NOTE | 2017-10-18 12:56 | Diagnostic Imaging Report ---
PROCEDURE: CT head and CT cervical spine without contrast. TECHNIQUE: Multiple contiguous axial images were obtained through the brain and cervical spine without the use of intravenous contrast. Sagittal and coronal reformations through the cervical spine were then performed. INDICATION: Fall. Head injury. Headache. Visual disturbances. COMPARISON: MRI brain without and with IV contrast 11/05/2016. FINDINGS: CT head: No intracranial hemorrhage, mass effect, hydrocephalus or extra axial fluid collections. No CT evidence of acute infarction. Osseous structures are intact. The visualized paranasal sinuses and mastoids are clear. CT cervical spine: There are postoperative findings of bilateral mil and pedicle screw fixation spanning C2-T2 with laminectomies at C3-C7. Hardware components are intact. No evidence of loosening. 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 There are moderate to advanced degenerative endplate changes throughout the cervical spine, most marked at C5-C6. Vertebral body heights preserved. No fractures. IMPRESSION: 1. No acute intracranial or cervical spine CT findings. 2. Postoperative findings in the cervical spine described above. No evidence of hardware failure. Dictated by: Dictated on workstation # [id number]
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
[2017-10-18 13:10] VITALS: BP 116/67
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
== END 2017-10-18 13:10 | disposition home or self-care (01) ==
LOC: EDUNIT# 12:11 → ER 12:13
DX: S16.1XXA Strain of muscle, fascia and tendon at neck level, initial encounter (principal); K21.9 Gastro-esophageal reflux disease without esophagitis; G43.909 Migraine, unspecified, not intractable, without status migrainosus; E78.00 Pure hypercholesterolemia, unspecified; I10 Essential (primary) hypertension; G47.30 Sleep apnea, unspecified; Z90.49 Acquired absence of other specified parts of digestive tract; Z90.89 Acquired absence of other organs; Z87.891 Personal history of nicotine dependence; Z79.82 Long term (current) use of aspirin; Z88.5 Allergy status to narcotic agent; Z88.6 Allergy status to analgesic agent; W00.0XXA Fall on same level due to ice and snow, initial encounter
CPT/HCPCS: 70450; 72125; 99282

== ENCOUNTER 2021-07-25 23:15 | Emergency (ER) | payer BC ==
[~2021-07-25] VITALS: Ht 175.3 cm; Wt 97.5 kg
[~2021-07-25 23:15] MED LIST changes: +AMLO-251 PO; -AMLO10TA2 PO; -DIAZ5TAB3 PO; +DIAZ5TAB49 PO; -LISI-552 PO; -LISI-556 PO; +LISI-729 PO; +LISI20TA26 PO; +NAPR-915 PO; -NAPR500T4 PO; -OXYC-202 PO; -OXYC-465 PO; +OXYC-556 PO; +OXYC1TAB12 PO; -SENN-1 PO; +SENN-145 PO
[2021-07-25 23:38] LABS: BASOPHILS % (AUTO) 1 % (0-10); EOSINOPHILS # (AUTO) 0.2 10^3/uL (0.0-0.3); EOSINOPHILS % (AUTO) 3 % (0-10); HEMATOCRIT 49 % (40-54); HEMOGLOBIN 16.2 g/dL (13.3-17.7); LYMPHOCYTES # (AUTO) 2.7 10^3/uL (1.0-4.0); LYMPHOCYTES % (AUTO) 36 % (12-44); MEAN CORPUSCULAR HEMOGLOBIN 29 pg (25-34); MEAN CORPUSCULAR HGB CONC 33 g/dL (32-36); MEAN CORPUSCULAR VOLUME 87 fL (80-99); MEAN PLATELET VOLUME 10.4 fL (9.0-12.2); MONOCYTES # (AUTO) 0.7 10^3/uL (0.0-1.0); MONOCYTES % (AUTO) 9 % (0-12); NEUTROPHILS # (AUTO) 3.8 10^3/uL (1.8-7.8); NEUTROPHILS % (AUTO) 51 % (42-75); PLATELET COUNT 272 10^3/uL (130-400); WHITE BLOOD COUNT 7.5 10^3/uL (4.3-11.0)
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
[2021-07-25 23:49] LABS: CHLORIDE 104 MMOL/L (98-107); POTASSIUM 3.8 MMOL/L (3.6-5.0); SODIUM 141 MMOL/L (135-145)
[2021-07-25 23:50] LABS: CALCIUM 9.3 MG/DL (8.5-10.1)
[2021-07-25 23:51] LABS: GLUCOSE 94 MG/DL (70-105)
[2021-07-25 23:52] LABS: CARBON DIOXIDE 23 MMOL/L (21-32)
[2021-07-25 23:55] LABS: CREATININE SERUM 1.09 MG/DL (0.60-1.30); GFR ESTIMATED 70
[2021-07-25 23:56] LABS: BUN/CREATININE RATIO 12
[2021-07-25 23:57] LABS: CREATINE KINASE 43 U/L (30-200)
--- NOTE | 2021-07-26 00:11 | Diagnostic Imaging Report ---
EXAM: CHEST 1 VIEW, AP/PA ONLY INDICATION: Chest pain. COMPARISON: 12/12/2016 FINDINGS: Normal heart size and central pulmonary vascularity. Mild atelectasis or infiltrate in the medial right lung base. No pleural effusion or pneumothorax. No acute osseous findings. IMPRESSION: Mild atelectasis or infiltrate in the medial right lung base. Dictated by: Dictated on workstation # [id number]
[2021-07-26] MEDS ORDERED: KETOROLAC 30 MG/ML VIAL IVP ONE (00:15)
[2021-07-26 00:35] VITALS: BP 140/85
== END 2021-07-26 00:37 | disposition home or self-care (01) ==
LOC: EDUNIT# 23:15 → ER 23:19
DX: R07.9 Chest pain, unspecified (principal); G47.30 Sleep apnea, unspecified; I10 Essential (primary) hypertension; E78.00 Pure hypercholesterolemia, unspecified; Z79.82 Long term (current) use of aspirin
CPT/HCPCS: 36415; 71045; 80048; 82550; 84484; 85025; 93005

== ENCOUNTER → 2022-02-06 | Outpatient (CLI) | payer BC ==
[~2022-02-06] MED LIST changes: -LISI-729 PO; +LISI5TAB20 PO
[2022-02-06 12:37] LABS: HEMATOCRIT 48 % (40-54); HEMOGLOBIN 16.3 g/dL (13.3-17.7); MEAN CORPUSCULAR HEMOGLOBIN 29 pg (25-34); MEAN CORPUSCULAR HGB CONC 34 g/dL (32-36); MEAN CORPUSCULAR VOLUME 86 fL (80-99); MEAN PLATELET VOLUME 10.5 fL (9.0-12.2); PLATELET COUNT 274 10^3/uL (130-400); WHITE BLOOD COUNT 9.6 10^3/uL (4.3-11.0)
--- NOTE | 2022-02-06 12:39 | Diagnostic Imaging Report ---
PROCEDURE: CT urinary tract, rule out kidney stone. TECHNIQUE: Multiple contiguous axial images were obtained through the abdomen and pelvis without the use of intravenous contrast. Auto Exposure Controls were utilized during the CT exam to meet ALARA standards for radiation dose reduction. INDICATION: Right flank pain and hematuria. I have no priors. At the L3-L4 disc space level, there is a calculus in the proximal right ureter in axial plane measuring 4.9 mm maximal and in the coronal plane measuring 6.8 mm cephalocaudal. The stone morphology is somewhat jagged and irregular. This calculus results in mild upstream right hydroureteronephrosis and very slight perinephric stranding. No urinoma or fluid collection. The unobstructed left kidney appeared normal and no additional radiopaque urinary tract calculi. There is mild noninflamed diverticulosis of the sigmoid. There is no appendicitis. There is no bowel obstruction. There is no pneumatosis, free air, ascites, abscess, hematoma or other acute fluid collection. The gallbladder surgically absent with no pathological distention of the biliary ducts. Spleen, adrenals and pancreas negative. The aorta nonaneurysmal. IMPRESSION: 1. Prominent proximal right ureteral stone has an irregular morphology but results in mild upstream right hydroureteronephrosis. 2. No additional significant finding. Dictated by: Dictated on workstation # [id number]
[2022-02-06 12:45] LABS: ALBUMIN 4.5 GM/DL (3.2-4.5); POTASSIUM 4.4 MMOL/L (3.6-5.0)
[2022-02-06 12:46] LABS: CALCIUM 9.9 MG/DL (8.5-10.1)
[2022-02-06 12:48] LABS: TOTAL PROTEIN 7.1 GM/DL (6.4-8.2)
[2022-02-06 12:50] LABS: BILIRUBIN,TOTAL 1.3 MG/DL (0.1-1.0)
[2022-02-06 12:51] LABS: CREATININE SERUM 1.15 MG/DL (0.60-1.30)
== END ==
LOC: RAD 12:30
PROVIDERS: ATTEND Physician Assistant
DX: N13.30 Unspecified hydronephrosis (principal)
CPT/HCPCS: 36415; 74176; 80053; 85027

== ENCOUNTER → 2022-02-10 | Outpatient (CLI) | payer BC ==
--- NOTE | 2022-02-10 18:03 | Diagnostic Imaging Report ---
INDICATION: Right ureteral stone. Right flank pain. EXAMINATION: Abdomen from 02/10/2022. FINDINGS: There is scattered air and stool throughout the colon to the rectosigmoid with no dilated loops of bowel or free air. There is a small linear hyperdensity proximal to the L3 transverse process measuring 7.3 mm in length. This could represent a ureteral stone and could be better characterized with CT as clinically warranted. This likely corresponds to the stone seen in the proximal right ureter on CT from 02/06/2022. No other suspected ureteral stones appreciated. There are degenerative changes in the hips. IMPRESSION: 1. Just over 7 mm density along the right aspect of the abdomen, possibly the previously noted stone. Nonobstructive bowel gas pattern. Dictated by: Dictated on workstation # [id number]
== END ==
LOC: RAD 17:06
PROVIDERS: ATTEND Physician Assistant
DX: N20.1 Calculus of ureter (principal)
CPT/HCPCS: 74018

== ENCOUNTER → 2022-02-11 | Outpatient (CLI) | payer BC ==
--- NOTE | 2022-02-11 12:24 | Diagnostic Imaging Report ---
INDICATION: Right-sided kidney stone. TIME OF EXAM: 11:50 AM Correlation is made with prior radiograph from one day earlier. FINDINGS: Vague calcific density in the right abdomen is noted. This projects between the transverse processes of L1 and L2. This again may be within the distribution of the proximal right ureter. No other definite urinary tract calculi are seen. The bowel gas pattern is unremarkable. There are surgical clips in the gallbladder fossa. IMPRESSION: Probable right ureteral calculus not significantly changed in location when compared with prior imaging. Dictated by: Dictated on workstation # [id number]
== END ==
LOC: RAD 11:26
PROVIDERS: ATTEND Physician Assistant
DX: N20.0 Calculus of kidney (principal)
CPT/HCPCS: 74018

== ENCOUNTER 2022-02-17 15:06 | Outpatient (CLI) | payer BC ==
[~2022-02-17] VITALS: Ht 175.3 cm; Wt 95.0 kg
[~2022-02-17 15:06] MED LIST changes: -KETO10TA PO; -NITR-65 PO; -TMSL.4C PO
[2022-02-18] MEDS ORDERED: KETO10TA PO ×2 (09:16)
[2022-02-18] MEDS ORDERED: NITR-65 PO ×2 (09:18)
[2022-02-18] MEDS ORDERED: TMSL.4C PO ×2 (09:19)
== END 2022-02-17 16:54 | disposition home or self-care (01) ==
LOC: PREOP 15:06
PROVIDERS: ATTEND Urology
DX: Z01.818 Encounter for other preprocedural examination (principal)

== ENCOUNTER → 2022-02-17 | Outpatient (CLI) | payer BC ==
[~2022-02-17] MED LIST changes: +KETO10TA PO; +NITR-65 PO; +TMSL.4C PO
--- NOTE | 2022-02-17 17:06 | Diagnostic Imaging Report ---
EXAMINATION: Abdomen 1 view HISTORY: Renal stone COMPARISON: 02/11/2022 FINDINGS: There is a stable 5 mm calcification projecting over the right paraspinal space, possibly within the ureter. No dilated bowel. No free or. Gallbladder is absent. IMPRESSION: 1. Stable 5 mm calcification projecting over the right paraspinal space, possibly within the ureter. Dictated by: Dictated on workstation # [id number]
== END ==
LOC: RAD 13:38
PROVIDERS: ATTEND Urology
DX: N20.2 Calculus of kidney with calculus of ureter (principal)
CPT/HCPCS: 74018

== ENCOUNTER 2022-02-18 06:07 | Day surgery (SDC) | payer BC ==
[2022-02-18] VITALS (9 sets, daily range): BP systolic 80–145; BP diastolic 50–85
[~2022-02-18] VITALS: Ht 175.3 cm; Wt 95.0 kg
[2022-02-18] MEDS ORDERED: cefTRIAXone 1 GM PRE-MIX 50 ML IV ONE (06:45)
[2022-02-18] MEDS ORDERED: CATHETER FLUSH 10 ML SYR IVP PRN (06:45)
--- NOTE | 2022-02-18 06:56 | Diagnostic Imaging Report ---
INDICATION: Status post ESWL. COMPARISON: 02/17/2022 FINDINGS: 2 frontal radiographic views of the abdomen were obtained. There is asymmetric opaque prominence of the far lateral margins of the transverse process of the L2 vertebral body. This may be on the basis of superimposition of patient's known collecting system calculus. No other unexpected extraosseous calcifications or radiopaque foreign bodies are seen. Small bowel loops are nondistended. There is no large collection of free intraperitoneal air. Osseous structures show no gross acute abnormalities. IMPRESSION: 1. Patient's known collecting system calculus appears to project over the right transverse process of L2. 2. Nonobstructive small bowel gas pattern. Dictated by: Dictated on workstation # [id number]
[2022-02-18] MEDS ORDERED: proPOfol 200 MG/20 ML (DIPRIVAN) VIAL IV ONE (07:02)
[2022-02-18] MEDS ORDERED: LIDOCAINE PF 2% 5 ML (XYLOCAINE) VIAL ONE (07:02)
[2022-02-18] MEDS ORDERED: ONDANSETRON 4 MG/2 ML (SDV) Z0FRAN ONE (07:02)
[2022-02-18] MEDS ORDERED: fentaNYL INJ 100 MCG/2 ML AMP ONE (07:03)
[2022-02-18] MEDS ORDERED: MIDAZOLAM 2 MG/2 ML (VERSED) VIAL ONE (07:03)
--- NOTE | 2022-02-18 07:05 | Progress Note-Pre Operative ---
Pre-Operative Progress Note H&P Reviewed The H&P was reviewed, patient examined and no changes noted. Date Seen by Provider: Feb 18, 2022 Time Seen by Provider: 07:05 Date H&P Reviewed: Feb 18, 2022 Time H&P Reviewed: 07:05 Pre-Operative Diagnosis: RT PROXIMAL URETERAL STONE MADAN MENDOZA MD Feb 18, 2022 07:05
[2022-02-18] MEDS ORDERED: KETOROLAC 30 MG/ML VIAL ONE (07:17)
[2022-02-18] MEDS ORDERED: FUROSEMIDE 40 MG/4 ML INJ (LASIX) ONE (07:17)
--- NOTE | 2022-02-18 07:24 | Progress Note-Post Operative ---
Post-Operative Progess Note Surgeon (s)/Director Of Event Management (s) Surgeon MADAN MENDOZA MD Director Of Event Management: NONE Pre-Operative Diagnosis RT PROXIMAL URETERAL STONE Post-Operative Diagnosis SAME Procedure & Operative Findings Date of Procedure 02/18/22 Procedure Performed/Findings RT ESWL Anesthesia Type GENERAL Estimated Blood Loss Estimated blood loss (mL): NONE Specimens/Packing Specimens Removed NONE Packing: NONE MADAN MENDOZA MD Feb 18, 2022 07:24
--- NOTE | 2022-02-18 07:26 | Discharge Inst-Urology ---
Discharge Inst-Urology Reconcile Patient Problems Problems Reviewed?: Yes Final Diagnosis RT PROXIMAL URETERAL STONE Patient Instructions/Follow Up Plan/Assessment/Instructions Please make appointment to been seen in office Saturday 03/03, KUB prior to it. KUB on way home Post ESWL instructions Increase oral fluids for 48 hours and then as needed. Diet and Activity as tolerated. If questions or concerns contact your physician Or seek help at emergency department. MADAN MENDOZA MD Feb 18, 2022 07:26
[2022-02-18] MEDS ORDERED: SEVOFLURANE (ULTANE) 15 ML INHAL SOLN ONE (07:43)
[2022-02-18] MEDS ORDERED: LACTATED RINGERS 1,000 ML IV PRN (07:45)
[2022-02-18] MEDS ORDERED: morphine INJ 10 MG/ML 1ML (SYR OR VIAL) IVP ONE (08:00)
[2022-02-18] MEDS ORDERED: ONDANSETRON 4 MG/2 ML (SDV) Z0FRAN IVP PRN (08:00)
--- NOTE | 2022-02-18 08:35 | Anesthesia-General Post-Op ---
General Patient Condition Mental Status/LOC: Same as Preop Cardiovascular: Satisfactory Nausea/Vomiting: Absent Respiratory: Satisfactory Pain: Controlled Complications: Absent Post Op Complications Complications None Follow Up Care/Instructions Patient Instructions None needed. Anesthesia/Patient Condition Patient Condition Patient is doing well in PACU, C/O minimal sore throat which is not uncommon with LMA placement, stable vital signs, no apparent adverse anesthesia problems. No complications reported per nursing. DON MILLAN DO Feb 18, 2022 08:35
[2022-02-18] MEDS ORDERED: KETO10TA PO ×2 (09:16)
[2022-02-18] MEDS ORDERED: NITR-65 PO ×2 (09:18)
[2022-02-18] MEDS ORDERED: TMSL.4C PO ×2 (09:19)
--- NOTE | 2022-02-18 12:58 | OPERATIVE REPORT ---
DATE OF SERVICE: 02/18/2022 PREOPERATIVE DIAGNOSIS: Right proximal ureteral stone. POSTOPERATIVE DIAGNOSIS: Right proximal ureteral stone. OPERATION PERFORMED: Right ESWL. SURGEON: Cisco Mendoza MD ANESTHESIA: General. COMPLICATIONS: None. DESCRIPTION OF PROCEDURE: Under satisfactory general anesthesia, the patient in supine position on the ESWL bed, the right proximal ureteral stone was localized. Shocks were delivered at kV of 6. Total of 2500 shocks completely fragmented the stone. The patient received 40 mg of Lasix and 30 mg of Toradol IV at the end of the procedure. He tolerated the procedure and anesthesia well and was sent to recovery room in stable condition. CC: Dr. Shaw - requested, unable to deliver. 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
== END 2022-02-18 09:46 | disposition home or self-care (01) ==
LOC: SDC 06:07
PROVIDERS: ATTEND Urology
DX: N20.1 Calculus of ureter (principal)
CPT/HCPCS: 74018; 87081